=== PATIENT | male | born 1935 | race Caucasian/White ===

== ENCOUNTER 2019-01-16 11:40 | Emergency (ER) | payer MEDICARE, OTHER ==
--- NOTE | 2019-01-16 12:14 | EDM.PDOC ---
ED HPI GENERAL MEDICAL PROBLEM - General Chief Complaint: Lower Extremity Injury/Pain Stated Complaint: FALL - HIP PAIN Time Seen by Provider: 01/16/19 12:14 Source of Information: Reports: Patient, Family History Limitations: Reports: No Limitations - History of Present Illness INITIAL COMMENTS - FREE TEXT/NARRATIVE: The patient presents with left hip pain from a fall. He says last night he slipped and fell and landed on his let hip. He also hit his head. He complains of left hip pain. He can walk with a walker but it hurts. He denies any headache or neck pain. He did have a head bleed in September. He was on blood thinners at that time. He is no longer on the blood thinners. He was sent to [place] at that time and he had jhonny holes. He has been doing good. He denies chest pain or abdominal pain. He has no nausea or vomiting. Onset: Sudden Duration: Day(s): (last night) Location: Reports: Lower Extremity, Left (hip) Quality: Reports: Sharp Severity: Moderate Improves with: Reports: Immobilization Worsens with: Reports: Movement Context: Reports: Trauma (He fell last night) Associated Symptoms: Reports: No Other Symptoms Left Hip Pain Score (Numeric/FACES): 7 - Related Data Allergies Allergy/AdvReac Type Severity Reaction Status Date / Time Penicillins Allergy Hives Verified 01/16/19 12:13 Home Meds: Home Meds Tamsulosin [Flomax] 0.4 mg PO BEDTIME 01/24/15 [History] Aspirin [Halfprin] 81 mg PO DAILY 12/28/15 [History] Furosemide 40 mg PO DAILY 12/28/15 [History] Metoprolol Tartrate 25 mg PO BID 12/28/15 [History] Timolol Maleate [Timoptic-XE 0.5% Ophth Gel] 1 drop EYEBOTH DAILY 12/28/15 [ History] Acetaminophen [Tylenol] 650 mg PO 10/09/18 [History] Finasteride 5 mg PO DAILY 10/09/18 [History] Insulin Lispro [HumaLOG] 0 unit SQ QID 10/09/18 [History] Omeprazole 20 mg PO BIDAC 10/09/18 [History] Ondansetron [Zofran ODT] 4 mg PO Q6H PRN 10/09/18 [History] Sennosides [Senna] 8.6 mg PO DAILY 10/09/18 [History] atorvaSTATin [Lipitor] 40 mg PO BEDTIME 10/09/18 [History] metFORMIN [Glucophage] 500 mg PO BIDMEALS 10/09/18 [History] Past Medical History HEENT History: Reports: Impaired Vision Cardiovascular History: Reports: Hypertension Gastrointestinal History: Reports: Inflammatory Bowel Disease Other Gastrointestinal History: Hernia Genitourinary History: Reports: BPH Neurological History: Reports: CVA, Head Trauma, Other (See Below) 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 Psychiatric History: Reports: None Immunologic History: Reports: Other (See Below) - Past Surgical History HEENT Surgical History: Reports: Cataract Surgery Male Surgical History: Reports: Other (See Below) Musculoskeletal Surgical History: Reports: Carpal Tunnel, Knee Replacement Social & Family History - Living Situation & Occupation Living situation: Reports: , with Spouse Occupation: Retired Review of Systems - Review of Systems Review Of Systems: See Below Constitutional: Reports: No Symptoms Eyes: Reports: No Symptoms Ears: Reports: No Symptoms Nose: Reports: No Symptoms Mouth/Throat: Reports: No Symptoms Respiratory: Reports: No Symptoms Cardiovascular: Reports: No Symptoms GI/Abdominal: Reports: No Symptoms Genitourinary: Reports: No Symptoms Musculoskeletal: Reports: Other (Left hip pain with movement and palpation) ED EXAM, GENERAL - Physical Exam Exam: See Below Exam Limited By: No Limitations General Appearance: Alert, No Apparent Distress Ears: Normal External Exam Nose: Normal Inspection Head: Atraumatic, Normocephalic Neck: Normal Inspection, Supple, Non-Tender Respiratory/Chest: No Respiratory Distress, Lungs Clear, Normal Breath Sounds Cardiovascular: Regular Rate, Rhythm, No Edema, No Murmur GI/Abdominal: Soft, Non-Tender, No Organomegaly, No Mass Extremities: Other (Pain upon palpation to the left hip and pain with intarnal and external rotation of the hip) Course - Vital Signs Last Recorded V/S: Last Vital Signs Temp 98.5 F 01/16/19 12:13 Pulse 79 01/16/19 12:13 Resp 18 01/16/19 12:13 BP 124/72 01/16/19 12:13 Pulse Ox 97 01/16/19 12:13 - Re-Assessments/Exams Free Text/Narrative Re-Assessment/Exam: 01/16/19 12:[address] of his head and left hip. 01/16/19 13:[address] of his head shows a small acute subdural hematoma overlying the left parietal region. This has maximum thickness of 3.4mm. Other senescent change which is stable. Slightly comminuted and minimally displaced fracture within the greater trochanter of the left proximal femur. Degenerative change and osteopenia. No other acute abnormality is appreciated. I called [facility] in [place] and talked with the neurosurgeon continuous pickling line pickler helper Dr Diallo and he did not feel the patient needed to be admitted. He wanted a repeat CT in 4 to 6 weeks. I also talked to Dr Shepard the orthopedic surgeon continuous pickling line pickler helper in [place] and he looked at the CT and he says this is not operable and he wanted him weight bearing as tolerated. I let the patient and family know and they were relieved. The do want to go home. I will have him follow up with Dr Bray. 01/16/19 14:04 He does have a walker at home. Departure - Departure Time of Disposition: 14:05 Disposition: Home, Self-Care 01 Condition: Good Clinical Impression: Fall Qualifiers: Encounter type: initial encounter Qualified Code(s): W19.XXXA - Unspecified fall, initial encounter Greater trochanter fracture Qualifiers: Encounter type: initial encounter Fracture type: closed Fracture alignment: nondisplaced Laterality: left Qualified Code(s): S72.115A - Nondisplaced fracture of greater trochanter of left femur, initial encounter for closed fracture - Discharge Information *PRESCRIPTION DRUG MONITORING PROGRAM REVIEWED*: Not Applicable *COPY OF PRESCRIPTION DRUG MONITORING REPORT IN PATIENT CHHAYA: Not Applicable Referrals: Jarad Montana MD [Primary Care Provider] - Shubham Bray MD [Physician] - 1 Week Rip Diallo MD [Consulting Physician] - Forms: ED Department Discharge Additional Instructions: Take your medication as prescribed. Ice your hip for 15 minutes every other hour while awake for 2 days. Weight bear as tolerated for 4 weeks. Have a follow up CT in 4 to 6 weeks. Follow up with Dr Diallo and Dr Bray. Please return if you have any headache, nausea, vomiting or if you are not acting right.
[2019-01-16 12:16] VITALS: BP 124/72
--- NOTE | 2019-01-16 13:08 | CT ---
Pelvis Technique: Multiple axial sections through the pelvis were obtained. Intravenous contrast was not utilized. Study performed as a bone algorithm exam. Findings: Comminuted fracture is identified within the greater trochanter of the left proximal femur. Greatest fracture widening is about 6.5 mm. Chondrocalcinosis is noted within both hips. Medial joint space narrowing is seen within the left hip. Small osteophyte noted off the left femoral head. Bony structures are osteopenic. No additional fracture is appreciated. Degenerative change is noted within the visualized lower lumbar spine. Impression: 1. Slightly comminuted and minimally displaced fracture within the greater trochanter of the left proximal femur. 2. Degenerative change and osteopenia. No other acute abnormality is appreciated. Diagnostic code #3
--- NOTE | 2019-01-16 13:08 | CT ---
Head CT Technique: Multiple axial sections through the brain were obtained. Intravenous contrast was not utilized. Comparison: Previous head CT study of 10/09/18. Findings: Small amount of acute blood is seen in a subdural location overlying the left parietal region. Thickness of this subdural collection is 3.4 mm. This is an interval change from previous exam. Prior study showed a right-sided subdural hematoma which is no longer present. Ventricles along with basal cisterns and sulci over the convexities are moderately prominent. Symmetric increase in size of the subdural spaces are noted on both sides most prominent anteriorly which is stable from prior head CT. Old infarct is noted within the right occipital lobe. Mild diminished density is noted within the periventricular and subcortical white matter compatible with small vessel ischemic demyelination change. Old infarct is noted within the left basal ganglia. Bone window settings were reviewed which show no acute calvarial abnormality. Visualized sinuses are clear. Impression: 1. Small acute subdural hematoma overlying the left parietal region. This has maximum thickness of 3.4 mm. 2. Other senescent change as noted above which is stable. Diagnostic code #5
== END 2019-01-16 14:32 | disposition home or self-care (01) ==
LOC: JD.ED 11:40
DX: S72.115A Nondisplaced fracture of greater trochanter of left femur, initial encounter for closed fracture (principal); I10 Essential (primary) hypertension; Z79.82 Long term (current) use of aspirin; Z79.899 Other long term (current) drug therapy; Z88.0 Allergy status to penicillin; W01.0XXA Fall on same level from slipping, tripping and stumbling without subsequent striking against object, initial encounter
CPT/HCPCS: 70450; 70450-26; 72192; 72192-26; 99283-25

== ENCOUNTER 2019-02-11 13:31 | Inpatient (IN) | payer MEDICARE, OTHER ==
[2019-02-11] MEDS ORDERED: HYDROmorphone 0.5 MG/0.5 ML Syringe ONE ×3 (14:19→18:49)
[2019-02-11] MEDS ORDERED: HYDROmorphone 1 MG/ML Syringe IVPUSH ONE (14:20)
[2019-02-11] MEDS: HYDROmorphone 0.5 MG/0.5 ML Syringe IVPUSH STA ×2 (14:26→14:47)
--- NOTE | 2019-02-11 15:29 | CR ---
Pelvis and right hip: AP view of the pelvis was obtained as well as lateral view of the right hip. Angulated intertrochanteric fracture is seen with isolation of the lesser trochanter. Bridging heterotopic bone noted within the left hip being seen laterally. Bony structures are osteopenic. Vascular calcification is noted. No additional abnormality is seen. Impression: 1. Acute intertrochanteric fracture with angulation involving the right hip. 2. Other chronic findings as noted above. Diagnostic code #3
[2019-02-11] MEDS ORDERED: HYDROmorphone 0.5 MG/0.5 ML Syringe IVPUSH STA ×2 (15:56→18:45)
--- NOTE | 2019-02-11 15:59 | EDM.PDOC ---
ED HPI GENERAL MEDICAL PROBLEM - General Chief Complaint: Lower Extremity Injury/Pain Stated Complaint: [facility] Time Seen by Provider: 02/11/19 13:53 Source of Information: Reports: Patient, Family History Limitations: Reports: No Limitations - History of Present Illness INITIAL COMMENTS - FREE TEXT/NARRATIVE: 83 yo M is brought in by ambulance after his legs "gave out" and he fell on his R hip at about 1200. Currently has pain to the hip, it is turned outward and shortened and he can't weight bear or move it without pain. He denies any LOC or head injury and remembers the entire event; currently A+O x3. He denies feeling dizziness or any other symptoms at the time of the fall. He did eat breakfast this morning and took all of his daily pills. Pt has h/o of recent fracture of the L hip after slipping on ice about a month ago. He also has h/o head bleed about 2 months ago and has an appointment set up outpt for repeat Head CT on February [address] Montana. Family is concerned at this time about his previous head bleed and would like the CT head to be done while he is here. No other complaints at this time. PCP is Dr. Montana. Pt is a Full Code. Right Hip Pain Score (Numeric/FACES): 0 - Related Data Allergies Allergy/AdvReac Type Severity Reaction Status Date / Time Penicillins Allergy Hives Verified 02/11/19 13:36 Home Meds: Home Meds Tamsulosin [Flomax] 0.4 mg PO BEDTIME 01/24/15 [History] Furosemide 40 mg PO DAILY 12/28/15 [History] Metoprolol Tartrate 25 mg PO BID 12/28/15 [History] Acetaminophen [Tylenol] 650 mg PO Q6HR PRN 10/09/18 [History] Finasteride 5 mg PO DAILY 10/09/18 [History] Omeprazole 20 mg PO BIDAC 10/09/18 [History] Sennosides [Senna] 8.6 mg PO DAILY 10/09/18 [History] atorvaSTATin [Lipitor] 40 mg PO BEDTIME 10/09/18 [History] traMADol [Ultram] 50 mg PO Q8HR PRN 02/11/19 [History] Past Medical History HEENT History: Reports: Impaired Vision Cardiovascular History: Reports: Hypertension Gastrointestinal History: Reports: Inflammatory Bowel Disease Other Gastrointestinal History: Hernia Genitourinary History: Reports: BPH Neurological History: Reports: CVA, Head Trauma, Other (See Below) 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 Psychiatric History: Reports: None Immunologic History: Reports: Other (See Below) - Past Surgical History HEENT Surgical History: Reports: Cataract Surgery GI Surgical History: Reports: Cholecystectomy, Colonoscopy, EGD, ERCP Male Surgical History: Reports: Other (See Below) Musculoskeletal Surgical History: Reports: Carpal Tunnel, Hip Replacement, Knee Replacement Social & Family History - Tobacco Use Smoking Status *Q: Never Smoker - Caffeine Use Caffeine Use: Reports: Coffee - Recreational Drug Use Recreational Drug Use: No - Living Situation & Occupation Living situation: Reports: , with Spouse Occupation: Retired Review of Systems - Review of Systems Review Of Systems: ROS reveals no pertinent complaints other than HPI. ED EXAM, GENERAL - Physical Exam Exam: See Below Exam Limited By: No Limitations General Appearance: Alert, WD/WN, Moderate Distress Eye Exam: Bilateral Eye: EOMI, Normal Inspection, PERRL Ears: Normal External Exam, Hearing Grossly Normal Nose: Normal Inspection, Normal Mucosa, No Blood Throat/Mouth: Normal Inspection, Normal Lips, Normal Teeth, Normal Gums, Normal Oropharynx, Normal Voice, No Airway Compromise Head: Atraumatic, Normocephalic Neck: Normal Inspection, Supple, Non-Tender, Full Range of Motion Respiratory/Chest: No Respiratory Distress, Lungs Clear, Normal Breath Sounds, No Accessory Muscle Use, Chest Non-Tender Cardiovascular: Normal Peripheral Pulses, Regular Rate, Rhythm, No Edema, No Gallop, No JVD, No Rub, Other (Murmur) Peripheral Pulses: 2+: Posterior Tibial (L), Posterior Tibial (R), Dorsalis Pedis (L), Dorsalis Pedis (R) GI/Abdominal: Normal Bowel Sounds, Soft, Non-Tender, No Organomegaly, No Distention, No Abnormal Bruit, No Mass Back Exam: Normal Inspection Extremities: No Pedal Edema, Normal Capillary Refill, Limited Range of Motion ( R hip), Other (R hip pain; leg is turned outward and shortened) Neurological: Alert, Oriented, CN II-XII Intact, Normal Cognition, Normal Reflexes, No Motor/Sensory Deficits, Abnormal Gait (s/p fracture R hip) Psychiatric: Normal Affect, Normal Mood Skin Exam: Warm, Dry, Intact, Normal Color, No Rash Course - Vital Signs Last Recorded V/S: Last Vital Signs Temp 98.2 F 02/11/19 13:36 Pulse 73 02/11/19 13:36 Resp 20 02/11/19 17:58 BP 152/78 H 02/11/19 13:36 Pulse Ox 99 02/11/19 17:58 - Orders/Labs/Meds Orders: Active Orders 24 hr Category Date Time Status Admission Status [Patient Status] [ADT] Routine ADT 02/11/19 17:59 Active CBC WITH MANUAL DIFF [HEME] Stat Lab 02/11/19 13:50 Results UA W/MICROSCOPIC [URIN] Stat Lab 02/11/19 17:35 Ordered Code Status [Resuscitation Status] Stat Resus Stat 02/11/19 18:02 Ordered Labs: Laboratory Tests 02/11/19 02/11/19 02/11/19 Range/Units 13:50 13:50 13:50 WBC 12.16 H (4.23-9.07) K/mm3 RBC 4.21 L (4.63-6.08) M/mm3 Hgb 12.7 L (13.7-17.5) gm/L Hct 39.5 L (40.1-51.0) % MCV 93.8 H (79.0-92.2) fl MCH 30.2 (25.7-32.2) pg MCHC 32.2 (32.2-35.5) g/dl RDW Std Deviation 45.8 H (35.1-43.9) fL Plt Count 205 (163-337) K/mm3 MPV 12.6 H (9.4-12.3) fl PT (9.5-12.1) SECONDS INR Sodium 141 (136-145) mEq/L Potassium 4.0 (3.5-5.1) mEq/L Chloride 105 (98-107) mEq/L Carbon Dioxide 32 (21-32) mEq/L Anion Gap 8.0 (5-15) BUN 19 H (7-18) mg/dL Creatinine 0.9 (0.7-1.3) mg/dL Est Cr Clr Drug Dosing 60.01 mL/min Estimated GFR (MDRD) > 60 (>60) mL/min BUN/Creatinine Ratio 21.1 H (14-18) Glucose 145 H (83-115) mg/dL Calcium 8.8 (8.5-10.1) mg/dL Total Bilirubin 1.1 H (0.2-1.0) mg/dL AST 14 L (15-37) U/L ALT 19 (16-63) U/L Alkaline Phosphatase 108 (46-116) U/L Troponin I < 0.017 (0.00-0.056) ng/mL NT-Pro-B Natriuret Pep 194 (0-450) pg/mL Total Protein 6.7 (6.4-8.2) g/dl Albumin 3.5 (3.4-5.0) g/dl Globulin 3.2 gm/dL Albumin/Globulin Ratio 1.1 (1-2) 02/11/19 Range/Units 13:50 WBC (4.23-9.07) K/mm3 RBC (4.63-6.08) M/mm3 Hgb (13.7-17.5) gm/L Hct (40.1-51.0) % MCV (79.0-92.2) fl MCH (25.7-32.2) pg MCHC (32.2-35.5) g/dl RDW Std Deviation (35.1-43.9) fL Plt Count (163-337) K/mm3 MPV (9.4-12.3) fl PT 11.7 (9.5-12.1) SECONDS INR 1.07 Sodium (136-145) mEq/L Potassium (3.5-5.1) mEq/L Chloride (98-107) mEq/L Carbon Dioxide (21-32) mEq/L Anion Gap (5-15) BUN (7-18) mg/dL Creatinine (0.7-1.3) mg/dL Est Cr Clr Drug Dosing mL/min Estimated GFR (MDRD) (>60) mL/min BUN/Creatinine Ratio (14-18) Glucose (83-115) mg/dL Calcium (8.5-10.1) mg/dL Total Bilirubin (0.2-1.0) mg/dL AST (15-37) U/L ALT (16-63) U/L Alkaline Phosphatase (46-116) U/L Troponin I (0.00-0.056) ng/mL NT-Pro-B Natriuret Pep (0-450) pg/mL Total Protein (6.4-8.2) g/dl Albumin (3.4-5.0) g/dl Globulin gm/dL Albumin/Globulin Ratio (1-2) Meds: Medications Discontinued Medications Generic Name Dose Route Start Last Admin Trade Name Miguel PRN Reason Stop Dose Admin Hydromorphone HCl 0.5 mg 02/11/19 14:20 02/11/19 14:22 Dilaudid IVPUSH 02/11/19 14:21 0.5 mg ONETIME ONE Administration Hydromorphone HCl Confirm 02/11/19 14:19 02/11/19 14:26 Dilaudid Administered 02/11/19 14:20 Not Given Dose 0.5 mg .ROUTE .STK-MED ONE Hydromorphone HCl 0.5 mg 02/11/19 14:20 02/11/19 14:47 Dilaudid IVPUSH 02/11/19 14:21 0.5 mg NOW STA Administration Hydromorphone HCl 0.5 mg 02/11/19 15:56 02/11/19 16:00 Dilaudid IVPUSH 02/11/19 15:57 0.5 mg ONETIME STA Administration Hydromorphone HCl Confirm 02/11/19 15:59 Dilaudid Administered 02/11/19 16:00 Dose 0.5 mg .ROUTE .STK-MED ONE - Re-Assessments/Exams Free Text/Narrative Re-Assessment/Exam: 02/11/19 13:54 Hip XR ordered. 02/11/19 15:21 Hip XR read by Dr. Sanches shows acute intertrochanteric fracture with angulation involving the right hip. 02/11/19 15:[address] Bray. Wants to do surgery in the AM (possibly between 7: 30-8:30) and requests the pt be admitted to the hospitalist. Pt can eat but should be NPO at midnight. 02/11/19 16:00 Case discussed with Hospitalist Dr. Degroot. She is concerned about the previous head bleed along with the random "giving out" of the legs. She requests a Head CT be ordered to r/o head bleed that may have caused the fall before pt will be accepted to the hospital. 02/11/19 17:[address] Sanches as Chronic findings as noted above and other senescent change. Nothing acute is identified on current noncontrast head CT exam. Discussed with Dr. Degroot and she would like labs to be done. Pt will be admitted to Med Surg on Telemetry. Departure - Departure Time of Disposition: 17:41 Disposition: Admitted As Inpatient 66 Condition: Fair Clinical Impression: Intertrochanteric fracture, hip - Discharge Information *PRESCRIPTION DRUG MONITORING PROGRAM REVIEWED*: Not Applicable *COPY OF PRESCRIPTION DRUG MONITORING REPORT IN PATIENT CHHAYA: Not Applicable Referrals: Jarad Montana MD [Primary Care Provider] - Shubham Bray MD [Physician] - Forms: ED Department Discharge - My Orders Last 24 Hours: My Active Orders 02/11/19 13:50 CBC WITH MANUAL DIFF [HEME] Stat 02/11/19 17:35 UA W/MICROSCOPIC [URIN] Stat 02/11/19 17:59 Admission Status [Patient Status] [ADT] Routine 02/11/19 18:02 Code Status [Resuscitation Status] Stat - Assessment/Plan Last 24 Hours: My Active Orders 02/11/19 13:50 CBC WITH MANUAL DIFF [HEME] Stat 02/11/19 17:35 UA W/MICROSCOPIC [URIN] Stat 02/11/19 17:59 Admission Status [Patient Status] [ADT] Routine 02/11/19 18:02 Code Status [Resuscitation Status] Stat
--- NOTE | 2019-02-11 16:48 | CT ---
Head CT Technique: Multiple axial sections through the brain were obtained. Intravenous contrast was not utilized. Comparison: Prior head CT study of 01/16/19 is available. Findings: Ventricles along with basal cisterns and sulci over convexities are moderately prominent. Old infarct is again seen within the right occipital lobe. Old lacunar infarcts are noted within the basal ganglia which appears stable. Enlarged CSF space seen within the left temporal fossa compatible with focal atrophy within the left temporal region. No acute intracranial hemorrhage is seen. Minimal thickening of the dura overlying the left convexity is seen compatible with old subdural hematoma or chronic subdural thickening from previous acute hemorrhage. This previous intracranial hemorrhage has resolved. Bone window settings were reviewed which shows the visualized sinuses show nothing acute. No acute calvarial abnormality is seen. Bilateral jhonny holes are incidentally noted. Impression: 1. Chronic findings as noted above and other senescent change. Nothing acute is identified on current noncontrast head CT exam. Diagnostic code #2
--- NOTE | 2019-02-11 17:39 | PCM.PREANE ---
<Jesus Tellez M - Last Filed: 02/11/19 18:48> Preanesthetic Assessment - Procedure Proposed Procedure: gamma nail- - Anesthesia/Transfusion/Family Hx Anesthesia History: Prior Anesthesia Without Reaction Family History of Anesthesia Reaction: No Transfusion History: No Prior Transfusion(s) - Review of Systems General: Weakness (and arthritis) Pulmonary: No Symptoms Cardiovascular: No Symptoms Gastrointestinal: No Symptoms Neurological: Weakness, Gait Disturbance (falls alot- family states due to shuffling when walking), Other (lost peripheral vision in 2016) Other: Reports: None - Physical Assessment NPO Status Date: 02/10/19 O2 Sat by Pulse Oximetry: 99 Respiratory Rate: 20 Vital Signs: Last Vital Signs Temp 37.0 C 02/12/19 04:25 Pulse 97 02/12/19 06:18 Resp 16 02/12/19 04:25 BP 141/67 H 02/12/19 06:18 Pulse Ox 96 02/12/19 04:25 Height: 1.75 m Weight: 81.647 kg ASA Class: 3 Mental Status: Alert & Oriented x3 Airway Class: Mallampati = 1 Dentition: Reports: Dentures (top ), Partial (bottom) Thyro-Mental Finger Breadths: 3 Mouth Opening Finger Breadths: 3 ROM/Head Extension: Full Lungs: Clear to Auscultation, Normal Respiratory Effort Cardiovascular: Regular Rate, Regular Rhythm, Murmurs - Lab Values: Laboratory Last Values WBC 10.37 K/mm3 (4.23-9.07) H 02/12/19 05:25 RBC 3.70 M/mm3 (4.63-6.08) L 02/12/19 05:25 Hgb 11.3 gm/L (13.7-17.5) L 02/12/19 05:25 Hct 34.8 % (40.1-51.0) L 02/12/19 05:25 MCV 94.1 fl (79.0-92.2) H 02/12/19 05:25 MCH 30.5 pg (25.7-32.2) 02/12/19 05:25 MCHC 32.5 g/dl (32.2-35.5) 02/12/19 05:25 RDW Std Deviation 46.8 fL (35.1-43.9) H 02/12/19 05:25 Plt Count 154 K/mm3 (163-337) L 02/12/19 05:25 MPV 12.8 fl (9.4-12.3) H 02/12/19 05:25 Neut % (Auto) 59.3 % (34.0-67.9) 02/12/19 05:25 Lymph % (Auto) 25.8 % (21.8-53.1) 02/12/19 05:25 [place] % (Auto) 13.1 % (5.3-12.2) H 02/12/19 05:25 Eos % (Auto) 1.2 (0.8-7.0) 02/12/19 05:25 Baso % (Auto) 0.3 % (0.1-1.2) 02/12/19 05:25 Neut # (Auto) 6.15 K/mm3 (1.78-5.38) H 02/12/19 05:25 Lymph # (Auto) 2.68 K/mm3 (1.32-3.57) 02/12/19 05:25 [place] # (Auto) 1.36 K/mm3 (0.30-0.82) H 02/12/19 05:25 Eos # (Auto) 0.12 K/mm3 (0.04-0.54) 02/12/19 05:25 Baso # (Auto) 0.03 K/mm3 (0.01-0.08) 02/12/19 05:25 Neutrophils % (Manual) 70 % (40-60) H 02/11/19 13:50 Band Neutrophils % 1 % (0-10) 02/11/19 13:50 Lymphocytes % (Manual) 19 % (20-40) L 02/11/19 13:50 Atypical Lymphs % 0 % 02/11/19 13:50 Monocytes % (Manual) 8 % (2-10) 02/11/19 13:50 Eosinophils % (Manual) 1 % (0.8-7.0) 02/11/19 13:50 Basophils % (Manual) 1 (0.2-1.2) 02/11/19 13:50 Platelet Estimate Adequate 02/11/19 13:50 Plt Morphology Comment See note 02/11/19 13:50 RBC Morph Comment Normal 02/11/19 13:50 PT 11.9 SECONDS (9.5-12.1) 02/12/19 05:25 INR 1.09 02/12/19 05:25 APTT 30 SECONDS (24-31) 02/12/19 05:25 Sodium 141 mEq/L (136-145) 02/12/19 05:25 Potassium 3.6 mEq/L (3.5-5.1) 02/12/19 05:25 Chloride 104 mEq/L (98-107) 02/12/19 05:25 Carbon Dioxide 28 mEq/L (21-32) 02/12/19 05:25 Anion Gap 12.6 (5-15) 02/12/19 05:25 BUN 19 mg/dL (7-18) H 02/12/19 05:25 Creatinine 0.8 mg/dL (0.7-1.3) 02/12/19 05:25 Est Cr Clr Drug Dosing 67.51 mL/min 02/12/19 05:25 Estimated GFR (MDRD) > 60 mL/min (>60) 02/12/19 05:25 BUN/Creatinine Ratio 23.8 (14-18) H 02/12/19 05:25 Glucose 132 mg/dL (83-115) H 02/12/19 05:25 Calcium 8.8 mg/dL (8.5-10.1) 02/12/19 05:25 Total Bilirubin 1.1 mg/dL (0.2-1.0) H 02/11/19 13:50 AST 14 U/L (15-37) L 02/11/19 13:50 ALT 19 U/L (16-63) 02/11/19 13:50 Alkaline Phosphatase 108 U/L (46-116) 02/11/19 13:50 Troponin I < 0.017 ng/mL (0.00-0.056) 02/11/19 13:50 C-Reactive Protein 2.5 mg/dL (<1.0) H* 02/12/19 05:25 NT-Pro-B Natriuret Pep 194 pg/mL (0-450) 02/11/19 13:50 Total Protein 6.7 g/dl (6.4-8.2) 02/11/19 13:50 Albumin 3.5 g/dl (3.4-5.0) 02/11/19 13:50 Globulin 3.2 gm/dL 02/11/19 13:50 Albumin/Globulin Ratio 1.1 (1-2) 02/11/19 13:50 Urine Color Yellow (Yellow) 02/11/19 19:00 Urine Appearance Clear (Clear) 02/11/19 19:00 Urine pH 5.5 (5.0-8.0) 02/11/19 19:00 Ur Specific [place] 1.025 (1.005-1.030) 02/11/19 19:00 Urine Protein Negative (Negative) 02/11/19 19:00 Urine Glucose (UA) Negative (Negative) 02/11/19 19:00 Urine Ketones Negative (Negative) 02/11/19 19:00 Urine Occult Blood Negative (Negative) 02/11/19 19:00 Urine Nitrite Negative (Negative) 02/11/19 19:00 Urine Bilirubin Negative (Negative) 02/11/19 19:00 Urine Urobilinogen 0.2 (0.2-1.0) 02/11/19 19:00 Ur Leukocyte Esterase Negative (Negative) 02/11/19 19:00 Urine RBC Not seen /hpf (0-5) 02/11/19 19:00 Urine WBC 0-5 /hpf (0-5) 02/11/19 19:00 Ur Epithelial Cells 0-5 /hpf (0-5) 02/11/19 19:00 Calcium Oxalate Crystal Few (NONE) H 02/11/19 19:00 Urine Bacteria Rare /hpf (FEW) 02/11/19 19:00 Urine Mucus Not seen /hpf (FEW) 02/11/19 19:00 MRSA (PCR) Negative 02/11/19 22:10 - Allergies Allergies/Adverse Reactions: Allergies Allergy/AdvReac Type Severity Reaction Status Date / Time Penicillins Allergy Hives Verified 02/11/19 13:36 - Blood Blood Available: No - Anesthesia Plan Pre-Op Medication Ordered: Beta Radha Beta Radha: Metoprolol - Acknowledgements Anesthesia Type Planned: Spinal Pt an Appropriate Candidate for the Planned Anesthesia: Yes Alternatives and Risks of Anesthesia Discussed w Pt/Guardian: Yes Pt/Guardian Understands and Agrees with Anesthesia Plan: Yes PreAnesthesia Questionnaire HEENT History: Reports: Impaired Vision Cardiovascular History: Reports: High Cholesterol, Hypertension Respiratory History: Reports: None Genitourinary History: Reports: BPH, Other (See Below) (had bladder cancer) Neurological History: Reports: CVA, Head Trauma (fell in 2017- brain bleed - jhonny holes- he was in rehab because very weak- now back home since oct 2018.) , Other (See Below) 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 Psychiatric History: Reports: None Immunologic History: Reports: Other (See Below) Oncologic (Cancer) History: Reports: Bladder - Past Surgical History HEENT Surgical History: Reports: Cataract Surgery, Tonsillectomy, Other (See Below) (jhonny holes brain- sep 2018) Cardiovascular Surgical History: Reports: Carotid Stents (2011) GI Surgical History: Reports: Cholecystectomy (2016- had bile tube and became septic after gall bladder surgery), Colonoscopy, EGD, ERCP, Hernia, Inguinal Male Surgical History: Reports: Other (See Below) Musculoskeletal Surgical History: Reports: Carpal Tunnel, Knee Replacement - History Comment History Comment: family prefers we do surgery here. Informed about no neuro, cardiac or pulmonology specialists. Agrees to proceed - SUBSTANCE USE Smoking Status *Q: Never Smoker Tobacco Use Within Last Twelve Months: No Second Hand Smoke Exposure: No Days Per Week of Alcohol Use: 1 (rare) Recreational Drug Use History: No - HOME MEDS Home Medications: Home Meds Tamsulosin [Flomax] 0.4 mg PO BEDTIME 01/24/15 [History] Furosemide 40 mg PO DAILY 12/28/15 [History] Metoprolol Tartrate 25 mg PO BID 12/28/15 [History] Acetaminophen [Tylenol] 650 mg PO Q6HR PRN 10/09/18 [History] Finasteride 5 mg PO DAILY 10/09/18 [History] Omeprazole 20 mg PO BIDAC 10/09/18 [History] Sennosides [Senna] 8.6 mg PO DAILY 10/09/18 [History] atorvaSTATin [Lipitor] 40 mg PO BEDTIME 10/09/18 [History] traMADol [Ultram] 50 mg PO Q8HR PRN 02/11/19 [History] - CURRENT (IN HOUSE) MEDS Current Meds: Current Medications Hydrocodone Bitart/Acetaminophen ([place] 325-5 Mg) 1 tab PO Q6H PRN PRN Reason: Pain (moderate 4-6) Last Admin: 02/11/19 21:17 Dose: 1 tab Finasteride (Proscar) 5 mg PO DAILY [facility] Hydralazine HCl (Apresoline) 10 mg IVPUSH Q6H PRN PRN Reason: Hypertension Hydromorphone HCl (Dilaudid) 0.5 mg IVPUSH Q4H PRN PRN Reason: Pain (moderate 4-6) Last Admin: 02/12/19 06:24 Dose: 0.5 mg Metoprolol Tartrate (Lopressor) 12.5 mg PO BID [facility] Last Admin: 02/12/19 06:18 Dose: 12.5 mg Rosuvastatin Calcium (Crestor) 10 mg PO BEDTIME JEFF Last Admin: 02/11/19 21:19 Dose: 10 mg Senna (Senna) 8.6 mg PO DAILY JEFF Tamsulosin HCl (Flomax) 0.4 mg PO BEDTIME [facility] Last Admin: 02/11/19 21:18 Dose: 0.4 mg Discontinued Medications Bupivacaine HCl (Marcaine 0.25%) Confirm Administered Dose 30 ml .ROUTE .STK- MED ONE Stop: 02/12/19 06:29 Last Admin: 02/12/19 08:39 Dose: 30 ml Bupivacaine HCl (Sensorcaine-Mpf 0.75%) Confirm Administered Dose 30 ml .ROUTE .STK-MED ONE Stop: 02/12/19 07:08 Dexamethasone (Dexamethasone) Confirm Administered Dose 4 mg .ROUTE .STK-MED ONE Stop: 02/12/19 08:20 Ephedrine Sulfate (Ephedrine In Ns) Confirm Administered Dose 25 mg .ROUTE .STK- MED ONE Stop: 02/12/19 08:19 Fentanyl (Sublimaze) Confirm Administered Dose 100 mcg .ROUTE .STK-MED ONE Stop: 02/12/19 07:02 Hydromorphone HCl (Dilaudid) 0.5 mg IVPUSH ONETIME ONE Stop: 02/11/19 14:21 Last Admin: 02/11/19 14:22 Dose: 0.5 mg Hydromorphone HCl (Dilaudid) Confirm Administered Dose 0.5 mg .ROUTE .STK-MED ONE Stop: 02/11/19 14:20 Last Admin: 02/11/19 14:26 Dose: Not Given Hydromorphone HCl (Dilaudid) 0.5 mg IVPUSH NOW STA Stop: 02/11/19 14:21 Last Admin: 02/11/19 14:47 Dose: 0.5 mg Hydromorphone HCl (Dilaudid) 0.5 mg IVPUSH ONETIME STA Stop: 02/11/19 15:57 Last Admin: 02/11/19 16:00 Dose: 0.5 mg Hydromorphone HCl (Dilaudid) Confirm Administered Dose 0.5 mg .ROUTE .STK-MED ONE Stop: 02/11/19 16:00 Last Admin: 02/11/19 18:29 Dose: Not Given Hydromorphone HCl (Dilaudid) Confirm Administered Dose 0.5 mg .ROUTE .STK-MED ONE Stop: 02/11/19 18:50 Last Admin: 02/11/19 19:03 Dose: Not Given Hydromorphone HCl (Dilaudid) 0.5 mg IVPUSH ONETIME STA Stop: 02/11/19 18:46 Last Admin: 02/11/19 18:45 Dose: 0.5 mg Hydromorphone HCl (Dilaudid) 0.5 mg IVPUSH Q4H PRN PRN Reason: Pain (moderate 4-6) Sodium Chloride (Sodium Chloride 0.45%) 1,000 mls @ 75 mls/hr IV ASDIRECTED JEFF Stop: 02/12/19 02:45 Last Admin: 02/11/19 22:32 Dose: 75 mls/hr Lidocaine HCl (Xylocaine-Mpf 1%) Confirm Administered Dose 4 mls @ as directed .ROUTE .STK-MED ONE Stop: 02/12/19 07:03 Lidocaine HCl (Xylocaine-Mpf 1%) Confirm Administered Dose 5 mls @ as directed .ROUTE .STK-MED ONE Stop: 02/12/19 07:08 Clindamycin Phosphate 900 mg/ (Sodium Chloride) 106 mls @ 212 mls/hr IV ONETIME ONE Stop: 02/12/19 08:14 Ketamine HCl (Ketalar) Confirm Administered Dose 500 mg .ROUTE .STK-MED ONE Stop: 02/12/19 07:02 Midazolam HCl (Versed 1 Mg/Ml) Confirm Administered Dose 2 mg .ROUTE .STK-MED ONE Stop: 02/12/19 07:02 Ondansetron HCl (Zofran) Confirm Administered Dose 4 mg .ROUTE .STK-MED ONE Stop: 02/12/19 08:20 Phenylephrine HCl (Phenylephrine In Ns 100 Mcg/Ml) Confirm Administered Dose 1 mg .ROUTE .STK-MED ONE Stop: 02/12/19 08:19 Propofol (Diprivan 20 Ml) Confirm Administered Dose 600 mg .ROUTE .STK-MED ONE Stop: 02/12/19 07:02 <Lety Loera - Last Filed: 02/12/19 08:52> Preanesthetic Assessment - Physical Assessment NPO Status Date: 02/11/19 NPO Status Time: 21:00 - Anesthesia Plan Med Last Dose Date: 02/12/19 Med Last Dose Time: 06:20
--- NOTE | 2019-02-11 19:05 | PCM.HP ---
H&P History of Present Illness - General Date of Service: 02/11/19 Admit Problem/Dx: Admission Diagnosis/Problem Admission Diagnosis/Problem Intertrochanteric fracture of right femur Source of Information: Family, Provider History Limitations: Reports: No Limitations - History of Present Illness Initial Comments - Free Text/Narative: 83 year old male returns within three weeks of similar presentation with right hip fracture after falling. he denies any LOC. January 16, 2019 he previously fell. Additionally he has had a head bleed approximately [address] of the head had been scheduled for February 19, 2019. Howver it was repeated [employer] on this occasion. The patient will be admitted for a right hip ORIF. He has been seen in the ED by ortho. Past medical history includes: subdural hemorrhage; MRSA; CVA left side; anemia; type 2 diabetes; glaucoma; paroxysmal A. fib; systolic congestive heart failure; emphysema/COPD; chronic kidney disease; BPH. PCP, Dr Montana; he is a full code. C Onset of Symptoms: Reports: Sudden Symptom Onset Date: 02/11/19 Duration of Symptoms: Reports: Hour(s): Location: Reports: Lower Extremity, Right Quality: Reports: Same as Previous Episode Improves with: Reports: Medication Worsens with: Reports: Movement Context: Reports: Activity/Exercise Associated Symptoms: Reports: Weakness Right Hip Pain Score (Numeric/FACES): 0 - Related Data Allergies/Adverse Reactions: Allergies Allergy/AdvReac Type Severity Reaction Status Date / Time Penicillins Allergy Hives Verified 02/11/19 13:36 Home Medications: Home Meds Tamsulosin [Flomax] 0.4 mg PO BEDTIME 01/24/15 [History] Furosemide 40 mg PO DAILY 12/28/15 [History] Metoprolol Tartrate 25 mg PO BID 12/28/15 [History] Acetaminophen [Tylenol] 650 mg PO Q6HR PRN 10/09/18 [History] Finasteride 5 mg PO DAILY 10/09/18 [History] Omeprazole 20 mg PO BIDAC 10/09/18 [History] Sennosides [Senna] 8.6 mg PO DAILY 10/09/18 [History] atorvaSTATin [Lipitor] 40 mg PO BEDTIME 10/09/18 [History] traMADol [Ultram] 50 mg PO Q8HR PRN 02/11/19 [History] Past Medical History HEENT History: Reports: Impaired Vision Cardiovascular History: Reports: High Cholesterol, Hypertension Respiratory History: Reports: None Gastrointestinal History: Reports: Inflammatory Bowel Disease Other Gastrointestinal History: Hernia Genitourinary History: Reports: BPH, Other (See Below) (had bladder cancer) Neurological History: Reports: CVA, Head Trauma (fell in 2017- brain bleed - jhonny holes- he was in rehab because very weak- now back home since oct 2018.) , Other (See Below) 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 Psychiatric History: Reports: None Immunologic History: Reports: Other (See Below) Oncologic (Cancer) History: Reports: Bladder - Past Surgical History HEENT Surgical History: Reports: Cataract Surgery, Tonsillectomy, Other (See Below) (jhonny holes brain- sep 2018) Cardiovascular Surgical History: Reports: Carotid Stents (2011) GI Surgical History: Reports: Cholecystectomy (2015- had bile tube and became septic after gall bladder surgery), Colonoscopy, EGD, ERCP, Hernia, Inguinal Male Surgical History: Reports: Other (See Below) Musculoskeletal Surgical History: Reports: Carpal Tunnel, Knee Replacement - History Comment History Comment: family prefers we do surgery here. Informed about no neuro, cardiac or pulmonology specialists. Agrees to proceed Social & Family History - Tobacco Use Smoking Status *Q: Never Smoker Second Hand Smoke Exposure: No - Caffeine Use Caffeine Use: Reports: Coffee - Alcohol Use Days Per Week of Alcohol Use: 1 (rare) - Recreational Drug Use Recreational Drug Use: No - Living Situation & Occupation Living situation: Reports: , with Spouse Occupation: Retired H&P Review of Systems - Review of Systems: Review Of Systems: See Below General: Reports: Weakness HEENT: Reports: No Symptoms Pulmonary: Reports: No Symptoms Cardiovascular: Reports: No Symptoms Gastrointestinal: Reports: No Symptoms Genitourinary: Reports: No Symptoms Musculoskeletal: Reports: No Symptoms Skin: Reports: No Symptoms Psychiatric: Reports: No Symptoms Neurological: Reports: No Symptoms Hematologic/Lymphatic: Reports: No Symptoms Immunologic: Reports: No Symptoms Exam - Exam Exam: See Below - Vital Signs Vital Signs: Last Vital Signs Temp 36.8 C 02/11/19 13:36 Pulse 73 02/11/19 13:36 Resp 20 02/11/19 18:52 BP 152/78 H 02/11/19 13:36 Pulse Ox 99 02/11/19 18:52 Weight: 81.647 kg - Exam Quality Assessment: DVT Prophylaxis General: Alert, Oriented, Cooperative HEENT: EOMI, Nares Patent, Normal Nasal Septum, Pupils Equal, Pupils Reactive, PERRLA Neck: Trachea Midline Lungs: Normal Respiratory Effort Cardiovascular: Regular Rate GI/Abdominal Exam: Normal Bowel Sounds, Soft, Non-Tender, No Organomegaly, No Distention (Male) Exam: Deferred Rectal (Males) Exam: Deferred Back Exam: Normal Inspection Extremities: Normal Inspection, Non-Tender, Normal Capillary Refill Skin: Warm Neurological: Cranial Nerves Intact Neuro Extensive - Mental Status: Alert, Oriented x3, Normal Mood/Affect, Normal Cognition, Memory Intact Neuro Extensive - Motor, Sensory, Reflexes: CN II-XII Intact Psychiatric: Alert, Normal Affect, Normal Mood - Patient Data Lab Results Last 24 hrs: Laboratory Results - last 24 hr 02/11/19 02/11/19 02/11/19 Range/Units 13:50 13:50 13:50 WBC 12.16 H (4.23-9.07) K/mm3 RBC 4.21 L (4.63-6.08) M/mm3 Hgb 12.7 L (13.7-17.5) gm/L Hct 39.5 L (40.1-51.0) % MCV 93.8 H (79.0-92.2) fl MCH 30.2 (25.7-32.2) pg MCHC 32.2 (32.2-35.5) g/dl RDW Std Deviation 45.8 H (35.1-43.9) fL Plt Count 205 (163-337) K/mm3 MPV 12.6 H (9.4-12.3) fl Neutrophils % (Manual) 70 H (40-60) % Band Neutrophils % 1 (0-10) % Lymphocytes % (Manual) 19 L (20-40) % Atypical Lymphs % 0 % Monocytes % (Manual) 8 (2-10) % Eosinophils % (Manual) 1 (0.8-7.0) % Basophils % (Manual) 1 (0.2-1.2) Platelet Estimate Adequate Plt Morphology Comment See note RBC Morph Comment Normal PT (9.5-12.1) SECONDS INR Sodium 141 (136-145) mEq/L Potassium 4.0 (3.5-5.1) mEq/L Chloride 105 (98-107) mEq/L Carbon Dioxide 32 (21-32) mEq/L Anion Gap 8.0 (5-15) BUN 19 H (7-18) mg/dL Creatinine 0.9 (0.7-1.3) mg/dL Est Cr Clr Drug Dosing 60.01 mL/min Estimated GFR (MDRD) > 60 (>60) mL/min BUN/Creatinine Ratio 21.1 H (14-18) Glucose 145 H (83-115) mg/dL Calcium 8.8 (8.5-10.1) mg/dL Total Bilirubin 1.1 H (0.2-1.0) mg/dL AST 14 L (15-37) U/L ALT 19 (16-63) U/L Alkaline Phosphatase 108 (46-116) U/L Troponin I < 0.017 (0.00-0.056) ng/mL NT-Pro-B Natriuret Pep 194 (0-450) pg/mL Total Protein 6.7 (6.4-8.2) g/dl Albumin 3.5 (3.4-5.0) g/dl Globulin 3.2 gm/dL Albumin/Globulin Ratio 1.1 (1-2) 02/11/19 Range/Units 13:50 WBC (4.23-9.07) K/mm3 RBC (4.63-6.08) M/mm3 Hgb (13.7-17.5) gm/L Hct (40.1-51.0) % MCV (79.0-92.2) fl MCH (25.7-32.2) pg MCHC (32.2-35.5) g/dl RDW Std Deviation (35.1-43.9) fL Plt Count (163-337) K/mm3 MPV (9.4-12.3) fl Neutrophils % (Manual) (40-60) % Band Neutrophils % (0-10) % Lymphocytes % (Manual) (20-40) % Atypical Lymphs % % Monocytes % (Manual) (2-10) % Eosinophils % (Manual) (0.8-7.0) % Basophils % (Manual) (0.2-1.2) Platelet Estimate Plt Morphology Comment RBC Morph Comment PT 11.7 (9.5-12.1) SECONDS INR 1.07 Sodium (136-145) mEq/L Potassium (3.5-5.1) mEq/L Chloride (98-107) mEq/L Carbon Dioxide (21-32) mEq/L Anion Gap (5-15) BUN (7-18) mg/dL Creatinine (0.7-1.3) mg/dL Est Cr Clr Drug Dosing mL/min Estimated GFR (MDRD) (>60) mL/min BUN/Creatinine Ratio (14-18) Glucose (83-115) mg/dL Calcium (8.5-10.1) mg/dL Total Bilirubin (0.2-1.0) mg/dL AST (15-37) U/L ALT (16-63) U/L Alkaline Phosphatase (46-116) U/L Troponin I (0.00-0.056) ng/mL NT-Pro-B Natriuret Pep (0-450) pg/mL Total Protein (6.4-8.2) g/dl Albumin (3.4-5.0) g/dl Globulin gm/dL Albumin/Globulin Ratio (1-2) Result Diagrams: 02/11/19 13:50 02/11/19 13:50 - Problem List (1) Hypertension SNOMED Code(s): 72672526 ICD Code: I10 - ESSENTIAL (PRIMARY) HYPERTENSION Status: Acute Current Visit: Yes (2) Intertrochanteric fracture, hip SNOMED Code(s): 140428129 ICD Code: S72.143A - DISPLACED INTERTROCHANTERIC FRACTURE OF UNSP FEMUR, INIT Status: Acute Current Visit: Yes (3) Bilateral subdural hematomas SNOMED Code(s): 54653638 ICD Code: S06.5X9A - TRAUM SUBDR HEM W LOC OF UNSP DURATION, INIT Status: Acute Current Visit: No (4) 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 SNOMED Code(s): 36751431 ICD Code: I67.2 - CEREBRAL ATHEROSCLEROSIS; Z86.73 - PRSNL HX OF TIA (TIA), AND CEREB INFRC W/O RESID DEFICITS Status: Acute Current Visit: No (5) Cervical radiculopathy SNOMED Code(s): 62436078 ICD Code: M54.12 - RADICULOPATHY, CERVICAL REGION Status: Acute Current Visit: No (6) Congestive heart failure SNOMED Code(s): 63653819 ICD Code: I50.9 - HEART FAILURE, UNSPECIFIED Status: Acute Current Visit : No Qualifiers: Heart failure type: unspecified Heart failure chronicity: acute on chronic Qualified Code(s): I50.9 - Heart failure, unspecified (7) Fall SNOMED Code(s): 9961767, 644395871 ICD Code: W19.XXXA - UNSPECIFIED FALL, INITIAL ENCOUNTER Status: Acute Current Visit: No Qualifiers: Encounter type: initial encounter Qualified Code(s): W19.XXXA - Unspecified fall, initial encounter Problem List Initiated/Reviewed/Updated: Yes Orders Last 24hrs: Active Orders 24 hr Category Date Time Status Admission Status [Patient Status] [ADT] Routine ADT 02/11/19 17:59 Active EKG Documentation Completion [RC] STAT Care 02/11/19 18:09 Active UA W/MICROSCOPIC [URIN] Stat Lab 02/11/19 17:35 Ordered Code Status [Resuscitation Status] Stat Resus Stat 02/11/19 18:02 Ordered Assessment/Plan Comment:: Impression: S/P fall without LOC; right hip fracture, 02/11/19. Acute subdural hematoma, left parietal region on 01/16/19 Minimally displaced fracture, left greater trochanteric proximal femur, 01/16/19. Nonsurgical treatment History of CVAs CT of head without bleed, 02/11/19. Chronic HTN Subdural hematoma, traumatic BPH Plan: Daily Labs Home meds Ortho surgery, 02/12/19 Consult CM/PT/OT.
[2019-02-11] MEDS ORDERED: HYDROmorphone 0.5 MG/0.5 ML Syringe IVPUSH PRN (20:06)
[2019-02-11] MEDS ORDERED: hydrALAZINE 20 MG/ML SDV IVPUSH PRN (20:08)
[2019-02-11] MEDS ORDERED: Sodium Chloride 0.45% 1,000 ML IV SCH (20:45)
[2019-02-11] MEDS: Acetaminophen/HYDROcodone 325-5 MG Tab PO PRN (21:17)
[2019-02-11] MEDS: Tamsulosin 0.4 MG Cap.ER PO SCH (21:18)
[2019-02-11] MEDS: Rosuvastatin 10 MG Tab PO SCH (21:19)
[2019-02-11] MEDS: Metoprolol Tartrate 25 MG Tab PO SCH (21:20)
[2019-02-12] MEDS: HYDROmorphone 1 MG/ML Syringe IVPUSH PRN ×3 (02:29→16:44)
[2019-02-12] MEDS: Metoprolol Tartrate 25 MG Tab PO SCH ×3 (06:18→20:27)
--- NOTE | 2019-02-12 06:55 | CR ---
Chest: Frontal view of the chest was obtained. Comparison: Prior chest x-ray of 09/24/18. Heart size and mediastinum are within normal limits for portable technique. Lungs are clear with no acute parenchymal change. Surgical clips seen within the upper abdomen. Bony structures are osteopenic but grossly intact. Impression: 1. Nothing acute is seen on frontal chest x-ray. Diagnostic code #1 I agree with preliminary report from [facility], finalized on 02/12/19, 7:28 AM Central Time
[2019-02-12] MEDS ORDERED: Midazolam 1 MG/ML 2 ML SDV ONE (07:01)
[2019-02-12] MEDS ORDERED: Ketamine 500 mg/10 ML MDV ONE (07:01)
[2019-02-12] MEDS ORDERED: fentaNYL 100 MCG/2 ML SDV ONE (07:01)
[2019-02-12] MEDS ORDERED: Propofol 200 MG/20 ML SDV ONE (07:01)
[2019-02-12] MEDS ORDERED: Lidocaine 1% 4 ML ONE (07:02)
[2019-02-12] MEDS ORDERED: Bupivacaine 0.75% 30 ML SDV ONE (07:07)
[2019-02-12] MEDS ORDERED: Clindamycin Phosphate 900 MG in Sodium Chloride 0.9% 100 ML IV ONE (07:45)
[2019-02-12] MEDS ORDERED: ePHEDrine/Normal Saline 25 MG/5 ML Syringe ONE (08:18)
[2019-02-12] MEDS ORDERED: Phenylephrine/Normal Saline 100 MCG/ML 10 ML Syringe ONE (08:18)
[2019-02-12] MEDS ORDERED: Dexamethasone 4 MG/ML SDV ONE (08:19)
[2019-02-12] MEDS ORDERED: Ondansetron 4 MG/2 ML SDV ONE (08:19)
[2019-02-12] MEDS: Bupivacaine 0.25% 30 ML SDV ONE ×2 (08:39→08:55)
[2019-02-12] MEDS ORDERED: fentaNYL 100 MCG/2 ML SDV IVPUSH PRN (08:53)
[2019-02-12] MEDS ORDERED: HYDROmorphone 0.5 MG/0.5 ML Syringe IVPUSH PRN ×2 (08:53→20:16)
--- NOTE | 2019-02-12 09:19 | CR ---
Right hip: Eight fluoroscopic spot views were obtained of the right hip utilizing C-arm device. Comparison: Previous right hip study of 02/11/19. Intramedullary kevyn has been placed as well as a compression screw affixing previous fracture. Final films show what appears to be anatomic alignment of the fracture. Fluoroscopy time is given as 103.5 seconds. Impression: 1. Procedural study as noted above. Diagnostic code #2
--- NOTE | 2019-02-12 09:23 | PCM.POSTAN ---
POST ANESTHESIA ASSESSMENT - MENTAL STATUS Mental Status: Alert, Oriented - VITAL SIGNS Pulse Rate: 96 SaO2: 100 Resp Rate: 13 Blood Pressure: 107/64 Temperature: 36.8 C - RESPIRATORY Respiratory Status: Respiratory Rate WNL, Airway Patent, O2 Saturation Stable, Supplemental Oxygen - CARDIOVASCULAR CV Status: Pulse Rate WNL, Blood Pressure Stable - GASTROINTESTINAL GI Status: No Symptoms - PAIN Pain Score: 0 - POST OP HYDRATION Hydration Status: Adequate & Stable
[2019-02-12] MEDS ORDERED: Lactated Ringers 1,000 ML IV SCH (11:00)
[2019-02-12] MEDS: Acetaminophen/HYDROcodone 325-5 MG Tab PO PRN (13:11)
[2019-02-12] MEDS: Finasteride 5 MG Tab PO SCH (14:04)
[2019-02-12] MEDS: Sennosides 8.6 MG Tab PO SCH (14:05)
[2019-02-12] MEDS: Clindamycin Phosphate 900 MG in Sodium Chloride 0.9% 100 ML IV SCH ×2 (14:22→20:23)
[2019-02-12] MEDS ORDERED: Ketorolac 15 MG/ML SDV IVPUSH ONE (14:53)
--- NOTE | 2019-02-12 15:27 | PCM.PN ---
- General Info Date of Service: 02/12/19 Functional Status: Reports: Urinating - Review of Systems General: Reports: Weakness HEENT: Reports: No Symptoms Pulmonary: Reports: No Symptoms Cardiovascular: Reports: No Symptoms Gastrointestinal: Reports: No Symptoms Genitourinary: Reports: No Symptoms Musculoskeletal: Reports: Leg Pain (christ-op) Skin: Reports: No Symptoms Neurological: Reports: No Symptoms Psychiatric: Reports: No Symptoms - Patient Data Vitals - Most Recent: Last Vital Signs Temp 37.1 C 02/12/19 11:19 Pulse 96 02/12/19 11:19 Resp 16 02/12/19 11:19 BP 111/70 02/12/19 10:43 Pulse Ox 100 02/12/19 14:54 Weight - Most Recent: 79.424 kg I&O - Last 24 Hours: Intake & Output 02/12/19 02/12/19 02/12/19 06:59 14:59 22:59 Intake Total 1050 400 Output Total 225 130 Balance 825 270 Lab Results Last 24 Hours: Laboratory Results - last 24 hr 02/11/19 02/11/19 02/11/19 Range/Units 13:50 13:50 13:50 WBC 12.16 H (4.23-9.07) K/mm3 RBC 4.21 L (4.63-6.08) M/mm3 Hgb 12.7 L (13.7-17.5) gm/L Hct 39.5 L (40.1-51.0) % MCV 93.8 H (79.0-92.2) fl MCH 30.2 (25.7-32.2) pg MCHC 32.2 (32.2-35.5) g/dl RDW Std Deviation 45.8 H (35.1-43.9) fL Plt Count 205 (163-337) K/mm3 MPV 12.6 H (9.4-12.3) fl Neut % (Auto) (34.0-67.9) % Lymph % (Auto) (21.8-53.1) % [place] % (Auto) (5.3-12.2) % Eos % (Auto) (0.8-7.0) Baso % (Auto) (0.1-1.2) % Neut # (Auto) (1.78-5.38) K/mm3 Lymph # (Auto) (1.32-3.57) K/mm3 [place] # (Auto) (0.30-0.82) K/mm3 Eos # (Auto) (0.04-0.54) K/mm3 Baso # (Auto) (0.01-0.08) K/mm3 Neutrophils % (Manual) 70 H (40-60) % Band Neutrophils % 1 (0-10) % Lymphocytes % (Manual) 19 L (20-40) % Atypical Lymphs % 0 % Monocytes % (Manual) 8 (2-10) % Eosinophils % (Manual) 1 (0.8-7.0) % Basophils % (Manual) 1 (0.2-1.2) Platelet Estimate Adequate Plt Morphology Comment See note RBC Morph Comment Normal PT (9.5-12.1) SECONDS INR APTT (24-31) SECONDS Sodium 141 (136-145) mEq/L Potassium 4.0 (3.5-5.1) mEq/L Chloride 105 (98-107) mEq/L Carbon Dioxide 32 (21-32) mEq/L Anion Gap 8.0 (5-15) BUN 19 H (7-18) mg/dL Creatinine 0.9 (0.7-1.3) mg/dL Est Cr Clr Drug Dosing 60.01 mL/min Estimated GFR (MDRD) > 60 (>60) mL/min BUN/Creatinine Ratio 21.1 H (14-18) Glucose 145 H (83-115) mg/dL Calcium 8.8 (8.5-10.1) mg/dL Total Bilirubin 1.1 H (0.2-1.0) mg/dL AST 14 L (15-37) U/L ALT 19 (16-63) U/L Alkaline Phosphatase 108 (46-116) U/L Troponin I < 0.017 (0.00-0.056) ng/mL C-Reactive Protein (<1.0) mg/dL NT-Pro-B Natriuret Pep 194 (0-450) pg/mL Total Protein 6.7 (6.4-8.2) g/dl Albumin 3.5 (3.4-5.0) g/dl Globulin 3.2 gm/dL Albumin/Globulin Ratio 1.1 (1-2) Urine Color (Yellow) Urine Appearance (Clear) Urine pH (5.0-8.0) Ur Specific [place] (1.005-1.030) Urine Protein (Negative) Urine Glucose (UA) (Negative) Urine Ketones (Negative) Urine Occult Blood (Negative) Urine Nitrite (Negative) Urine Bilirubin (Negative) Urine Urobilinogen (0.2-1.0) Ur Leukocyte Esterase (Negative) Urine RBC (0-5) /hpf Urine WBC (0-5) /hpf Ur Epithelial Cells (0-5) /hpf Calcium Oxalate Crystal (NONE) Urine Bacteria (FEW) /hpf Urine Mucus (FEW) /hpf MRSA (PCR) 02/11/19 02/11/19 02/11/19 Range/Units 13:50 19:00 22:10 WBC (4.23-9.07) K/mm3 RBC (4.63-6.08) M/mm3 Hgb (13.7-17.5) gm/L Hct (40.1-51.0) % MCV (79.0-92.2) fl MCH (25.7-32.2) pg MCHC (32.2-35.5) g/dl RDW Std Deviation (35.1-43.9) fL Plt Count (163-337) K/mm3 MPV (9.4-12.3) fl Neut % (Auto) (34.0-67.9) % Lymph % (Auto) (21.8-53.1) % [place] % (Auto) (5.3-12.2) % Eos % (Auto) (0.8-7.0) Baso % (Auto) (0.1-1.2) % Neut # (Auto) (1.78-5.38) K/mm3 Lymph # (Auto) (1.32-3.57) K/mm3 [place] # (Auto) (0.30-0.82) K/mm3 Eos # (Auto) (0.04-0.54) K/mm3 Baso # (Auto) (0.01-0.08) K/mm3 Neutrophils % (Manual) (40-60) % Band Neutrophils % (0-10) % Lymphocytes % (Manual) (20-40) % Atypical Lymphs % % Monocytes % (Manual) (2-10) % Eosinophils % (Manual) (0.8-7.0) % Basophils % (Manual) (0.2-1.2) Platelet Estimate Plt Morphology Comment RBC Morph Comment PT 11.7 (9.5-12.1) SECONDS INR 1.07 APTT (24-31) SECONDS Sodium (136-145) mEq/L Potassium (3.5-5.1) mEq/L Chloride (98-107) mEq/L Carbon Dioxide (21-32) mEq/L Anion Gap (5-15) BUN (7-18) mg/dL Creatinine (0.7-1.3) mg/dL Est Cr Clr Drug Dosing mL/min Estimated GFR (MDRD) (>60) mL/min BUN/Creatinine Ratio (14-18) Glucose (83-115) mg/dL Calcium (8.5-10.1) mg/dL Total Bilirubin (0.2-1.0) mg/dL AST (15-37) U/L ALT (16-63) U/L Alkaline Phosphatase (46-116) U/L Troponin I (0.00-0.056) ng/mL C-Reactive Protein (<1.0) mg/dL NT-Pro-B Natriuret Pep (0-450) pg/mL Total Protein (6.4-8.2) g/dl Albumin (3.4-5.0) g/dl Globulin gm/dL Albumin/Globulin Ratio (1-2) Urine Color Yellow (Yellow) Urine Appearance Clear (Clear) Urine pH 5.5 (5.0-8.0) Ur Specific [place] 1.025 (1.005-1.030) Urine Protein Negative (Negative) Urine Glucose (UA) Negative (Negative) Urine Ketones Negative (Negative) Urine Occult Blood Negative (Negative) Urine Nitrite Negative (Negative) Urine Bilirubin Negative (Negative) Urine Urobilinogen 0.2 (0.2-1.0) Ur Leukocyte Esterase Negative (Negative) Urine RBC Not seen (0-5) /hpf Urine WBC 0-5 (0-5) /hpf Ur Epithelial Cells 0-5 (0-5) /hpf Calcium Oxalate Crystal Few H (NONE) Urine Bacteria Rare (FEW) /hpf Urine Mucus Not seen (FEW) /hpf MRSA (PCR) Negative 02/12/19 02/12/19 02/12/19 Range/Units 05:25 05:25 05:25 WBC 10.37 H (4.23-9.07) K/mm3 RBC 3.70 L (4.63-6.08) M/mm3 Hgb 11.3 L (13.7-17.5) gm/L Hct 34.8 L (40.1-51.0) % MCV 94.1 H (79.0-92.2) fl MCH 30.5 (25.7-32.2) pg MCHC 32.5 (32.2-35.5) g/dl RDW Std Deviation 46.8 H (35.1-43.9) fL Plt Count 154 L (163-337) K/mm3 MPV 12.8 H (9.4-12.3) fl Neut % (Auto) 59.3 (34.0-67.9) % Lymph % (Auto) 25.8 (21.8-53.1) % [place] % (Auto) 13.1 H (5.3-12.2) % Eos % (Auto) 1.2 (0.8-7.0) Baso % (Auto) 0.3 (0.1-1.2) % Neut # (Auto) 6.15 H (1.78-5.38) K/mm3 Lymph # (Auto) 2.68 (1.32-3.57) K/mm3 [place] # (Auto) 1.36 H (0.30-0.82) K/mm3 Eos # (Auto) 0.12 (0.04-0.54) K/mm3 Baso # (Auto) 0.03 (0.01-0.08) K/mm3 Neutrophils % (Manual) (40-60) % Band Neutrophils % (0-10) % Lymphocytes % (Manual) (20-40) % Atypical Lymphs % % Monocytes % (Manual) (2-10) % Eosinophils % (Manual) (0.8-7.0) % Basophils % (Manual) (0.2-1.2) Platelet Estimate Plt Morphology Comment RBC Morph Comment PT 11.9 (9.5-12.1) SECONDS INR 1.09 APTT 30 (24-31) SECONDS Sodium 141 (136-145) mEq/L Potassium 3.6 (3.5-5.1) mEq/L Chloride 104 (98-107) mEq/L Carbon Dioxide 28 (21-32) mEq/L Anion Gap 12.6 (5-15) BUN 19 H (7-18) mg/dL Creatinine 0.8 (0.7-1.3) mg/dL Est Cr Clr Drug Dosing 67.51 mL/min Estimated GFR (MDRD) > 60 (>60) mL/min BUN/Creatinine Ratio 23.8 H (14-18) Glucose 132 H (83-115) mg/dL Calcium 8.8 (8.5-10.1) mg/dL Total Bilirubin (0.2-1.0) mg/dL AST (15-37) U/L ALT (16-63) U/L Alkaline Phosphatase (46-116) U/L Troponin I (0.00-0.056) ng/mL C-Reactive Protein 2.5 H* (<1.0) mg/dL NT-Pro-B Natriuret Pep (0-450) pg/mL Total Protein (6.4-8.2) g/dl Albumin (3.4-5.0) g/dl Globulin gm/dL Albumin/Globulin Ratio (1-2) Urine Color (Yellow) Urine Appearance (Clear) Urine pH (5.0-8.0) Ur Specific [place] (1.005-1.030) Urine Protein (Negative) Urine Glucose (UA) (Negative) Urine Ketones (Negative) Urine Occult Blood (Negative) Urine Nitrite (Negative) Urine Bilirubin (Negative) Urine Urobilinogen (0.2-1.0) Ur Leukocyte Esterase (Negative) Urine RBC (0-5) /hpf Urine WBC (0-5) /hpf Ur Epithelial Cells (0-5) /hpf Calcium Oxalate Crystal (NONE) Urine Bacteria (FEW) /hpf Urine Mucus (FEW) /hpf MRSA (PCR) Med Orders - Current: Current Medications Aspirin (Ecotrin) 325 mg PO DAILY JEFF Finasteride (Proscar) 5 mg PO DAILY JEFF Last Admin: 02/12/19 14:04 Dose: Not Given Hydralazine HCl (Apresoline) 10 mg IVPUSH Q6H PRN PRN Reason: Hypertension Hydromorphone HCl (Dilaudid) 0.5 mg IVPUSH Q4H PRN PRN Reason: Pain (moderate 4-6) Last Admin: 02/12/19 06:24 Dose: 0.5 mg Lactated Ringer's (Ringers, Lactated) 1,000 mls @ 125 mls/hr IV ASDIRECTED [facility] Last Admin: 02/12/19 14:01 Dose: 125 mls/hr Clindamycin Phosphate 900 mg/ (Sodium Chloride) 106 mls @ 212 mls/hr IV Q6H [facility] Stop: 02/13/19 08:29 Last Admin: 02/12/19 14:22 Dose: 212 mls/hr Metoprolol Tartrate (Lopressor) 12.5 mg PO BID [facility] Last Admin: 02/12/19 14:04 Dose: Not Given Oxycodone/Acetaminophen (Percocet 325-5 Mg) 1 - 2 tab PO Q4H PRN PRN Reason: Pain (severe 7-10) Rosuvastatin Calcium (Crestor) 10 mg PO BEDTIME [facility] Last Admin: 02/11/19 21:19 Dose: 10 mg Senna (Senna) 8.6 mg PO DAILY [facility] Last Admin: 02/12/19 14:05 Dose: Not Given Tamsulosin HCl (Flomax) 0.4 mg PO BEDTIME [facility] Last Admin: 02/11/19 21:18 Dose: 0.4 mg Discontinued Medications Hydrocodone Bitart/Acetaminophen ([place] 325-5 Mg) 1 tab PO Q6H PRN PRN Reason: Pain (moderate 4-6) Last Admin: 02/12/19 13:11 Dose: 1 tab Bupivacaine HCl (Marcaine 0.25%) Confirm Administered Dose 30 ml .ROUTE .STK- MED ONE Stop: 02/12/19 06:29 Last Admin: 02/12/19 08:55 Dose: 20 ml Bupivacaine HCl (Sensorcaine-Mpf 0.75%) Confirm Administered Dose 30 ml .ROUTE .STK-MED ONE Stop: 02/12/19 07:08 Dexamethasone (Dexamethasone) Confirm Administered Dose 4 mg .ROUTE .STK-MED ONE Stop: 02/12/19 08:20 Ephedrine Sulfate (Ephedrine In Ns) Confirm Administered Dose 25 mg .ROUTE .STK- MED ONE Stop: 02/12/19 08:19 Fentanyl (Sublimaze) Confirm Administered Dose 100 mcg .ROUTE .STK-MED ONE Stop: 02/12/19 07:02 Fentanyl (Sublimaze) 50 mcg IVPUSH Q5M PRN PRN Reason: Pain Stop: 02/12/19 12:00 Hydromorphone HCl (Dilaudid) 0.5 mg IVPUSH ONETIME ONE Stop: 02/11/19 14:21 Last Admin: 02/11/19 14:22 Dose: 0.5 mg Hydromorphone HCl (Dilaudid) Confirm Administered Dose 0.5 mg .ROUTE .STK-MED ONE Stop: 02/11/19 14:20 Last Admin: 02/11/19 14:26 Dose: Not Given Hydromorphone HCl (Dilaudid) 0.5 mg IVPUSH NOW STA Stop: 02/11/19 14:21 Last Admin: 02/11/19 14:47 Dose: 0.5 mg Hydromorphone HCl (Dilaudid) 0.5 mg IVPUSH ONETIME STA Stop: 02/11/19 15:57 Last Admin: 02/11/19 16:00 Dose: 0.5 mg Hydromorphone HCl (Dilaudid) Confirm Administered Dose 0.5 mg .ROUTE .STK-MED ONE Stop: 02/11/19 16:00 Last Admin: 02/11/19 18:29 Dose: Not Given Hydromorphone HCl (Dilaudid) Confirm Administered Dose 0.5 mg .ROUTE .STK-MED ONE Stop: 02/11/19 18:50 Last Admin: 02/11/19 19:03 Dose: Not Given Hydromorphone HCl (Dilaudid) 0.5 mg IVPUSH ONETIME STA Stop: 02/11/19 18:46 Last Admin: 02/11/19 18:45 Dose: 0.5 mg Hydromorphone HCl (Dilaudid) 0.5 mg IVPUSH Q4H PRN PRN Reason: Pain (moderate 4-6) Hydromorphone HCl (Dilaudid) 0.5 mg IVPUSH Q15M PRN PRN Reason: severe pain Stop: 02/12/19 12:00 Sodium Chloride (Sodium Chloride 0.45%) 1,000 mls @ 75 mls/hr IV ASDIRECTED JEFF Stop: 02/12/19 02:45 Last Admin: 02/11/19 22:32 Dose: 75 mls/hr Lidocaine HCl (Xylocaine-Mpf 1%) Confirm Administered Dose 4 mls @ as directed .ROUTE .STK-MED ONE Stop: 02/12/19 07:03 Lidocaine HCl (Xylocaine-Mpf 1%) Confirm Administered Dose 5 mls @ as directed .ROUTE .STK-MED ONE Stop: 02/12/19 07:08 Clindamycin Phosphate 900 mg/ (Sodium Chloride) 106 mls @ 212 mls/hr IV ONETIME ONE Stop: 02/12/19 08:14 Ketamine HCl (Ketalar) Confirm Administered Dose 500 mg .ROUTE .STK-MED ONE Stop: 02/12/19 07:02 Ketorolac Tromethamine (Toradol) 15 mg IVPUSH ONETIME ONE Stop: 02/12/19 14:54 Last Admin: 02/12/19 15:10 Dose: 15 mg Midazolam HCl (Versed 1 Mg/Ml) Confirm Administered Dose 2 mg .ROUTE .STK-MED ONE Stop: 02/12/19 07:02 Ondansetron HCl (Zofran) Confirm Administered Dose 4 mg .ROUTE .STK-MED ONE Stop: 02/12/19 08:20 Phenylephrine HCl (Phenylephrine In Ns 100 Mcg/Ml) Confirm Administered Dose 1 mg .ROUTE .STK-MED ONE Stop: 02/12/19 08:19 Propofol (Diprivan 20 Ml) Confirm Administered Dose 600 mg .ROUTE .STK-MED ONE Stop: 02/12/19 07:02 - Exam Quality Assessment: Supplemental Oxygen, DVT Prophylaxis General: Alert, Oriented, Cooperative, No Acute Distress HEENT: Pupils Equal, Pupils Reactive, EOMI Neck: Trachea Midline, No JVD Lungs: Normal Respiratory Effort Cardiovascular: Regular Rate GI/Abdominal Exam: Normal Bowel Sounds, Soft, Non-Tender, No Organomegaly, No Distention (Male) Exam: Deferred Back Exam: Normal Inspection Extremities: Normal Inspection, Non-Tender, Normal Capillary Refill, Leg Pain ( right) Skin: Warm Neurological: No New Focal Deficit Psy/Mental Status: Alert - Problem List & Annotations (1) Hypertension SNOMED Code(s): 80510953 Code(s): I10 - ESSENTIAL (PRIMARY) HYPERTENSION Status: Acute Current Visit: Yes (2) Intertrochanteric fracture, hip SNOMED Code(s): 878013843 Code(s): S72.143A - DISPLACED INTERTROCHANTERIC FRACTURE OF UNSP FEMUR, INIT Status: Acute Current Visit: Yes (3) Bilateral subdural hematomas SNOMED Code(s): 81535946 Code(s): S06.5X9A - TRAUM SUBDR HEM W LOC OF UNSP DURATION, INIT Status: Acute Current Visit: No (4) 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 SNOMED Code(s): 89812530 Code(s): I67.2 - CEREBRAL ATHEROSCLEROSIS; Z86.73 - PRSNL HX OF TIA (TIA), AND CEREB INFRC W/O RESID DEFICITS Status: Acute Current Visit: No (5) Cervical radiculopathy SNOMED Code(s): 84339379 Code(s): M54.12 - RADICULOPATHY, CERVICAL REGION Status: Acute Current Visit: No (6) Congestive heart failure SNOMED Code(s): 27603559 Code(s): I50.9 - HEART FAILURE, UNSPECIFIED Status: Acute Current Visit: No Qualifiers: Heart failure type: unspecified Heart failure chronicity: acute on chronic Qualified Code(s): I50.9 - Heart failure, unspecified (7) Fall SNOMED Code(s): 3095862, 614067411 Code(s): W19.XXXA - UNSPECIFIED FALL, INITIAL ENCOUNTER Status: Acute Current Visit: No Qualifiers: Encounter type: initial encounter Qualified Code(s): W19.XXXA - Unspecified fall, initial encounter - Problem List Review Problem List Initiated/Reviewed/Updated: Yes - My Orders Last 24 Hours: My Active Orders 02/11/19 20:08 hydrALAZINE [Apresoline] 10 mg IVPUSH Q6H PRN 02/11/19 21:00 Metoprolol Tartrate [Lopressor] 12.5 mg PO BID Rosuvastatin [Crestor] 10 mg PO BEDTIME Tamsulosin [Flomax] 0.4 mg PO BEDTIME 02/11/19 21:09 Consult to Physician [CONS] Routine 02/12/19 02:30 HYDROmorphone [Dilaudid] 0.5 mg IVPUSH Q4H PRN 02/12/19 04:56 Urinary Catheter Assessment [RC] 04,10,16,22 02/12/19 09:00 Finasteride [Proscar] 5 mg PO DAILY Sennosides [Senna] 8.6 mg PO DAILY 02/12/19 11:00 Consult to Occupational Therapy [OT Evaluation and Treatment] [CONS] Routine Consult to Physical Therapy [PT Evaluation and Treatment] [CONS] Routine Lactated Ringers [Ringers, Lactated] 1,000 ml IV ASDIRECTED 02/12/19 11:39 Patient Status [ADT] Routine 02/12/19 11:47 Antiembolic Devices [RC] PER UNIT ROUTINE Antiembolic Hose [OM.PC] Routine 02/12/19 13:00 Consult to Case Management/Health And Human Performance Professor [CONS] Routine 02/12/19 Dinner Heart Healthy Diet [DIET] 02/13/19 05:00 BASIC METABOLIC PANEL,BMP [CHEM] DAILY CBC WITH AUTO DIFF [HEME] DAILY CRP [C-REACTIVE PROTEIN] [CHEM] DAILY MAGNESIUM [CHEM] DAILY PTT,PARTIAL THROMBOPLSTIN TIME [COAG] DAILY 02/14/19 05:00 BASIC METABOLIC PANEL,BMP [CHEM] DAILY CBC WITH AUTO DIFF [HEME] DAILY CRP [C-REACTIVE PROTEIN] [CHEM] DAILY MAGNESIUM [CHEM] DAILY PTT,PARTIAL THROMBOPLSTIN TIME [COAG] DAILY 02/15/19 05:00 BASIC METABOLIC PANEL,BMP [CHEM] DAILY CBC WITH AUTO DIFF [HEME] DAILY CRP [C-REACTIVE PROTEIN] [CHEM] DAILY MAGNESIUM [CHEM] DAILY PTT,PARTIAL THROMBOPLSTIN TIME [COAG] DAILY 02/16/19 05:00 MAGNESIUM [CHEM] DAILY - Plan Plan:: Impression: --S/P fall without LOC; right hip fracture, 02/11/19. Christ-op, POD 0-->Cephalomedullary nailing of the right hip --Acute subdural hematoma, left parietal region on 01/16/19 Minimally displaced fracture, left greater trochanteric proximal femur, 01/16/19. Nonsurgical treatment for left LE. --History of CVAs CT of head without bleed, 02/11/19. Chronic HTN Subdural hematoma, traumatic BPH Plan: Daily Labs Pain mgt Cautious anticoagulation with history of subdural hematoma; starting ASA 325 mg daily; repeat CT of head as OP on 02/22/19. Home meds Ortho surgery, 02/12/19 Consult CM/PT/OT.
[2019-02-12] MEDS: Acetaminophen/oxyCODONE 325-5 MG Tab PO PRN (20:27)
[2019-02-12] MEDS: Tamsulosin 0.4 MG Cap.ER PO SCH (20:27)
[2019-02-12] MEDS: Rosuvastatin 10 MG Tab PO SCH (20:27)
[2019-02-12] MEDS ORDERED: Metoprolol Tartrate 5 MG/5 ML SDV IVPUSH PRN (20:56)
[2019-02-12] MEDS: levETIRAcetam 500 MG Tab PO SCH (21:49)
[2019-02-12] MEDS: metFORMIN 500 MG Tab PO SCH (21:49)
[2019-02-12] MEDS: Timolol Maleate 0.5% Ophth Soln 5 ML Bottle EYEBOTH SCH (21:50)
[2019-02-13] MEDS: Clindamycin Phosphate 900 MG in Sodium Chloride 0.9% 100 ML IV SCH ×2 (01:19→09:27)
[2019-02-13] MEDS: Acetaminophen/oxyCODONE 325-5 MG Tab PO PRN (04:56)
[2019-02-13] MEDS: metFORMIN 500 MG Tab PO SCH ×2 (06:19→16:32)
--- NOTE | 2019-02-13 08:30 | PCM.SURGPN ---
- General Info Date of Service: 02/13/19 POD#: 1 Functional Status: Reports: Pain Controlled, Tolerating Diet - Review of Systems Musculoskeletal: Reports: Other (The pt states his pain is controlled this morning. ) - Patient Data Vitals - Most Recent: Last Vital Signs Temp 98.1 F 02/13/19 02:15 Pulse 94 02/13/19 02:15 Resp 16 02/13/19 02:15 BP 94/57 L 02/13/19 02:15 Pulse Ox 94 L 02/13/19 02:15 Weight - Most Recent: 183 lb 4 oz I&O - Last 24 Hours: Intake & Output 02/12/19 02/13/19 02/13/19 22:59 06:59 14:59 Intake Total 1390 900 Output Total 330 360 Balance 1060 540 Lab Results Last 24 Hrs: Laboratory Results - last 24 hr 02/12/19 02/13/19 02/13/19 Range/Units 21:48 05:30 05:30 WBC 10.95 H (4.23-9.07) K/mm3 RBC 3.26 L (4.63-6.08) M/mm3 Hgb 9.9 L (13.7-17.5) gm/L Hct 30.8 L (40.1-51.0) % MCV 94.5 H (79.0-92.2) fl MCH 30.4 (25.7-32.2) pg MCHC 32.1 L (32.2-35.5) g/dl RDW Std Deviation 45.7 H (35.1-43.9) fL Plt Count 103 L (163-337) K/mm3 MPV 13.2 H (9.4-12.3) fl Neut % (Auto) 68.2 H (34.0-67.9) % Lymph % (Auto) 17.2 L (21.8-53.1) % Callahan % (Auto) 12.2 (5.3-12.2) % Eos % (Auto) 1.9 (0.8-7.0) Baso % (Auto) 0.2 (0.1-1.2) % Neut # (Auto) 7.47 H (1.78-5.38) K/mm3 Lymph # (Auto) 1.88 (1.32-3.57) K/mm3 Callahan # (Auto) 1.34 H (0.30-0.82) K/mm3 Eos # (Auto) 0.21 (0.04-0.54) K/mm3 Baso # (Auto) 0.02 (0.01-0.08) K/mm3 APTT (24-31) SECONDS Sodium 140 (136-145) mEq/L Potassium 4.0 (3.5-5.1) mEq/L Chloride 104 (98-107) mEq/L Carbon Dioxide 29 (21-32) mEq/L Anion Gap 11.0 (5-15) BUN 17 (7-18) mg/dL Creatinine 0.9 (0.7-1.3) mg/dL Est Cr Clr Drug Dosing 60.01 mL/min Estimated GFR (MDRD) > 60 (>60) mL/min BUN/Creatinine Ratio 18.9 H (14-18) Glucose 121 H (83-115) mg/dL POC Glucose 205 H (83-110) mg/dL Calcium 8.2 L (8.5-10.1) mg/dL Magnesium 1.5 L (1.8-2.4) mg/dl C-Reactive Protein 11.2 H* (<1.0) mg/dL 02/13/19 02/13/19 Range/Units 05:30 06:16 WBC (4.23-9.07) K/mm3 RBC (4.63-6.08) M/mm3 Hgb (13.7-17.5) gm/L Hct (40.1-51.0) % MCV (79.0-92.2) fl MCH (25.7-32.2) pg MCHC (32.2-35.5) g/dl RDW Std Deviation (35.1-43.9) fL Plt Count (163-337) K/mm3 MPV (9.4-12.3) fl Neut % (Auto) (34.0-67.9) % Lymph % (Auto) (21.8-53.1) % Callahan % (Auto) (5.3-12.2) % Eos % (Auto) (0.8-7.0) Baso % (Auto) (0.1-1.2) % Neut # (Auto) (1.78-5.38) K/mm3 Lymph # (Auto) (1.32-3.57) K/mm3 Callahan # (Auto) (0.30-0.82) K/mm3 Eos # (Auto) (0.04-0.54) K/mm3 Baso # (Auto) (0.01-0.08) K/mm3 APTT 32 H (24-31) SECONDS Sodium (136-145) mEq/L Potassium (3.5-5.1) mEq/L Chloride (98-107) mEq/L Carbon Dioxide (21-32) mEq/L Anion Gap (5-15) BUN (7-18) mg/dL Creatinine (0.7-1.3) mg/dL Est Cr Clr Drug Dosing mL/min Estimated GFR (MDRD) (>60) mL/min BUN/Creatinine Ratio (14-18) Glucose (83-115) mg/dL POC Glucose 149 H (83-110) mg/dL Calcium (8.5-10.1) mg/dL Magnesium (1.8-2.4) mg/dl C-Reactive Protein (<1.0) mg/dL Med Orders - Current: Current Medications Acetaminophen (Tylenol) 650 mg PO Q6H PRN PRN Reason: Pain/Fever Hydrocodone Bitart/Acetaminophen ([place] 325-5 Mg) 1 tab PO Q4H PRN PRN Reason: Pain (moderate 4-6) Aspirin (Ecotrin) [address] [facility] Finasteride (Proscar) [address] [facility] Last Admin: 02/12/19 14:04 Dose: Not Given Hydralazine HCl (Apresoline) 10 mg IVPUSH Q6H PRN PRN Reason: Hypertension Hydromorphone HCl (Dilaudid) 0.5 mg IVPUSH Q4H PRN PRN Reason: Pain (moderate 4-6) Last Admin: 02/12/19 16:44 Dose: 0.5 mg Hydromorphone HCl (Dilaudid) 0.5 mg IVPUSH Q6H PRN PRN Reason: Pain (severe 7-10) Clindamycin Phosphate 900 mg/ (Sodium Chloride) 106 mls @ 212 mls/hr IV Q6H [facility] Stop: 02/13/19 08:29 Last Admin: 02/13/19 01:19 Dose: 212 mls/hr Levetiracetam (Keppra) [address] [facility] Last Admin: 02/12/19 21:49 Dose: 500 mg Metformin HCl (Glucophage) [address] [facility] Last Admin: 02/13/19 06:19 Dose: 250 mg Metoprolol Tartrate (Lopressor) 12.[address] [facility] Last Admin: 02/12/19 20:27 Dose: 12.5 mg Metoprolol Tartrate (Lopressor) 5 mg IVPUSH Q6H PRN PRN Reason: HR>110 Oxycodone/Acetaminophen (Percocet 325-5 Mg) 1 - 2 tab PO Q4H PRN PRN Reason: Pain (severe 7-10) Last Admin: 02/13/19 04:56 Dose: 2 tab Rosuvastatin Calcium (Crestor) [address] [facility] Last Admin: 02/12/19 20:27 Dose: 10 mg Senna (Senna) 8.[address] [facility] Last Admin: 02/12/19 14:05 Dose: Not Given Sertraline HCl (Zoloft) [address] [facility] Tamsulosin HCl (Flomax) 0.[address] [facility] Last Admin: 02/12/19 20:27 Dose: 0.4 mg Timolol Maleate (Timoptic 0.5% Ophth Soln) [address] [facility] Last Admin: 02/12/19 21:50 Dose: 1 drop Discontinued Medications Hydrocodone Bitart/Acetaminophen ([place] 325-5 Mg) 1 tab PO Q6H PRN PRN Reason: Pain (moderate 4-6) Last Admin: 02/12/19 13:11 Dose: 1 tab Bupivacaine HCl (Marcaine 0.25%) Confirm Administered Dose 30 ml .ROUTE .STK- MED ONE Stop: 02/12/19 06:29 Last Admin: 02/12/19 08:55 Dose: 20 ml Bupivacaine HCl (Sensorcaine-Mpf 0.75%) Confirm Administered Dose 30 ml .ROUTE .STK-MED ONE Stop: 02/12/19 07:08 Dexamethasone (Dexamethasone) Confirm Administered Dose 4 mg .ROUTE .STK-MED ONE Stop: 02/12/19 08:20 Ephedrine Sulfate (Ephedrine In Ns) Confirm Administered Dose 25 mg .ROUTE .STK- MED ONE Stop: 02/12/19 08:19 Fentanyl (Sublimaze) Confirm Administered Dose 100 mcg .ROUTE .STK-MED ONE Stop: 02/12/19 07:02 Fentanyl (Sublimaze) 50 mcg IVPUSH Q5M PRN PRN Reason: Pain Stop: 02/12/19 12:00 Hydromorphone HCl (Dilaudid) 0.5 mg IVPUSH ONETIME ONE Stop: 02/11/19 14:21 Last Admin: 02/11/19 14:22 Dose: 0.5 mg Hydromorphone HCl (Dilaudid) Confirm Administered Dose 0.5 mg .ROUTE .STK-MED ONE Stop: 02/11/19 14:20 Last Admin: 02/11/19 14:26 Dose: Not Given Hydromorphone HCl (Dilaudid) 0.5 mg IVPUSH NOW STA Stop: 02/11/19 14:21 Last Admin: 02/11/19 14:47 Dose: 0.5 mg Hydromorphone HCl (Dilaudid) 0.5 mg IVPUSH ONETIME STA Stop: 02/11/19 15:57 Last Admin: 02/11/19 16:00 Dose: 0.5 mg Hydromorphone HCl (Dilaudid) Confirm Administered Dose 0.5 mg .ROUTE .STK-MED ONE Stop: 02/11/19 16:00 Last Admin: 02/11/19 18:29 Dose: Not Given Hydromorphone HCl (Dilaudid) Confirm Administered Dose 0.5 mg .ROUTE .STK-MED ONE Stop: 02/11/19 18:50 Last Admin: 02/11/19 19:03 Dose: Not Given Hydromorphone HCl (Dilaudid) 0.5 mg IVPUSH ONETIME STA Stop: 02/11/19 18:46 Last Admin: 02/11/19 18:45 Dose: 0.5 mg Hydromorphone HCl (Dilaudid) 0.5 mg IVPUSH Q4H PRN PRN Reason: Pain (moderate 4-6) Hydromorphone HCl (Dilaudid) 0.5 mg IVPUSH Q15M PRN PRN Reason: severe pain Stop: 02/12/19 12:00 Sodium Chloride (Sodium Chloride 0.45%) 1,000 mls @ 75 mls/hr IV ASDIRECTED [facility] Stop: 02/12/19 02:45 Last Admin: 02/11/19 22:32 Dose: 75 mls/hr Lidocaine HCl (Xylocaine-Mpf 1%) Confirm Administered Dose 4 mls @ as directed .ROUTE .STK-MED ONE Stop: 02/12/19 07:03 Lidocaine HCl (Xylocaine-Mpf 1%) Confirm Administered Dose 5 mls @ as directed .ROUTE .STK-MED ONE Stop: 02/12/19 07:08 Clindamycin Phosphate 900 mg/ (Sodium Chloride) 106 mls @ 212 mls/hr IV ONETIME ONE Stop: 02/12/19 08:14 Last Admin: 02/12/19 17:58 Dose: Not Given Lactated Ringer's (Ringers, Lactated) 1,000 mls @ 125 mls/hr IV ASDIRECTED [facility] Last Admin: 02/12/19 14:01 Dose: 125 mls/hr Ketamine HCl (Ketalar) Confirm Administered Dose 500 mg .ROUTE .STK-MED ONE Stop: 02/12/19 07:02 Ketorolac Tromethamine (Toradol) 15 mg IVPUSH ONETIME ONE Stop: 02/12/19 14:54 Last Admin: 02/12/19 15:10 Dose: 15 mg Midazolam HCl (Versed 1 Mg/Ml) Confirm Administered Dose 2 mg .ROUTE .STK-MED ONE Stop: 02/12/19 07:02 Ondansetron HCl (Zofran) Confirm Administered Dose 4 mg .ROUTE .STK-MED ONE Stop: 02/12/19 08:20 Phenylephrine HCl (Phenylephrine In Ns 100 Mcg/Ml) Confirm Administered Dose 1 mg .ROUTE .STK-MED ONE Stop: 02/12/19 08:19 Propofol (Diprivan 20 Ml) Confirm Administered Dose 600 mg .ROUTE .STK-MED ONE Stop: 02/12/19 07:02 - Exam Wound/Incisions: Dressing Dry and Intact General: Alert, Cooperative, No Acute Distress Lungs: Normal Respiratory Effort Extremities: Other (NVS intact for BLE. Luis Enrique's negative for BLE. Right thigh soft.) - Problem List Review Problem List Initiated/Reviewed/Updated: Yes - My Orders Last 24 Hours: Active Orders 24 hr Category Date Time Status Patient Status [ADT] Routine ADT 02/12/19 11:39 Active Accu Check [Blood Glucose Check, Bedside] [RC] BIDAC Care 02/12/19 20:19 Active Antiembolic Devices [RC] BID Care 02/12/19 11:47 Active EKG Documentation Completion [RC] ASDIRECTED Care 02/12/19 16:11 Active Notify Provider [RC] ASDIRECTED Care 02/12/19 08:53 Active Oxygen Therapy [RC] ASDIRECTED Care 02/12/19 08:52 Active Pulse Oximetry [RC] ASDIRECTED Care 02/12/19 08:53 Active Telemetry Monitoring [Cardiac Monitoring] [RC] . Care 02/12/19 10:50 Active DIRECTED Vital Signs [RC] Q15M Care 02/12/19 08:52 Inactive Consult to Case Management/[facility] [CONS] Cons 02/12/19 13:00 Active Routine Consult to Occupational Therapy [OT Evaluation and Cons 02/12/19 11:00 Active Treatment] [CONS] Routine Consult to Physical Therapy [PT Evaluation and Cons 02/12/19 11:00 Active Treatment] [CONS] Routine Heart Healthy Diet [DIET] Diet 02/12/19 Dinner Active BASIC METABOLIC PANEL,BMP [CHEM] DAILY Lab 02/14/19 05:00 Ordered BASIC METABOLIC PANEL,BMP [CHEM] DAILY Lab 02/15/19 05:00 Ordered CBC WITH AUTO DIFF [HEME] DAILY Lab 02/14/19 05:00 Ordered CBC WITH AUTO DIFF [HEME] DAILY Lab 02/15/19 05:00 Ordered CRP [C-REACTIVE PROTEIN] [CHEM] DAILY Lab 02/14/19 05:00 Ordered CRP [C-REACTIVE PROTEIN] [CHEM] DAILY Lab 02/15/19 05:00 Ordered MAGNESIUM [CHEM] DAILY Lab 02/14/19 05:00 Ordered MAGNESIUM [CHEM] DAILY Lab 02/15/19 05:00 Ordered MAGNESIUM [CHEM] DAILY Lab 02/16/19 05:00 Ordered PTT,PARTIAL THROMBOPLSTIN TIME [COAG] DAILY Lab 02/14/19 05:00 Ordered PTT,PARTIAL THROMBOPLSTIN TIME [COAG] DAILY Lab 02/15/19 05:00 Ordered Acetaminophen [Tylenol] Med 02/12/19 20:17 Active 650 mg PO Q6H PRN Acetaminophen/HYDROcodone [[place] 325-5 MG] Med 02/12/19 20:16 Active 1 tab PO Q4H PRN Acetaminophen/oxyCODONE [Percocet 325-5 MG] Med 02/12/19 14:54 Active 1 - 2 tab PO Q4H PRN Aspirin [Ecotrin] Med 02/13/19 09:00 Active 325 mg PO BID Clindamycin Phosphate [Cleocin] 900 mg Med 02/12/19 14:00 Active Sodium Chloride 0.9% [Normal Saline] 100 ml IV Q6H Finasteride [Proscar] Med 02/12/19 09:00 Active 5 mg PO DAILY HYDROmorphone [Dilaudid] Med 02/12/19 20:16 Active 0.5 mg IVPUSH Q6H PRN Metoprolol Tartrate [Lopressor] Med 02/12/19 20:56 Active 5 mg IVPUSH Q6H PRN Sennosides [Senna] Med 02/12/19 09:00 Active 8.6 mg PO DAILY Sertraline [Zoloft] Med 02/13/19 09:00 Active 25 mg PO DAILY Timolol Maleate [Timoptic 0.5% Ophth Soln] Med 02/12/19 20:15 Active 0 ml EYEBOTH DAILY levETIRAcetam [Keppra] Med 02/12/19 21:00 Active 500 mg PO BID metFORMIN [Glucophage] Med 02/12/19 20:15 Active 250 mg PO BIDMEALS Antiembolic Hose [OM.PC] Routine Oth 02/12/19 11:47 Ordered SCD [Sequential Compression Device] [OM.PC] Routine Oth 02/12/19 11:20 Ordered Weight bearing status [OM.PC] Routine Oth 02/12/19 11:13 Ordered EKG 12 Lead [EK] Stat Ther 02/12/19 16:10 Ordered Medication Orders Acetaminophen (Tylenol) 650 mg PO Q6H PRN PRN Reason: Pain/Fever Hydrocodone Bitart/Acetaminophen ([place] 325-5 Mg) 1 tab PO Q4H PRN PRN Reason: Pain (moderate 4-6) Aspirin (Ecotrin) 325 mg PO BID [facility] Finasteride (Proscar) 5 mg PO DAILY [facility] Last Admin: 02/12/19 14:04 Dose: Hydralazine HCl (Apresoline) 10 mg IVPUSH Q6H PRN PRN Reason: Hypertension Hydromorphone HCl (Dilaudid) 0.5 mg IVPUSH Q4H PRN PRN Reason: Pain (moderate 4-6) Last Admin: 02/12/19 16:44 Dose: 0.5 mg Admin: 02/12/19 06:24 Dose: 0.5 mg Admin: 02/12/19 02:29 Dose: 0.5 mg Hydromorphone HCl (Dilaudid) 0.5 mg IVPUSH Q6H PRN PRN Reason: Pain (severe 7-10) Clindamycin Phosphate 900 mg/ (Sodium Chloride) 106 mls @ 212 mls/hr IV Q6H [facility] Stop: 02/13/19 08:29 Last Admin: 02/13/19 01:19 Dose: 212 mls/hr Infusion: 02/12/19 20:53 Dose: 212 mls/hr Admin: 02/12/19 20:23 Dose: 212 mls/hr Infusion: 02/12/19 14:52 Dose: 212 mls/hr Admin: 02/12/19 14:22 Dose: 212 mls/hr Levetiracetam (Keppra) [address] [facility] Last Admin: 02/12/19 21:49 Dose: 500 mg [facility] Last Admin: 02/13/19 06:19 Dose: 250 mg Admin: 02/12/19 21:49 Dose: 250 mg Metoprolol Tartrate (Lopressor) 12.[address] [facility] Last Admin: 02/12/19 20:27 Dose: 12.5 mg Admin: 02/12/19 14:04 Dose: Not Given Admin: 02/12/19 06:18 Dose: 12.5 mg Admin: 02/11/19 21:20 Dose: 12.5 mg Metoprolol Tartrate (Lopressor) 5 mg IVPUSH Q6H PRN PRN Reason: HR>110 Oxycodone/Acetaminophen (Percocet 325-5 Mg) 1 - 2 tab PO Q4H PRN PRN Reason: Pain (severe 7-10) Last Admin: 02/13/19 04:56 Dose: 2 tab Admin: 02/12/19 20:27 Dose: 2 tab Rosuvastatin Calcium (Crestor) [address] [facility] Last Admin: 02/12/19 20:27 Dose: 10 mg Admin: 02/11/19 21:19 Dose: 10 mg Senna (Senna) 8.[address] [facility] Last Admin: 02/12/19 14:05 Dose: Sertraline HCl (Zoloft) [address] [facility] Tamsulosin HCl (Flomax) 0.[address] [facility] Last Admin: 02/12/19 20:27 Dose: 0.4 mg Admin: 02/11/19 21:18 Dose: 0.4 mg Timolol Maleate (Timoptic 0.5% Ophth Soln) [address] [facility] Last Admin: 02/12/19 21:50 Dose: 1 drop - Assessment Assessment (Free Text/Narrative):: POD#1 - right gamma nail insertion - Plan Plan (Free Text/Narrative):: 1. 325mg ASA PO BID for VTE prophylaxis. Hospitalist agreeable to initiation of ASA. Will add Pepcid BID. 2. 50% weight bearing RLE. 3. Discharge planning for home vs. NH for continued rehabilitation. The pt's case was discussed with Dr. Bray.
--- NOTE | 2019-02-13 08:45 | PCM48HPAN ---
Post Anesthesia Note - EVALUATION WITHIN 48HRS OF ANESTHETIC Vital Signs in Normal Range: Yes Patient Participated in Evaluation: Yes Respiratory Function Stable: Yes Airway Patent: Yes Cardiovascular Function Stable: Yes Hydration Status Stable: Yes Pain Control Satisfactory: Yes Nausea and Vomiting Control Satisfactory: Yes Mental Status Recovered: Yes - COMMENTS/OBSERVATIONS Free Text/Narrative:: Tate was up ambulating last evening. He has no pain while resting. Reports it was painful to get up last evening. No complications noted. No further questions at this time.
[2019-02-13] MEDS ORDERED: Aspirin 325 MG Tab.EC PO SCH (09:00)
[2019-02-13] MEDS: Acetaminophen/HYDROcodone 325-5 MG Tab PO PRN ×2 (09:29→22:36)
[2019-02-13] MEDS: Timolol Maleate 0.5% Ophth Soln 5 ML Bottle EYEBOTH SCH (09:32)
[2019-02-13] MEDS: Sennosides 8.6 MG Tab PO SCH (09:46)
[2019-02-13] MEDS: Finasteride 5 MG Tab PO SCH (09:47)
[2019-02-13] MEDS: Aspirin 325 MG Tab.EC PO SCH ×2 (09:49→21:57)
[2019-02-13] MEDS: Famotidine 20 MG Tab PO SCH ×2 (09:50→21:57)
[2019-02-13] MEDS: levETIRAcetam 500 MG Tab PO SCH ×2 (09:51→21:57)
[2019-02-13] MEDS: Sertraline 25 MG Tab PO SCH (10:06)
[2019-02-13] MEDS ORDERED: Sodium Chloride 0.9% 1,000 ML IV SCH (10:45)
[2019-02-13] MEDS ORDERED: Sodium Chloride 0.9% 250 ML IV ONE (10:45)
[2019-02-13] MEDS: Metoprolol Tartrate 25 MG Tab PO SCH ×2 (10:54→21:57)
[2019-02-13] MEDS ORDERED: 50% Dextrose in Water 50 ML Syringe IVPUSH PRN (12:33)
--- NOTE | 2019-02-13 12:35 | PCM.PN ---
- General Info Date of Service: 02/13/19 Admission Dx/Problem (Free Text): Admission Diagnosis/Problem Admission Diagnosis/Problem Intertrochanteric fracture of right femur Functional Status: Reports: Pain Controlled, Tolerating Diet, Urinating, Incentive Spirometry. Denies: Ambulating (dmitri lift due to weakness ), New Symptoms - Review of Systems General: Reports: Weakness, Fatigue, Malaise. Denies: Fever HEENT: Reports: No Symptoms. Denies: Headaches, Sore Throat Pulmonary: Reports: No Symptoms. Denies: Shortness of Breath, Cough, Sputum Cardiovascular: Reports: No Symptoms. Denies: Chest Pain, Palpitations, Dyspnea on Exertion, Edema Gastrointestinal: Reports: No Symptoms. Denies: Abdominal Pain, Constipation, Diarrhea, Nausea, Vomiting Genitourinary: Reports: No Symptoms. Denies: Pain Musculoskeletal: Reports: Leg Pain Skin: Reports: No Symptoms. Denies: Cyanosis Neurological: Reports: Confusion, Difficulty Walking, Weakness, Gait Disturbance. Denies: Tremors, Trouble Speaking Psychiatric: Reports: No Symptoms - Patient Data Vitals - Most Recent: Last Vital Signs Temp 98.1 F 02/13/19 02:15 Pulse 103 H 02/13/19 10:54 Resp 16 02/13/19 02:15 BP 91/48 L 02/13/19 10:54 Pulse Ox 94 L 02/13/19 02:15 Weight - Most Recent: 183 lb 4 oz I&O - Last 24 Hours: Intake & Output 02/12/19 02/13/19 02/13/19 22:59 06:59 14:59 Intake Total 1390 900 160 Output Total 330 360 Balance 1060 540 160 Lab Results Last 24 Hours: Laboratory Results - last 24 hr 02/12/19 02/13/19 02/13/19 Range/Units 21:48 05:30 05:30 WBC 10.95 H (4.23-9.07) K/mm3 RBC 3.26 L (4.63-6.08) M/mm3 Hgb 9.9 L (13.7-17.5) gm/L Hct 30.8 L (40.1-51.0) % MCV 94.5 H (79.0-92.2) fl MCH 30.4 (25.7-32.2) pg MCHC 32.1 L (32.2-35.5) g/dl RDW Std Deviation 45.7 H (35.1-43.9) fL Plt Count 103 L (163-337) K/mm3 MPV 13.2 H (9.4-12.3) fl Neut % (Auto) 68.2 H (34.0-67.9) % Lymph % (Auto) 17.2 L (21.8-53.1) % [place] % (Auto) 12.2 (5.3-12.2) % Eos % (Auto) 1.9 (0.8-7.0) Baso % (Auto) 0.2 (0.1-1.2) % Neut # (Auto) 7.47 H (1.78-5.38) K/mm3 Lymph # (Auto) 1.88 (1.32-3.57) K/mm3 [place] # (Auto) 1.34 H (0.30-0.82) K/mm3 Eos # (Auto) 0.21 (0.04-0.54) K/mm3 Baso # (Auto) 0.02 (0.01-0.08) K/mm3 APTT (24-31) SECONDS Sodium 140 (136-145) mEq/L Potassium 4.0 (3.5-5.1) mEq/L Chloride 104 (98-107) mEq/L Carbon Dioxide 29 (21-32) mEq/L Anion Gap 11.0 (5-15) BUN 17 (7-18) mg/dL Creatinine 0.9 (0.7-1.3) mg/dL Est Cr Clr Drug Dosing 60.01 mL/min Estimated GFR (MDRD) > 60 (>60) mL/min BUN/Creatinine Ratio 18.9 H (14-18) Glucose 121 H (83-115) mg/dL POC Glucose 205 H (83-110) mg/dL Calcium 8.2 L (8.5-10.1) mg/dL Magnesium 1.5 L (1.8-2.4) mg/dl C-Reactive Protein 11.2 H* (<1.0) mg/dL 02/13/19 02/13/19 02/13/19 Range/Units 05:30 06:16 11:17 WBC (4.23-9.07) K/mm3 RBC (4.63-6.08) M/mm3 Hgb (13.7-17.5) gm/L Hct (40.1-51.0) % MCV (79.0-92.2) fl MCH (25.7-32.2) pg MCHC (32.2-35.5) g/dl RDW Std Deviation (35.1-43.9) fL Plt Count (163-337) K/mm3 MPV (9.4-12.3) fl Neut % (Auto) (34.0-67.9) % Lymph % (Auto) (21.8-53.1) % [place] % (Auto) (5.3-12.2) % Eos % (Auto) (0.8-7.0) Baso % (Auto) (0.1-1.2) % Neut # (Auto) (1.78-5.38) K/mm3 Lymph # (Auto) (1.32-3.57) K/mm3 [place] # (Auto) (0.30-0.82) K/mm3 Eos # (Auto) (0.04-0.54) K/mm3 Baso # (Auto) (0.01-0.08) K/mm3 APTT 32 H (24-31) SECONDS Sodium (136-145) mEq/L Potassium (3.5-5.1) mEq/L Chloride (98-107) mEq/L Carbon Dioxide (21-32) mEq/L Anion Gap (5-15) BUN (7-18) mg/dL Creatinine (0.7-1.3) mg/dL Est Cr Clr Drug Dosing mL/min Estimated GFR (MDRD) (>60) mL/min BUN/Creatinine Ratio (14-18) Glucose (83-115) mg/dL POC Glucose 149 H 170 H (83-110) mg/dL Calcium (8.5-10.1) mg/dL Magnesium (1.8-2.4) mg/dl C-Reactive Protein (<1.0) mg/dL Med Orders - Current: Current Medications Acetaminophen (Tylenol) 650 mg PO Q6H PRN PRN Reason: Pain/Fever Hydrocodone Bitart/Acetaminophen (Omar 325-5 Mg) 1 tab PO Q4H PRN PRN Reason: Pain (moderate 4-6) Last Admin: 02/13/19 09:29 Dose: 1 tab Aspirin (Ecotrin) 325 mg PO BID [facility] Last Admin: 02/13/19 09:49 Dose: 325 mg Dextrose/Water (Dextrose 50% In Water) 50 ml IVPUSH ASDIRECTED PRN PRN Reason: Hypoglycemia Famotidine (Pepcid) 20 mg PO BID [facility] Last Admin: 02/13/19 09:50 Dose: 20 mg Finasteride (Proscar) 5 mg PO DAILY [facility] Last Admin: 02/13/19 09:47 Dose: 5 mg Hydralazine HCl (Apresoline) 10 mg IVPUSH Q6H PRN PRN Reason: Hypertension Hydromorphone HCl (Dilaudid) 0.5 mg IVPUSH Q4H PRN PRN Reason: Pain (moderate 4-6) Last Admin: 02/12/19 16:44 Dose: 0.5 mg Hydromorphone HCl (Dilaudid) 0.5 mg IVPUSH Q6H PRN PRN Reason: Pain (severe 7-10) Sodium Chloride (Normal Saline) 1,000 mls @ 100 mls/hr IV ASDIRECTED [facility] Last Admin: 02/13/19 11:12 Dose: 100 mls/hr Insulin Human Lispro (Humalog) 0 unit SUBCUT QIDACANDBED [facility]; Protocol Levetiracetam (Keppra) 500 mg PO BID [facility] Last Admin: 02/13/19 09:51 Dose: 500 mg [facility]) [facility] Last Admin: 02/13/19 06:19 Dose: 250 mg Metoprolol Tartrate (Lopressor) 12.5 mg PO BID [facility] Last Admin: 02/13/19 10:54 Dose: 12.5 mg Metoprolol Tartrate (Lopressor) 5 mg IVPUSH Q6H PRN PRN Reason: HR>110 Oxycodone/Acetaminophen (Percocet 325-5 Mg) 1 - 2 tab PO Q4H PRN PRN Reason: Pain (severe 7-10) Last Admin: 02/13/19 04:56 Dose: 2 tab Rosuvastatin Calcium (Crestor) 10 mg PO BEDTIME [facility] Last Admin: 02/12/19 20:27 Dose: 10 mg Senna (Senna) 8.6 mg PO DAILY [facility] Last Admin: 02/13/19 09:46 Dose: 8.6 mg Sertraline HCl (Zoloft) 25 mg PO DAILY [facility] Last Admin: 02/13/19 10:06 Dose: 25 mg Tamsulosin HCl (Flomax) 0.4 mg PO BEDTIME [facility] Last Admin: 02/12/19 20:27 Dose: 0.4 mg Timolol Maleate (Timoptic 0.5% Ophth Soln) 0 ml EYEBOTH DAILY [facility] Last Admin: 02/13/19 09:32 Dose: 1 drop Discontinued Medications Hydrocodone Bitart/Acetaminophen (Omar 325-5 Mg) 1 tab PO Q6H PRN PRN Reason: Pain (moderate 4-6) Last Admin: 02/12/19 13:11 Dose: 1 tab Bupivacaine HCl (Marcaine 0.25%) Confirm Administered Dose 30 ml .ROUTE .STK- MED ONE Stop: 02/12/19 06:29 Last Admin: 02/12/19 08:55 Dose: 20 ml Bupivacaine HCl (Sensorcaine-Mpf 0.75%) Confirm Administered Dose 30 ml .ROUTE .STK-MED ONE Stop: 02/12/19 07:08 Dexamethasone (Dexamethasone) Confirm Administered Dose 4 mg .ROUTE .STK-MED ONE Stop: 02/12/19 08:20 Ephedrine Sulfate (Ephedrine In Ns) Confirm Administered Dose 25 mg .ROUTE .STK- MED ONE Stop: 02/12/19 08:19 Fentanyl (Sublimaze) Confirm Administered Dose 100 mcg .ROUTE .STK-MED ONE Stop: 02/12/19 07:02 Fentanyl (Sublimaze) 50 mcg IVPUSH Q5M PRN PRN Reason: Pain Stop: 02/12/19 12:00 Hydromorphone HCl (Dilaudid) 0.5 mg IVPUSH ONETIME ONE Stop: 02/11/19 14:21 Last Admin: 02/11/19 14:22 Dose: 0.5 mg Hydromorphone HCl (Dilaudid) Confirm Administered Dose 0.5 mg .ROUTE .STK-MED ONE Stop: 02/11/19 14:20 Last Admin: 02/11/19 14:26 Dose: Not Given Hydromorphone HCl (Dilaudid) 0.5 mg IVPUSH NOW STA Stop: 02/11/19 14:21 Last Admin: 02/11/19 14:47 Dose: 0.5 mg Hydromorphone HCl (Dilaudid) 0.5 mg IVPUSH ONETIME STA Stop: 02/11/19 15:57 Last Admin: 02/11/19 16:00 Dose: 0.5 mg Hydromorphone HCl (Dilaudid) Confirm Administered Dose 0.5 mg .ROUTE .STK-MED ONE Stop: 02/11/19 16:00 Last Admin: 02/11/19 18:29 Dose: Not Given Hydromorphone HCl (Dilaudid) Confirm Administered Dose 0.5 mg .ROUTE .STK-MED ONE Stop: 02/11/19 18:50 Last Admin: 02/11/19 19:03 Dose: Not Given Hydromorphone HCl (Dilaudid) 0.5 mg IVPUSH ONETIME STA Stop: 02/11/19 18:46 Last Admin: 02/11/19 18:45 Dose: 0.5 mg Hydromorphone HCl (Dilaudid) 0.5 mg IVPUSH Q4H PRN PRN Reason: Pain (moderate 4-6) Hydromorphone HCl (Dilaudid) 0.5 mg IVPUSH Q15M PRN PRN Reason: severe pain Stop: 02/12/19 12:00 Sodium Chloride (Sodium Chloride 0.45%) 1,000 mls @ 75 mls/hr IV ASDIRECTED [facility] Stop: 02/12/19 02:45 Last Admin: 02/11/19 22:32 Dose: 75 mls/hr Lidocaine HCl (Xylocaine-Mpf 1%) Confirm Administered Dose 4 mls @ as directed .ROUTE .STK-MED ONE Stop: 02/12/19 07:03 Lidocaine HCl (Xylocaine-Mpf 1%) Confirm Administered Dose 5 mls @ as directed .ROUTE .STK-MED ONE Stop: 02/12/19 07:08 Clindamycin Phosphate 900 mg/ (Sodium Chloride) 106 mls @ 212 mls/hr IV ONETIME ONE Stop: 02/12/19 08:14 Last Admin: 02/12/19 17:58 Dose: Not Given Lactated Ringer's (Ringers, Lactated) 1,000 mls @ 125 mls/hr IV ASDIRECTED [facility] Last Admin: 02/12/19 14:01 Dose: 125 mls/hr Clindamycin Phosphate 900 mg/ (Sodium Chloride) 106 mls @ 212 mls/hr IV Q6H JEFF Stop: 02/13/19 08:29 Last Admin: 02/13/19 09:27 Dose: 212 mls/hr Sodium Chloride (Normal Saline) 250 mls @ 999 mls/hr IV ONETIME ONE Stop: 02/13/19 11:00 Last Admin: 02/13/19 10:51 Dose: 999 mls/hr Ketamine HCl (Ketalar) Confirm Administered Dose 500 mg .ROUTE .STK-MED ONE Stop: 02/12/19 07:02 Ketorolac Tromethamine (Toradol) 15 mg IVPUSH ONETIME ONE Stop: 02/12/19 14:54 Last Admin: 02/12/19 15:10 Dose: 15 mg Midazolam HCl (Versed 1 Mg/Ml) Confirm Administered Dose 2 mg .ROUTE .STK-MED ONE Stop: 02/12/19 07:02 Ondansetron HCl (Zofran) Confirm Administered Dose 4 mg .ROUTE .STK-MED ONE Stop: 02/12/19 08:20 Phenylephrine HCl (Phenylephrine In Ns 100 Mcg/Ml) Confirm Administered Dose 1 mg .ROUTE .STK-MED ONE Stop: 02/12/19 08:19 Propofol (Diprivan 20 Ml) Confirm Administered Dose 600 mg .ROUTE .STK-MED ONE Stop: 02/12/19 07:02 - Exam Quality Assessment: Supplemental Oxygen (1L ), DVT Prophylaxis General: Alert, Cooperative, No Acute Distress. No: Oriented (somewhat confused and tired ) HEENT: Pupils Equal, Pupils Reactive, EOMI, Mucous Membr. Moist/[place] Neck: Supple, Trachea Midline Lungs: Clear to Auscultation, Normal Respiratory Effort Cardiovascular: Regular Rhythm, Tachycardia GI/Abdominal Exam: Normal Bowel Sounds, Soft, Non-Tender, No Organomegaly, No Distention (Male) Exam: Deferred Extremities: No Pedal Edema, Normal Capillary Refill, Leg Pain, Limited Range of Motion, Other (Bandage in place on right leg. Cooling pack in place. ) Peripheral Pulses: 2+: Radial (L), Radial (R), Dorsalis Pedis (L), Dorsalis Pedis (R) Skin: Warm, Dry, Intact Wound/Incisions: Dressing Dry and Intact, No Drainage Neurological: No New Focal Deficit Psy/Mental Status: Alert, Normal Affect, Normal Mood - Problem List & Annotations (1) Hypertension SNOMED Code(s): 87543892 Code(s): I10 - ESSENTIAL (PRIMARY) HYPERTENSION Status: Chronic Priority : Medium Current Visit: Yes Qualifiers: Hypertension type: essential hypertension Qualified Code(s): I10 - Essential (primary) hypertension (2) Intertrochanteric fracture, hip SNOMED Code(s): 215383640 Code(s): S72.143A - DISPLACED INTERTROCHANTERIC FRACTURE OF UNSP FEMUR, INIT Status: Acute Priority: High Current Visit: Yes (3) Congestive heart failure SNOMED Code(s): 37909729 Code(s): I50.9 - HEART FAILURE, UNSPECIFIED Status: Chronic Priority: Medium Current Visit: No Qualifiers: Heart failure type: unspecified Heart failure chronicity: acute on chronic Qualified Code(s): I50.9 - Heart failure, unspecified (4) Fall SNOMED Code(s): 3284754, 353638789 Code(s): W19.XXXA - UNSPECIFIED FALL, INITIAL ENCOUNTER Status: Acute Priority: High Current Visit: Yes Qualifiers: Encounter type: initial encounter Qualified Code(s): W19.XXXA - Unspecified fall, initial encounter (5) Bilateral subdural hematomas SNOMED Code(s): 89373976 Code(s): S06.5X9A - TRAUM SUBDR HEM W LOC OF UNSP DURATION, INIT Status: Chronic Priority: Medium Current Visit: No (6) 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 SNOMED Code(s): 23654621 Code(s): I67.2 - CEREBRAL ATHEROSCLEROSIS; Z86.73 - PRSNL HX OF TIA (TIA), AND CEREB INFRC W/O RESID DEFICITS Status: Chronic Priority: Medium Current Visit: No (7) Cervical radiculopathy SNOMED Code(s): 12408211 Code(s): M54.12 - RADICULOPATHY, CERVICAL REGION Status: Chronic Priority : Medium Current Visit: No - Problem List Review Problem List Initiated/Reviewed/Updated: Yes - My Orders Last 24 Hours: My Active Orders 02/13/19 10:45 Sodium Chloride 0.9% [Normal Saline] 1,000 ml IV ASDIRECTED 02/13/19 12:33 Blood Glucose Check, Bedside [RC] QIDACANDBED Dextrose 50% in Water 50 ml IVPUSH ASDIRECTED PRN 02/13/19 17:00 Insulin Lispro [HumaLOG] See Protocol SUBCUT QIDACANDBED - Plan Plan:: Impression: --S/P fall without LOC; right hip fracture, 02/11/19. Post-op, POD 1-->Cephalomedullary nailing of the right hip --Acute subdural hematoma, left parietal region on 01/16/19 Minimally displaced fracture, left greater trochanteric proximal femur, 01/16/19. Nonsurgical treatment for left LE. --History of CVAs CT of head without bleed, 02/11/19. --Hypotension Chronic HTN Subdural hematoma, traumatic BPH Plan: Daily Labs Pain mgt IV fluids as ordered Cautious anticoagulation with history of subdural hematoma; -starting ASA 325 mg daily; repeat CT of head as OP on 02/22/19. Home meds Ortho surgery, 02/12/19 Consult CM/SW/PT/OT. SNF placement
[2019-02-13] MEDS ORDERED: Magnesium Sulfate/Water 4 GM in Premix Bag 1 BAG IV ONE (14:15)
[2019-02-13] MEDS: Acetaminophen 325 MG Tab PO PRN (15:52)
[2019-02-13] MEDS: Insulin Lispro 100 Units/ML 3 ML Vial SUBCUT SCH ×2 (16:39→22:37)
[2019-02-13] MEDS: Sodium Chloride 0.9% 1,000 ML IV SCH ×2 (19:06→21:51)
[2019-02-13] MEDS: Tamsulosin 0.4 MG Cap.ER PO SCH (21:57)
[2019-02-13] MEDS: Rosuvastatin 10 MG Tab PO SCH (21:57)
[2019-02-14 07:19] LABS: HEMOGLOBIN A1C 5.7 % (4.50-6.20)
[2019-02-14] MEDS: metFORMIN 500 MG Tab PO SCH ×2 (07:42→16:57)
[2019-02-14] MEDS: HYDROmorphone 1 MG/ML Syringe IVPUSH PRN ×2 (07:44→23:55)
[2019-02-14] MEDS ORDERED: Magnesium Hydroxide 400 MG/5 ML Susp 30 ML Cup PO ONE (08:30)
[2019-02-14] MEDS: Insulin Lispro 100 Units/ML 3 ML Vial SUBCUT SCH ×4 (08:52→21:44)
[2019-02-14] MEDS: Timolol Maleate 0.5% Ophth Soln 5 ML Bottle EYEBOTH SCH (08:54)
[2019-02-14] MEDS: Finasteride 5 MG Tab PO SCH (08:55)
[2019-02-14] MEDS: Aspirin 325 MG Tab.EC PO SCH ×2 (08:57→21:35)
[2019-02-14] MEDS: Sertraline 25 MG Tab PO SCH (08:57)
[2019-02-14] MEDS: levETIRAcetam 500 MG Tab PO SCH ×2 (08:57→21:33)
[2019-02-14] MEDS: Metoprolol Tartrate 25 MG Tab PO SCH ×2 (08:58→21:34)
[2019-02-14] MEDS: Famotidine 20 MG Tab PO SCH ×2 (08:58→21:33)
[2019-02-14] MEDS: Sennosides 8.6 MG Tab PO SCH (09:00)
[2019-02-14] MEDS ORDERED: Magnesium Sulfate/Water 2 GM in Premix Bag 1 BAG IV ONE (10:33)
[2019-02-14] MEDS: Tamsulosin 0.4 MG Cap.ER PO SCH ×2 (12:04→21:33)
[2019-02-14] MEDS: Sodium Chloride 0.9% 1,000 ML IV SCH (12:05)
[2019-02-14] MEDS: Acetaminophen/HYDROcodone 325-5 MG Tab PO PRN ×2 (12:20→16:58)
[2019-02-14] MEDS: Aluminum Hydroxide/Magnesium Hydroxide/Simethicone Susp 30 ML Cup PO SCH ×2 (13:11→17:02)
--- NOTE | 2019-02-14 17:05 | PCM.PN ---
- General Info Date of Service: 02/14/19 Functional Status: Reports: Pain Controlled (improved), Tolerating Diet, Urinating - Review of Systems General: Reports: Weakness HEENT: Reports: No Symptoms Pulmonary: Reports: No Symptoms Cardiovascular: Reports: No Symptoms Gastrointestinal: Reports: No Symptoms Genitourinary: Reports: No Symptoms Musculoskeletal: Reports: No Symptoms Skin: Reports: No Symptoms Neurological: Reports: Weakness Psychiatric: Reports: Other (discouraged) - Patient Data Vitals - Most Recent: Last Vital Signs Temp 37.0 C 02/14/19 03:07 Pulse 102 H 02/14/19 08:58 Resp 20 02/14/19 03:07 BP 133/95 H 02/14/19 08:58 Pulse Ox 95 02/14/19 14:45 Weight - Most Recent: 83.597 kg I&O - Last 24 Hours: Intake & Output 02/14/19 02/14/19 02/14/19 06:59 14:59 22:59 Intake Total 1095 180 Output Total 1170 Balance -75 180 Lab Results Last 24 Hours: Laboratory Results - last 24 hr 02/13/19 02/13/19 02/14/19 Range/Units 16:30 22:02 06:43 WBC 9.83 H (4.23-9.07) K/mm3 RBC 3.07 L (4.63-6.08) M/mm3 Hgb 9.4 L (13.7-17.5) gm/L Hct 29.1 L (40.1-51.0) % MCV 94.8 H (79.0-92.2) fl MCH 30.6 (25.7-32.2) pg MCHC 32.3 (32.2-35.5) g/dl RDW Std Deviation 45.8 H (35.1-43.9) fL Plt Count 120 L (163-337) K/mm3 MPV 12.6 H (9.4-12.3) fl Neut % (Auto) 70.5 H (34.0-67.9) % Lymph % (Auto) 15.9 L (21.8-53.1) % [place] % (Auto) 11.0 (5.3-12.2) % Eos % (Auto) 2.0 (0.8-7.0) Baso % (Auto) 0.3 (0.1-1.2) % Neut # (Auto) 6.93 H (1.78-5.38) K/mm3 Lymph # (Auto) 1.56 (1.32-3.57) K/mm3 [place] # (Auto) 1.08 H (0.30-0.82) K/mm3 Eos # (Auto) 0.20 (0.04-0.54) K/mm3 Baso # (Auto) 0.03 (0.01-0.08) K/mm3 APTT (24-31) SECONDS Sodium (136-145) mEq/L Potassium (3.5-5.1) mEq/L Chloride (98-107) mEq/L Carbon Dioxide (21-32) mEq/L Anion Gap (5-15) BUN (7-18) mg/dL Creatinine (0.7-1.3) mg/dL Est Cr Clr Drug Dosing mL/min Estimated GFR (MDRD) (>60) mL/min BUN/Creatinine Ratio (14-18) Glucose (83-115) mg/dL POC Glucose 191 H 168 H (83-110) mg/dL Hemoglobin A1c (4.50-6.20) % Calcium (8.5-10.1) mg/dL Magnesium (1.8-2.4) mg/dl 02/14/19 02/14/19 02/14/19 Range/Units 06:43 06:43 06:43 WBC (4.23-9.07) K/mm3 RBC (4.63-6.08) M/mm3 Hgb (13.7-17.5) gm/L Hct (40.1-51.0) % MCV (79.0-92.2) fl MCH (25.7-32.2) pg MCHC (32.2-35.5) g/dl RDW Std Deviation (35.1-43.9) fL Plt Count (163-337) K/mm3 MPV (9.4-12.3) fl Neut % (Auto) (34.0-67.9) % Lymph % (Auto) (21.8-53.1) % [place] % (Auto) (5.3-12.2) % Eos % (Auto) (0.8-7.0) Baso % (Auto) (0.1-1.2) % Neut # (Auto) (1.78-5.38) K/mm3 Lymph # (Auto) (1.32-3.57) K/mm3 [place] # (Auto) (0.30-0.82) K/mm3 Eos # (Auto) (0.04-0.54) K/mm3 Baso # (Auto) (0.01-0.08) K/mm3 APTT 33 H (24-31) SECONDS Sodium 141 (136-145) mEq/L Potassium 4.1 (3.5-5.1) mEq/L Chloride 106 (98-107) mEq/L Carbon Dioxide 28 (21-32) mEq/L Anion Gap 11.1 (5-15) BUN 12 (7-18) mg/dL Creatinine 0.7 (0.7-1.3) mg/dL Est Cr Clr Drug Dosing 77.15 mL/min Estimated GFR (MDRD) > 60 (>60) mL/min BUN/Creatinine Ratio 17.1 (14-18) Glucose 128 H (83-115) mg/dL POC Glucose (83-110) mg/dL Hemoglobin A1c 5.70 (4.50-6.20) % Calcium 7.8 L (8.5-10.1) mg/dL Magnesium 1.9 (1.8-2.4) mg/dl 02/14/19 02/14/19 Range/Units 06:49 12:02 WBC (4.23-9.07) K/mm3 RBC (4.63-6.08) M/mm3 Hgb (13.7-17.5) gm/L Hct (40.1-51.0) % MCV (79.0-92.2) fl MCH (25.7-32.2) pg MCHC (32.2-35.5) g/dl RDW Std Deviation (35.1-43.9) fL Plt Count (163-337) K/mm3 MPV (9.4-12.3) fl Neut % (Auto) (34.0-67.9) % Lymph % (Auto) (21.8-53.1) % [place] % (Auto) (5.3-12.2) % Eos % (Auto) (0.8-7.0) Baso % (Auto) (0.1-1.2) % Neut # (Auto) (1.78-5.38) K/mm3 Lymph # (Auto) (1.32-3.57) K/mm3 [place] # (Auto) (0.30-0.82) K/mm3 Eos # (Auto) (0.04-0.54) K/mm3 Baso # (Auto) (0.01-0.08) K/mm3 APTT (24-31) SECONDS Sodium (136-145) mEq/L Potassium (3.5-5.1) mEq/L Chloride (98-107) mEq/L Carbon Dioxide (21-32) mEq/L Anion Gap (5-15) BUN (7-18) mg/dL Creatinine (0.7-1.3) mg/dL Est Cr Clr Drug Dosing mL/min Estimated GFR (MDRD) (>60) mL/min BUN/Creatinine Ratio (14-18) Glucose (83-115) mg/dL POC Glucose 139 H 164 H (83-110) mg/dL Hemoglobin A1c (4.50-6.20) % Calcium (8.5-10.1) mg/dL Magnesium (1.8-2.4) mg/dl Med Orders - Current: Current Medications Acetaminophen (Tylenol) 650 mg PO Q6H PRN PRN Reason: Pain/Fever Last Admin: 02/13/19 15:52 Dose: 650 mg Hydrocodone Bitart/Acetaminophen (Helper 325-5 Mg) 1 tab PO Q4H PRN PRN Reason: Pain (moderate 4-6) Last Admin: 02/14/19 16:58 Dose: 1 tab Al Hydroxide/Mg Hydroxide (Mag-Al Plus) 15 ml PO TID@0800,1200,1700 [facility] Last Admin: 02/14/19 13:11 Dose: 15 ml Aspirin (Ecotrin) 325 mg PO BID [facility] Last Admin: 02/14/19 08:57 Dose: 325 mg Dextrose/Water (Dextrose 50% In Water) 50 ml IVPUSH ASDIRECTED PRN PRN Reason: Hypoglycemia Famotidine (Pepcid) 20 mg PO BID [facility] Last Admin: 02/14/19 08:58 Dose: 20 mg Finasteride (Proscar) 5 mg PO DAILY [facility] Last Admin: 02/14/19 08:55 Dose: 5 mg Hydralazine HCl (Apresoline) 10 mg IVPUSH Q6H PRN PRN Reason: Hypertension Hydromorphone HCl (Dilaudid) 0.5 mg IVPUSH Q4H PRN PRN Reason: Pain (moderate 4-6) Last Admin: 02/14/19 07:44 Dose: 0.5 mg Hydromorphone HCl (Dilaudid) 0.5 mg IVPUSH Q6H PRN PRN Reason: Pain (severe 7-10) Sodium Chloride (Normal Saline) 1,000 mls @ 75 mls/hr IV ASDIRECTED [facility] Last Admin: 02/14/19 12:05 Dose: 75 mls/hr Insulin Human Lispro (Humalog) 0 unit SUBCUT QIDACANDBED [facility]; Protocol Last Admin: 02/14/19 12:11 Dose: 1 unit Levetiracetam (Keppra) 500 mg PO BID [facility] Last Admin: 02/14/19 08:57 Dose: 500 mg Metformin HCl (Glucophage) 250 mg PO BIDMEALS [facility] Last Admin: 02/14/19 16:57 Dose: 250 mg Metoprolol Tartrate (Lopressor) 12.5 mg PO BID [facility] Last Admin: 02/14/19 08:58 Dose: 12.5 mg Metoprolol Tartrate (Lopressor) 5 mg IVPUSH Q6H PRN PRN Reason: HR>110 Oxycodone/Acetaminophen (Percocet 325-5 Mg) 1 - 2 tab PO Q4H PRN PRN Reason: Pain (severe 7-10) Last Admin: 02/13/19 04:56 Dose: 2 tab Rosuvastatin Calcium (Crestor) 10 mg PO BEDTIME [facility] Last Admin: 02/13/19 21:57 Dose: 10 mg Senna (Senna) 8.6 mg PO DAILY [facility] Last Admin: 02/14/19 09:00 Dose: 8.6 mg Sertraline HCl (Zoloft) 25 mg PO DAILY [facility] Last Admin: 02/14/19 08:57 Dose: 25 mg Tamsulosin HCl (Flomax) 0.4 mg PO BID [facility] Last Admin: 02/14/19 12:04 Dose: 0.4 mg Timolol Maleate (Timoptic 0.5% Ophth Soln) 0 ml EYEBOTH DAILY [facility] Last Admin: 02/14/19 08:54 Dose: 1 drop Discontinued Medications Hydrocodone Bitart/Acetaminophen (Helper 325-5 Mg) 1 tab PO Q6H PRN PRN Reason: Pain (moderate 4-6) Last Admin: 02/12/19 13:11 Dose: 1 tab Bupivacaine HCl (Marcaine 0.25%) Confirm Administered Dose 30 ml .ROUTE .STK- MED ONE Stop: 02/12/19 06:29 Last Admin: 02/12/19 08:55 Dose: 20 ml Bupivacaine HCl (Sensorcaine-Mpf 0.75%) Confirm Administered Dose 30 ml .ROUTE .STK-MED ONE Stop: 02/12/19 07:08 Dexamethasone (Dexamethasone) Confirm Administered Dose 4 mg .ROUTE .STK-MED ONE Stop: 02/12/19 08:20 Ephedrine Sulfate (Ephedrine In Ns) Confirm Administered Dose 25 mg .ROUTE .STK- MED ONE Stop: 02/12/19 08:19 Fentanyl (Sublimaze) Confirm Administered Dose 100 mcg .ROUTE .STK-MED ONE Stop: 02/12/19 07:02 Fentanyl (Sublimaze) 50 mcg IVPUSH Q5M PRN PRN Reason: Pain Stop: 02/12/19 12:00 Hydromorphone HCl (Dilaudid) 0.5 mg IVPUSH ONETIME ONE Stop: 02/11/19 14:21 Last Admin: 02/11/19 14:22 Dose: 0.5 mg Hydromorphone HCl (Dilaudid) Confirm Administered Dose 0.5 mg .ROUTE .STK-MED ONE Stop: 02/11/19 14:20 Last Admin: 02/11/19 14:26 Dose: Not Given Hydromorphone HCl (Dilaudid) 0.5 mg IVPUSH NOW STA Stop: 02/11/19 14:21 Last Admin: 02/11/19 14:47 Dose: 0.5 mg Hydromorphone HCl (Dilaudid) 0.5 mg IVPUSH ONETIME STA Stop: 02/11/19 15:57 Last Admin: 02/11/19 16:00 Dose: 0.5 mg Hydromorphone HCl (Dilaudid) Confirm Administered Dose 0.5 mg .ROUTE .STK-MED ONE Stop: 02/11/19 16:00 Last Admin: 02/11/19 18:29 Dose: Not Given Hydromorphone HCl (Dilaudid) Confirm Administered Dose 0.5 mg .ROUTE .STK-MED ONE Stop: 02/11/19 18:50 Last Admin: 02/11/19 19:03 Dose: Not Given Hydromorphone HCl (Dilaudid) 0.5 mg IVPUSH ONETIME STA Stop: 02/11/19 18:46 Last Admin: 02/11/19 18:45 Dose: 0.5 mg Hydromorphone HCl (Dilaudid) 0.5 mg IVPUSH Q4H PRN PRN Reason: Pain (moderate 4-6) Hydromorphone HCl (Dilaudid) 0.5 mg IVPUSH Q15M PRN PRN Reason: severe pain Stop: 02/12/19 12:00 Sodium Chloride (Sodium Chloride 0.45%) 1,000 mls @ 75 mls/hr IV ASDIRECTED [facility] Stop: 02/12/19 02:45 Last Admin: 02/11/19 22:32 Dose: 75 mls/hr Lidocaine HCl (Xylocaine-Mpf 1%) Confirm Administered Dose 4 mls @ as directed .ROUTE .STK-MED ONE Stop: 02/12/19 07:03 Lidocaine HCl (Xylocaine-Mpf 1%) Confirm Administered Dose 5 mls @ as directed .ROUTE .STK-MED ONE Stop: 02/12/19 07:08 Clindamycin Phosphate 900 mg/ (Sodium Chloride) 106 mls @ 212 mls/hr IV ONETIME ONE Stop: 02/12/19 08:14 Last Admin: 02/12/19 17:58 Dose: Not Given Lactated Ringer's (Ringers, Lactated) 1,000 mls @ 125 mls/hr IV ASDIRECTED [facility] Last Admin: 02/12/19 14:01 Dose: 125 mls/hr Clindamycin Phosphate 900 mg/ (Sodium Chloride) 106 mls @ 212 mls/hr IV Q6H [facility] Stop: 02/13/19 08:29 Last Admin: 02/13/19 09:27 Dose: 212 mls/hr Sodium Chloride (Normal Saline) 250 mls @ 999 mls/hr IV ONETIME ONE Stop: 02/13/19 11:00 Last Admin: 02/13/19 10:51 Dose: 999 mls/hr Sodium Chloride (Normal Saline) 1,000 mls @ 100 mls/hr IV ASDIRECTED [facility] Last Admin: 02/13/19 11:12 Dose: 100 mls/hr Magnesium Sulfate 4 gm/ Premix 50 mls @ 12.5 mls/hr IV ONETIME ONE Stop: 02/13/19 18:14 Last Admin: 02/13/19 15:39 Dose: 12.5 mls/hr Magnesium Sulfate 2 gm/ Premix 50 mls @ 25 mls/hr IV ONETIME ONE Stop: 02/14/19 12:32 Last Admin: 02/14/19 12:06 Dose: 25 mls/hr Ketamine HCl (Ketalar) Confirm Administered Dose 500 mg .ROUTE .STK-MED ONE Stop: 02/12/19 07:02 Ketorolac Tromethamine (Toradol) 15 mg IVPUSH ONETIME ONE Stop: 02/12/19 14:54 Last Admin: 02/12/19 15:10 Dose: 15 mg Magnesium Hydroxide (Milk Of Magnesia) 30 ml PO ONETIME ONE Stop: 02/14/19 08:31 Last Admin: 02/14/19 09:01 Dose: 30 ml Midazolam HCl (Versed 1 Mg/Ml) Confirm Administered Dose 2 mg .ROUTE .STK-MED ONE Stop: 02/12/19 07:02 Ondansetron HCl (Zofran) Confirm Administered Dose 4 mg .ROUTE .STK-MED ONE Stop: 02/12/19 08:20 Phenylephrine HCl (Phenylephrine In Ns 100 Mcg/Ml) Confirm Administered Dose 1 mg .ROUTE .STK-MED ONE Stop: 02/12/19 08:19 Propofol (Diprivan 20 Ml) Confirm Administered Dose 600 mg .ROUTE .STK-MED ONE Stop: 02/12/19 07:02 Tamsulosin HCl (Flomax) 0.4 mg PO BEDTIME [facility] Last Admin: 02/13/19 21:57 Dose: 0.4 mg - Exam Quality Assessment: Supplemental Oxygen, DVT Prophylaxis General: Alert, Oriented, Cooperative, No Acute Distress HEENT: Pupils Equal, Pupils Reactive, EOMI Neck: Trachea Midline, No JVD Lungs: Normal Respiratory Effort GI/Abdominal Exam: Normal Bowel Sounds, Soft, Non-Tender, No Organomegaly, No Distention (Male) Exam: Deferred Back Exam: Normal Inspection Extremities: Normal Inspection, Normal Capillary Refill, Limited Range of Motion Skin: Warm Wound/Incisions: Dressing Dry and Intact Neurological: No New Focal Deficit, Normal Speech Psy/Mental Status: Alert - Problem List & Annotations (1) Hypertension SNOMED Code(s): 15309317 Code(s): I10 - ESSENTIAL (PRIMARY) HYPERTENSION Status: Chronic Priority : Medium Current Visit: Yes Qualifiers: Hypertension type: essential hypertension Qualified Code(s): I10 - Essential (primary) hypertension (2) Intertrochanteric fracture, hip SNOMED Code(s): 451087144 Code(s): S72.143A - DISPLACED INTERTROCHANTERIC FRACTURE OF UNSP FEMUR, INIT Status: Acute Priority: High Current Visit: Yes (3) Bilateral subdural hematomas SNOMED Code(s): 14728091 Code(s): S06.5X9A - TRAUM SUBDR HEM W LOC OF UNSP DURATION, INIT Status: Chronic Priority: Medium Current Visit: No (4) 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 SNOMED Code(s): 34752021 Code(s): I67.2 - CEREBRAL ATHEROSCLEROSIS; Z86.73 - PRSNL HX OF TIA (TIA), AND CEREB INFRC W/O RESID DEFICITS Status: Chronic Priority: Medium Current Visit: No (5) Cervical radiculopathy SNOMED Code(s): 67505538 Code(s): M54.12 - RADICULOPATHY, CERVICAL REGION Status: Chronic Priority : Medium Current Visit: No (6) Congestive heart failure SNOMED Code(s): 16812507 Code(s): I50.9 - HEART FAILURE, UNSPECIFIED Status: Chronic Priority: Medium Current Visit: No Qualifiers: Heart failure type: unspecified Heart failure chronicity: acute on chronic Qualified Code(s): I50.9 - Heart failure, unspecified (7) Fall SNOMED Code(s): 6893989, 257553195 Code(s): W19.XXXA - UNSPECIFIED FALL, INITIAL ENCOUNTER Status: Acute Priority: High Current Visit: Yes Qualifiers: Encounter type: initial encounter Qualified Code(s): W19.XXXA - Unspecified fall, initial encounter - Problem List Review Problem List Initiated/Reviewed/Updated: Yes - My Orders Last 24 Hours: My Active Orders 02/14/19 04:46 Bladder Scan [RC] ASDIRECTED 02/14/19 11:53 Bladder Scan [RC] ASDIRECTED 02/14/19 12:00 Tamsulosin [Flomax] 0.4 mg PO BID 02/14/19 13:00 Alum Hydrox/Mag Hydrox/Simeth [Mag-Al Plus] 15 ml PO TID@0800,1200,1700 02/15/19 05:00 BASIC METABOLIC PANEL,BMP [CHEM] DAILY CBC WITH AUTO DIFF [HEME] DAILY MAGNESIUM [CHEM] DAILY PTT,PARTIAL THROMBOPLSTIN TIME [COAG] DAILY 02/16/19 05:00 MAGNESIUM [CHEM] DAILY - Plan Plan:: Impression: --S/P fall without LOC; right hip fracture, 02/11/19. Post-op, POD 1-->Cephalomedullary nailing of the right hip --Acute subdural hematoma, left parietal region on 01/16/19 Minimally displaced fracture, left greater trochanteric proximal femur, 01/16/19. Nonsurgical treatment for left LE. --History of CVAs CT of head without bleed, 02/11/19. --Hypotension Chronic HTN Subdural hematoma, traumatic BPH Plan: Daily Labs Pain mgt IV fluids as ordered Cautious anticoagulation with history of subdural hematoma; -starting ASA 325 mg daily; repeat CT of head as OP on 02/22/19. Home meds Ortho surgery, 02/12/19 Consult CM/SW/PT/OT. SNF placement LOS>96 hours post op, ortho surgery, will need placement.
[2019-02-14] MEDS: Rosuvastatin 10 MG Tab PO SCH (21:35)
[2019-02-15] MEDS: Sodium Chloride 0.9% 1,000 ML IV SCH ×2 (01:22→14:42)
[2019-02-15] MEDS: Acetaminophen/oxyCODONE 325-5 MG Tab PO PRN (03:19)
[2019-02-15] MEDS: Insulin Lispro 100 Units/ML 3 ML Vial SUBCUT SCH ×4 (07:40→21:27)
[2019-02-15] MEDS: Aluminum Hydroxide/Magnesium Hydroxide/Simethicone Susp 30 ML Cup PO SCH (07:41)
[2019-02-15] MEDS: Finasteride 5 MG Tab PO SCH (08:10)
[2019-02-15] MEDS: Tamsulosin 0.4 MG Cap.ER PO SCH ×2 (08:10→20:11)
[2019-02-15] MEDS: Aspirin 325 MG Tab.EC PO SCH ×2 (08:10→20:11)
[2019-02-15] MEDS: Sertraline 25 MG Tab PO SCH (08:10)
[2019-02-15] MEDS: Metoprolol Tartrate 25 MG Tab PO SCH ×2 (08:11→20:12)
[2019-02-15] MEDS: Famotidine 20 MG Tab PO SCH ×2 (08:11→20:11)
[2019-02-15] MEDS: metFORMIN 500 MG Tab PO SCH ×2 (08:11→16:55)
[2019-02-15] MEDS: levETIRAcetam 500 MG Tab PO SCH ×2 (08:11→20:11)
[2019-02-15] MEDS: Sennosides 8.6 MG Tab PO SCH (08:12)
[2019-02-15] MEDS: Timolol Maleate 0.5% Ophth Soln 5 ML Bottle EYEBOTH SCH (08:24)
[2019-02-15] MEDS: Acetaminophen 325 MG Tab PO PRN (14:43)
[2019-02-15] MEDS ORDERED: Magnesium Sulfate/Water 2 GM in Premix Bag 1 BAG IV ONE (16:18)
--- NOTE | 2019-02-15 16:26 | PCM.PN ---
- General Info Date of Service: 02/15/19 Subjective Update: Difficulty standing and participating with PT exercises. SNF pending. Functional Status: Reports: Pain Controlled - Review of Systems General: Reports: Weakness HEENT: Reports: No Symptoms Pulmonary: Reports: No Symptoms Cardiovascular: Reports: No Symptoms Gastrointestinal: Reports: No Symptoms Genitourinary: Reports: No Symptoms Musculoskeletal: Reports: No Symptoms Skin: Reports: No Symptoms Neurological: Reports: No Symptoms Psychiatric: Reports: No Symptoms - Patient Data Vitals - Most Recent: Last Vital Signs Temp 36.5 C 02/15/19 11:56 Pulse 89 02/15/19 11:56 Resp 16 02/15/19 11:56 BP 119/63 02/15/19 11:56 Pulse Ox 98 02/15/19 11:56 Weight - Most Recent: 85.411 kg I&O - Last 24 Hours: Intake & Output 02/15/19 02/15/19 02/15/19 06:59 14:59 22:59 Intake Total 1200 210 Output Total 300 Balance 900 210 Lab Results Last 24 Hours: Laboratory Results - last 24 hr 02/14/19 02/14/19 02/15/19 Range/Units 17:04 21:39 04:52 WBC 10.00 H (4.23-9.07) K/mm3 RBC 2.70 L (4.63-6.08) M/mm3 Hgb 8.0 L (13.7-17.5) gm/L Hct 25.6 L (40.1-51.0) % MCV 94.8 H (79.0-92.2) fl MCH 29.6 (25.7-32.2) pg MCHC 31.3 L (32.2-35.5) g/dl RDW Std Deviation 45.6 H (35.1-43.9) fL Plt Count 118 L (163-337) K/mm3 MPV 12.7 H (9.4-12.3) fl Neut % (Auto) 73.7 H (34.0-67.9) % Lymph % (Auto) 14.4 L (21.8-53.1) % [place] % (Auto) 10.6 (5.3-12.2) % Eos % (Auto) 0.9 (0.8-7.0) Baso % (Auto) 0.2 (0.1-1.2) % Neut # (Auto) 7.37 H (1.78-5.38) K/mm3 Lymph # (Auto) 1.44 (1.32-3.57) K/mm3 [place] # (Auto) 1.06 H (0.30-0.82) K/mm3 Eos # (Auto) 0.09 (0.04-0.54) K/mm3 Baso # (Auto) 0.02 (0.01-0.08) K/mm3 APTT (24-31) SECONDS Sodium (136-145) mEq/L Potassium (3.5-5.1) mEq/L Chloride (98-107) mEq/L Carbon Dioxide (21-32) mEq/L Anion Gap (5-15) BUN (7-18) mg/dL Creatinine (0.7-1.3) mg/dL Est Cr Clr Drug Dosing mL/min Estimated GFR (MDRD) (>60) mL/min BUN/Creatinine Ratio (14-18) Glucose (83-115) mg/dL POC Glucose 142 H 187 H (83-110) mg/dL Calcium (8.5-10.1) mg/dL Magnesium (1.8-2.4) mg/dl 02/15/19 02/15/19 02/15/19 Range/Units 04:52 04:52 07:09 WBC (4.23-9.07) K/mm3 RBC (4.63-6.08) M/mm3 Hgb (13.7-17.5) gm/L Hct (40.1-51.0) % MCV (79.0-92.2) fl MCH (25.7-32.2) pg MCHC (32.2-35.5) g/dl RDW Std Deviation (35.1-43.9) fL Plt Count (163-337) K/mm3 MPV (9.4-12.3) fl Neut % (Auto) (34.0-67.9) % Lymph % (Auto) (21.8-53.1) % [place] % (Auto) (5.3-12.2) % Eos % (Auto) (0.8-7.0) Baso % (Auto) (0.1-1.2) % Neut # (Auto) (1.78-5.38) K/mm3 Lymph # (Auto) (1.32-3.57) K/mm3 [place] # (Auto) (0.30-0.82) K/mm3 Eos # (Auto) (0.04-0.54) K/mm3 Baso # (Auto) (0.01-0.08) K/mm3 APTT 36 H (24-31) SECONDS Sodium 138 (136-145) mEq/L Potassium 4.0 (3.5-5.1) mEq/L Chloride 106 (98-107) mEq/L Carbon Dioxide 26 (21-32) mEq/L Anion Gap 10.0 (5-15) BUN 13 (7-18) mg/dL Creatinine 0.7 (0.7-1.3) mg/dL Est Cr Clr Drug Dosing 77.15 mL/min Estimated GFR (MDRD) > 60 (>60) mL/min BUN/Creatinine Ratio 18.6 H (14-18) Glucose 133 H (83-115) mg/dL POC Glucose 136 H (83-110) mg/dL Calcium 7.2 L (8.5-10.1) mg/dL Magnesium 1.8 (1.8-2.4) mg/dl 02/15/19 02/15/19 Range/Units 10:42 11:20 WBC (4.23-9.07) K/mm3 RBC (4.63-6.08) M/mm3 Hgb 9.5 L (13.7-17.5) gm/L Hct (40.1-51.0) % MCV (79.0-92.2) fl MCH (25.7-32.2) pg MCHC (32.2-35.5) g/dl RDW Std Deviation (35.1-43.9) fL Plt Count (163-337) K/mm3 MPV (9.4-12.3) fl Neut % (Auto) (34.0-67.9) % Lymph % (Auto) (21.8-53.1) % [place] % (Auto) (5.3-12.2) % Eos % (Auto) (0.8-7.0) Baso % (Auto) (0.1-1.2) % Neut # (Auto) (1.78-5.38) K/mm3 Lymph # (Auto) (1.32-3.57) K/mm3 [place] # (Auto) (0.30-0.82) K/mm3 Eos # (Auto) (0.04-0.54) K/mm3 Baso # (Auto) (0.01-0.08) K/mm3 APTT (24-31) SECONDS Sodium (136-145) mEq/L Potassium (3.5-5.1) mEq/L Chloride (98-107) mEq/L Carbon Dioxide (21-32) mEq/L Anion Gap (5-15) BUN (7-18) mg/dL Creatinine (0.7-1.3) mg/dL Est Cr Clr Drug Dosing mL/min Estimated GFR (MDRD) (>60) mL/min BUN/Creatinine Ratio (14-18) Glucose (83-115) mg/dL POC Glucose 170 H (83-110) mg/dL Calcium (8.5-10.1) mg/dL Magnesium (1.8-2.4) mg/dl Med Orders - Current: Current Medications Acetaminophen (Tylenol) 650 mg PO Q6H PRN PRN Reason: Pain/Fever Last Admin: 02/15/19 14:43 Dose: 650 mg Hydrocodone Bitart/Acetaminophen ([place] 325-5 Mg) 1 tab PO Q4H PRN PRN Reason: Pain (moderate 4-6) Last Admin: 02/14/19 16:58 Dose: 1 tab Aspirin (Ecotrin) 325 mg PO BID [facility] Last Admin: 02/15/19 08:10 Dose: 325 mg Dextrose/Water (Dextrose 50% In Water) 50 ml IVPUSH ASDIRECTED PRN PRN Reason: Hypoglycemia Famotidine (Pepcid) 20 mg PO BID [facility] Last Admin: 02/15/19 08:11 Dose: 20 mg Finasteride (Proscar) 5 mg PO DAILY [facility] Last Admin: 02/15/19 08:10 Dose: 5 mg Hydralazine HCl (Apresoline) 10 mg IVPUSH Q6H PRN PRN Reason: Hypertension Hydromorphone HCl (Dilaudid) 0.5 mg IVPUSH Q4H PRN PRN Reason: Pain (moderate 4-6) Last Admin: 02/14/19 23:55 Dose: 0.5 mg Hydromorphone HCl (Dilaudid) 0.5 mg IVPUSH Q6H PRN PRN Reason: Pain (severe 7-10) Sodium Chloride (Normal Saline) 1,000 mls @ 75 mls/hr IV ASDIRECTED [facility] Last Admin: 02/15/19 14:42 Dose: 75 mls/hr Magnesium Sulfate 2 gm/ Premix 50 mls @ 25 mls/hr IV ONETIME ONE Stop: 02/15/19 18:17 Insulin Human Lispro (Humalog) 0 unit SUBCUT QIDACANDBED [facility]; Protocol Last Admin: 02/15/19 12:12 Dose: 1 unit Levetiracetam (Keppra) 500 mg PO BID [facility] Last Admin: 02/15/19 08:11 Dose: 500 mg [facility] Admin: 02/15/19 08:11 Dose: 250 mg Metoprolol Tartrate (Lopressor) 5 mg IVPUSH Q6H PRN PRN Reason: HR>110 Last Admin: 02/14/19 23:47 Dose: 5 mg Metoprolol Tartrate (Lopressor) 25 mg PO BID [facility] Last Admin: 02/15/19 08:11 Dose: 25 mg Oxycodone/Acetaminophen (Percocet 325-5 Mg) 1 - 2 tab PO Q4H PRN PRN Reason: Pain (severe 7-10) Last Admin: 02/15/19 03:19 Dose: 2 tab Rosuvastatin Calcium (Crestor) 10 mg PO BEDTIME [facility] Last Admin: 02/14/19 21:35 Dose: 10 mg Senna (Senna) 8.6 mg PO DAILY [facility] Last Admin: 02/15/19 08:12 Dose: Not Given Sertraline HCl (Zoloft) 25 mg PO DAILY [facility] Last Admin: 02/15/19 08:10 Dose: 25 mg Tamsulosin HCl (Flomax) 0.4 mg PO BID [facility] Last Admin: 02/15/19 08:10 Dose: 0.4 mg Timolol Maleate (Timoptic 0.5% Ophth Soln) 0 ml EYEBOTH DAILY [facility] Last Admin: 02/15/19 08:24 Dose: 1 drop Discontinued Medications Hydrocodone Bitart/Acetaminophen ([place] 325-5 Mg) 1 tab PO Q6H PRN PRN Reason: Pain (moderate 4-6) Last Admin: 02/12/19 13:11 Dose: 1 tab Al Hydroxide/Mg Hydroxide (Mag-Al Plus) 15 ml PO TID@0800,1200,1700 JEFF Last Admin: 02/15/19 07:41 Dose: Not Given Bupivacaine HCl (Marcaine 0.25%) Confirm Administered Dose 30 ml .ROUTE .STK- MED ONE Stop: 02/12/19 06:29 Last Admin: 02/12/19 08:55 Dose: 20 ml Bupivacaine HCl (Sensorcaine-Mpf 0.75%) Confirm Administered Dose 30 ml .ROUTE .STK-MED ONE Stop: 02/12/19 07:08 Dexamethasone (Dexamethasone) Confirm Administered Dose 4 mg .ROUTE .STK-MED ONE Stop: 02/12/19 08:20 Ephedrine Sulfate (Ephedrine In Ns) Confirm Administered Dose 25 mg .ROUTE .STK- MED ONE Stop: 02/12/19 08:19 Fentanyl (Sublimaze) Confirm Administered Dose 100 mcg .ROUTE .STK-MED ONE Stop: 02/12/19 07:02 Fentanyl (Sublimaze) 50 mcg IVPUSH Q5M PRN PRN Reason: Pain Stop: 02/12/19 12:00 Hydromorphone HCl (Dilaudid) 0.5 mg IVPUSH ONETIME ONE Stop: 02/11/19 14:21 Last Admin: 02/11/19 14:22 Dose: 0.5 mg Hydromorphone HCl (Dilaudid) Confirm Administered Dose 0.5 mg .ROUTE .STK-MED ONE Stop: 02/11/19 14:20 Last Admin: 02/11/19 14:26 Dose: Not Given Hydromorphone HCl (Dilaudid) 0.5 mg IVPUSH NOW STA Stop: 02/11/19 14:21 Last Admin: 02/11/19 14:47 Dose: 0.5 mg Hydromorphone HCl (Dilaudid) 0.5 mg IVPUSH ONETIME STA Stop: 02/11/19 15:57 Last Admin: 02/11/19 16:00 Dose: 0.5 mg Hydromorphone HCl (Dilaudid) Confirm Administered Dose 0.5 mg .ROUTE .STK-MED ONE Stop: 02/11/19 16:00 Last Admin: 02/11/19 18:29 Dose: Not Given Hydromorphone HCl (Dilaudid) Confirm Administered Dose 0.5 mg .ROUTE .STK-MED ONE Stop: 02/11/19 18:50 Last Admin: 02/11/19 19:03 Dose: Not Given Hydromorphone HCl (Dilaudid) 0.5 mg IVPUSH ONETIME STA Stop: 02/11/19 18:46 Last Admin: 02/11/19 18:45 Dose: 0.5 mg Hydromorphone HCl (Dilaudid) 0.5 mg IVPUSH Q4H PRN PRN Reason: Pain (moderate 4-6) Hydromorphone HCl (Dilaudid) 0.5 mg IVPUSH Q15M PRN PRN Reason: severe pain Stop: 02/12/19 12:00 Sodium Chloride (Sodium Chloride 0.45%) 1,000 mls @ 75 mls/hr IV ASDIRECTED [facility] Stop: 02/12/19 02:45 Last Admin: 02/11/19 22:32 Dose: 75 mls/hr Lidocaine HCl (Xylocaine-Mpf 1%) Confirm Administered Dose 4 mls @ as directed .ROUTE .STK-MED ONE Stop: 02/12/19 07:03 Lidocaine HCl (Xylocaine-Mpf 1%) Confirm Administered Dose 5 mls @ as directed .ROUTE .STK-MED ONE Stop: 02/12/19 07:08 Clindamycin Phosphate 900 mg/ (Sodium Chloride) 106 mls @ 212 mls/hr IV ONETIME ONE Stop: 02/12/19 08:14 Last Admin: 02/12/19 17:58 Dose: Not Given Lactated Ringer's (Ringers, Lactated) 1,000 mls @ 125 mls/hr IV ASDIRECTED [facility] Last Admin: 02/12/19 14:01 Dose: 125 mls/hr Clindamycin Phosphate 900 mg/ (Sodium Chloride) 106 mls @ 212 mls/hr IV Q6H [facility] Stop: 02/13/19 08:29 Last Admin: 02/13/19 09:27 Dose: 212 mls/hr Sodium Chloride (Normal Saline) 250 mls @ 999 mls/hr IV ONETIME ONE Stop: 02/13/19 11:00 Last Admin: 02/13/19 10:51 Dose: 999 mls/hr Sodium Chloride (Normal Saline) 1,000 mls @ 100 mls/hr IV ASDIRECTED [facility] Last Admin: 02/13/19 11:12 Dose: 100 mls/hr Magnesium Sulfate 4 gm/ Premix 50 mls @ 12.5 mls/hr IV ONETIME ONE Stop: 02/13/19 18:14 Last Admin: 02/13/19 15:39 Dose: 12.5 mls/hr Magnesium Sulfate 2 gm/ Premix 50 mls @ 25 mls/hr IV ONETIME ONE Stop: 02/14/19 12:32 Last Admin: 02/14/19 12:06 Dose: 25 mls/hr Ketamine HCl (Ketalar) Confirm Administered Dose 500 mg .ROUTE .STK-MED ONE Stop: 02/12/19 07:02 Ketorolac Tromethamine (Toradol) 15 mg IVPUSH ONETIME ONE Stop: 02/12/19 14:54 Last Admin: 02/12/19 15:10 Dose: 15 mg Magnesium Hydroxide (Milk Of Magnesia) 30 ml PO ONETIME ONE Stop: 02/14/19 08:31 Last Admin: 02/14/19 09:01 Dose: 30 ml Metoprolol Tartrate (Lopressor) 12.5 mg PO BID [facility] Last Admin: 02/14/19 08:58 Dose: 12.5 mg Midazolam HCl (Versed 1 Mg/Ml) Confirm Administered Dose 2 mg .ROUTE .STK-MED ONE Stop: 02/12/19 07:02 Ondansetron HCl (Zofran) Confirm Administered Dose 4 mg .ROUTE .STK-MED ONE Stop: 02/12/19 08:20 Phenylephrine HCl (Phenylephrine In Ns 100 Mcg/Ml) Confirm Administered Dose 1 mg .ROUTE .STK-MED ONE Stop: 02/12/19 08:19 Propofol (Diprivan 20 Ml) Confirm Administered Dose 600 mg .ROUTE .STK-MED ONE Stop: 02/12/19 07:02 Tamsulosin HCl (Flomax) 0.4 mg PO BEDTIME [facility] Last Admin: 02/13/19 21:57 Dose: 0.4 mg - Exam Quality Assessment: DVT Prophylaxis General: Alert, Oriented, Cooperative HEENT: Pupils Equal, Pupils Reactive, EOMI Neck: Trachea Midline, No JVD Lungs: Normal Respiratory Effort Cardiovascular: Regular Rate, Regular Rhythm GI/Abdominal Exam: Normal Bowel Sounds, Soft, Non-Tender, No Organomegaly, No Distention (Male) Exam: Deferred Back Exam: Normal Inspection Extremities: Normal Inspection, Non-Tender, Normal Capillary Refill Skin: Warm Neurological: No New Focal Deficit Psy/Mental Status: Alert, Normal Affect, Normal Mood - Problem List & Annotations (1) Hypertension SNOMED Code(s): 37213669 Code(s): I10 - ESSENTIAL (PRIMARY) HYPERTENSION Status: Chronic Priority : Medium Current Visit: Yes Qualifiers: Hypertension type: essential hypertension Qualified Code(s): I10 - Essential (primary) hypertension (2) Intertrochanteric fracture, hip SNOMED Code(s): 599033730 Code(s): S72.143A - DISPLACED INTERTROCHANTERIC FRACTURE OF UNSP FEMUR, INIT Status: Acute Priority: High Current Visit: Yes (3) Bilateral subdural hematomas SNOMED Code(s): 79650309 Code(s): S06.5X9A - TRAUM SUBDR HEM W LOC OF UNSP DURATION, INIT Status: Chronic Priority: Medium Current Visit: No (4) 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 SNOMED Code(s): 73474658 Code(s): I67.2 - CEREBRAL ATHEROSCLEROSIS; Z86.73 - PRSNL HX OF TIA (TIA), AND CEREB INFRC W/O RESID DEFICITS Status: Chronic Priority: Medium Current Visit: No (5) Cervical radiculopathy SNOMED Code(s): 49514232 Code(s): M54.12 - RADICULOPATHY, CERVICAL REGION Status: Chronic Priority : Medium Current Visit: No (6) Congestive heart failure SNOMED Code(s): 13737136 Code(s): I50.9 - HEART FAILURE, UNSPECIFIED Status: Chronic Priority: Medium Current Visit: No Qualifiers: Heart failure type: unspecified Heart failure chronicity: acute on chronic Qualified Code(s): I50.9 - Heart failure, unspecified (7) Fall SNOMED Code(s): 6419580, 774425889 Code(s): W19.XXXA - UNSPECIFIED FALL, INITIAL ENCOUNTER Status: Acute Priority: High Current Visit: Yes Qualifiers: Encounter type: initial encounter Qualified Code(s): W19.XXXA - Unspecified fall, initial encounter - Problem List Review Problem List Initiated/Reviewed/Updated: Yes - My Orders Last 24 Hours: My Active Orders 02/14/19 21:00 Metoprolol Tartrate [Lopressor] 25 mg PO BID 02/14/19 23:59 EKG 12 Lead [EK] Stat 02/15/19 16:18 Magnesium Sulfate/Water [Magnesium Sulfate 2 GM in Water 50 ML] 2 gm Premix Bag 1 bag IV ONETIME 02/15/19 Dinner Clear Liquid Diet [DIET] 02/16/19 05:00 BMP [BASIC METABOLIC PANEL,BMP] [CHEM] DAILY CBC WITH AUTO DIFF [HEME] DAILY CRP [C-REACTIVE PROTEIN] [CHEM] DAILY MAGNESIUM [CHEM] DAILY 02/17/19 05:00 BMP [BASIC METABOLIC PANEL,BMP] [CHEM] DAILY CBC WITH AUTO DIFF [HEME] DAILY CRP [C-REACTIVE PROTEIN] [CHEM] DAILY 02/18/19 05:00 BMP [BASIC METABOLIC PANEL,BMP] [CHEM] DAILY CBC WITH AUTO DIFF [HEME] DAILY CRP [C-REACTIVE PROTEIN] [CHEM] DAILY 02/19/19 05:00 BMP [BASIC METABOLIC PANEL,BMP] [CHEM] DAILY CBC WITH AUTO DIFF [HEME] DAILY CRP [C-REACTIVE PROTEIN] [CHEM] DAILY - Plan Plan:: Impression: --S/P fall without LOC; right hip fracture, 02/11/19. Post-op, POD 1-->Cephalomedullary nailing of the right hip --Acute subdural hematoma, left parietal region on 01/16/19 Minimally displaced fracture, left greater trochanteric proximal femur, 01/16/19. Nonsurgical treatment for left LE. --History of CVAs CT of head without bleed, 02/11/19. Tolerating ASA for DVT prophylaxis --Hypotension, resolved Chronic HTN Subdural hematoma, traumatic BPH Plan: Daily Labs Pain mgt IV fluids as ordered Cautious anticoagulation with history of subdural hematoma; -starting ASA 325 mg daily; repeat CT of head as OP on 02/22/19. Home meds Ortho surgery, 02/12/19 Consult CM/SW/PT/OT. SNF placement LOS>96 hours post op, ortho surgery, will need placement.
[2019-02-15] MEDS: Rosuvastatin 10 MG Tab PO SCH (20:11)
[2019-02-16] MEDS: Acetaminophen 325 MG Tab PO PRN ×3 (05:13→18:04)
[2019-02-16] MEDS: Sodium Chloride 0.9% 1,000 ML IV SCH (05:15)
[2019-02-16] MEDS: metFORMIN 500 MG Tab PO SCH ×2 (06:23→18:03)
[2019-02-16] MEDS: Insulin Lispro 100 Units/ML 3 ML Vial SUBCUT SCH ×4 (06:43→21:41)
--- NOTE | 2019-02-16 07:19 | PCM.PN ---
- General Info Date of Service: 02/16/19 Admission Dx/Problem (Free Text): Admission Diagnosis/Problem Admission Diagnosis/Problem Intertrochanteric fracture of right femur Subjective Update: In to see Tate. Family is at bedside. Updated on progress. Family reports they feel he has been somewhat confused and this is a change for him. Discussed sundowning, which is the likely cause. CT of head obtained and is negative. His Hgb is low today and we will give him 2 units. Discharge in 24-48hours. He continues working with PT/OT. Functional Status: Reports: Pain Controlled, Tolerating Diet, Ambulating, Urinating. Denies: New Symptoms - Review of Systems General: Reports: Weakness, Fatigue. Denies: Fever, Malaise, Chills HEENT: Reports: No Symptoms. Denies: Headaches, Sore Throat Pulmonary: Reports: No Symptoms. Denies: Shortness of Breath, Cough, Sputum, Wheezing Cardiovascular: Reports: No Symptoms. Denies: Chest Pain, Palpitations, Dyspnea on Exertion, Edema Gastrointestinal: Reports: No Symptoms. Denies: Abdominal Pain, Constipation, Diarrhea, Nausea, Vomiting Genitourinary: Denies: Pain Musculoskeletal: Reports: Leg Pain Skin: Reports: No Symptoms Neurological: Reports: No Symptoms. Denies: Confusion (None currently - comes and goes per family. Suggestive of sundowning ) Psychiatric: Reports: No Symptoms - Patient Data Vitals - Most Recent: Last Vital Signs Temp 98.8 F 02/16/19 03:45 Pulse 91 02/16/19 03:45 Resp 18 02/16/19 03:45 BP 157/62 H 02/16/19 03:45 Pulse Ox 95 02/16/19 03:45 Weight - Most Recent: 192 lb 6.4 oz I&O - Last 24 Hours: Intake & Output 02/15/19 02/16/19 02/16/19 22:59 06:59 14:59 Intake Total 1110 2263 Output Total 400 1125 Balance 710 1138 Lab Results Last 24 Hours: Laboratory Results - last 24 hr 02/15/19 02/15/19 02/15/19 Range/Units 10:42 11:20 16:49 WBC (4.23-9.07) K/mm3 RBC (4.63-6.08) M/mm3 Hgb 9.5 L (13.7-17.5) gm/L Hct (40.1-51.0) % MCV (79.0-92.2) fl MCH (25.7-32.2) pg MCHC (32.2-35.5) g/dl RDW Std Deviation (35.1-43.9) fL Plt Count (163-337) K/mm3 MPV (9.4-12.3) fl Neut % (Auto) (34.0-67.9) % Lymph % (Auto) (21.8-53.1) % [place] % (Auto) (5.3-12.2) % Eos % (Auto) (0.8-7.0) Baso % (Auto) (0.1-1.2) % Neut # (Auto) (1.78-5.38) K/mm3 Lymph # (Auto) (1.32-3.57) K/mm3 [place] # (Auto) (0.30-0.82) K/mm3 Eos # (Auto) (0.04-0.54) K/mm3 Baso # (Auto) (0.01-0.08) K/mm3 Manual Slide Review Sodium (136-145) mEq/L Potassium (3.5-5.1) mEq/L Chloride (98-107) mEq/L Carbon Dioxide (21-32) mEq/L Anion Gap (5-15) BUN (7-18) mg/dL Creatinine (0.7-1.3) mg/dL Est Cr Clr Drug Dosing mL/min Estimated GFR (MDRD) (>60) mL/min BUN/Creatinine Ratio (14-18) Glucose (83-115) mg/dL POC Glucose 170 H 158 H (83-110) mg/dL Calcium (8.5-10.1) mg/dL Magnesium (1.8-2.4) mg/dl C-Reactive Protein (<1.0) mg/dL 02/15/19 02/15/19 02/16/19 Range/Units 20:22 21:53 04:59 WBC (4.23-9.07) K/mm3 RBC (4.63-6.08) M/mm3 Hgb (13.7-17.5) gm/L Hct (40.1-51.0) % MCV (79.0-92.2) fl MCH (25.7-32.2) pg MCHC (32.2-35.5) g/dl RDW Std Deviation (35.1-43.9) fL Plt Count (163-337) K/mm3 MPV (9.4-12.3) fl Neut % (Auto) (34.0-67.9) % Lymph % (Auto) (21.8-53.1) % [place] % (Auto) (5.3-12.2) % Eos % (Auto) (0.8-7.0) Baso % (Auto) (0.1-1.2) % Neut # (Auto) (1.78-5.38) K/mm3 Lymph # (Auto) (1.32-3.57) K/mm3 [place] # (Auto) (0.30-0.82) K/mm3 Eos # (Auto) (0.04-0.54) K/mm3 Baso # (Auto) (0.01-0.08) K/mm3 Manual Slide Review Sodium 141 (136-145) mEq/L Potassium 3.9 (3.5-5.1) mEq/L Chloride 108 H (98-107) mEq/L Carbon Dioxide 25 (21-32) mEq/L Anion Gap 11.9 (5-15) BUN 11 (7-18) mg/dL Creatinine 0.6 L (0.7-1.3) mg/dL Est Cr Clr Drug Dosing 90.01 mL/min Estimated GFR (MDRD) > 60 (>60) mL/min BUN/Creatinine Ratio 18.3 H (14-18) Glucose 114 (83-115) mg/dL POC Glucose 128 H 165 H (83-110) mg/dL Calcium 7.5 L (8.5-10.1) mg/dL Magnesium 1.8 (1.8-2.4) mg/dl C-Reactive Protein 15.8 H* (<1.0) mg/dL 02/16/19 02/16/19 Range/Units 04:59 06:19 WBC 6.39 (4.23-9.07) K/mm3 RBC 2.60 L (4.63-6.08) M/mm3 Hgb 7.8 L (13.7-17.5) gm/L Hct 24.6 L (40.1-51.0) % MCV 94.6 H (79.0-92.2) fl MCH 30.0 (25.7-32.2) pg MCHC 31.7 L (32.2-35.5) g/dl RDW Std Deviation 45.4 H (35.1-43.9) fL Plt Count 136 L (163-337) K/mm3 MPV 12.1 (9.4-12.3) fl Neut % (Auto) 66.5 (34.0-67.9) % Lymph % (Auto) 21.0 L (21.8-53.1) % [place] % (Auto) 10.0 (5.3-12.2) % Eos % (Auto) 2.0 (0.8-7.0) Baso % (Auto) 0.3 (0.1-1.2) % Neut # (Auto) 4.25 (1.78-5.38) K/mm3 Lymph # (Auto) 1.34 (1.32-3.57) K/mm3 [place] # (Auto) 0.64 (0.30-0.82) K/mm3 Eos # (Auto) 0.13 (0.04-0.54) K/mm3 Baso # (Auto) 0.02 (0.01-0.08) K/mm3 Manual Slide Review Abnormal smear Sodium (136-145) mEq/L Potassium (3.5-5.1) mEq/L Chloride (98-107) mEq/L Carbon Dioxide (21-32) mEq/L Anion Gap (5-15) BUN (7-18) mg/dL Creatinine (0.7-1.3) mg/dL Est Cr Clr Drug Dosing mL/min Estimated GFR (MDRD) (>60) mL/min BUN/Creatinine Ratio (14-18) Glucose (83-115) mg/dL POC Glucose 128 H (83-110) mg/dL Calcium (8.5-10.1) mg/dL Magnesium (1.8-2.4) mg/dl C-Reactive Protein (<1.0) mg/dL Med Orders - Current: Current Medications Acetaminophen (Tylenol) 650 mg PO Q6H PRN PRN Reason: Pain/Fever Last Admin: 02/16/19 05:13 Dose: 650 mg Hydrocodone Bitart/Acetaminophen ([place] 325-5 Mg) 1 tab PO Q4H PRN PRN Reason: Pain (moderate 4-6) Last Admin: 02/14/19 16:58 Dose: 1 tab Aspirin (Ecotrin) 325 mg PO BID [facility] Last Admin: 02/15/19 20:11 Dose: 325 mg Dextrose/Water (Dextrose 50% In Water) 50 ml IVPUSH ASDIRECTED PRN PRN Reason: Hypoglycemia Famotidine (Pepcid) 20 mg PO BID [facility] Last Admin: 02/15/19 20:11 Dose: 20 mg Finasteride (Proscar) 5 mg PO DAILY [facility] Last Admin: 02/15/19 08:10 Dose: 5 mg Hydralazine HCl (Apresoline) 10 mg IVPUSH Q6H PRN PRN Reason: Hypertension Hydromorphone HCl (Dilaudid) 0.5 mg IVPUSH Q4H PRN PRN Reason: Pain (moderate 4-6) Last Admin: 02/14/19 23:55 Dose: 0.5 mg Hydromorphone HCl (Dilaudid) 0.5 mg IVPUSH Q6H PRN PRN Reason: Pain (severe 7-10) Sodium Chloride (Normal Saline) 1,000 mls @ 75 mls/hr IV ASDIRECTED [facility] Last Admin: 02/16/19 05:15 Dose: 75 mls/hr Insulin Human Lispro (Humalog) 0 unit SUBCUT QIDACANDBED [facility]; Protocol Last Admin: 02/16/19 06:43 Dose: Not Given Levetiracetam (Keppra) 500 mg PO BID [facility] Last Admin: 02/15/19 20:11 Dose: 500 mg Met[facility]uc[facility]) [facility] Last Admin: 02/16/19 06:23 Dose: 250 mg Metoprolol Tartrate (Lopressor) 5 mg IVPUSH Q6H PRN PRN Reason: HR>110 Last Admin: 02/14/19 23:47 Dose: 5 mg Metoprolol Tartrate (Lopressor) 25 mg PO BID [facility] Last Admin: 02/15/19 20:12 Dose: 25 mg Oxycodone/Acetaminophen (Percocet 325-5 Mg) 1 - 2 tab PO Q4H PRN PRN Reason: Pain (severe 7-10) Last Admin: 02/15/19 03:19 Dose: 2 tab Rosuvastatin Calcium (Crestor) 10 mg PO BEDTIME [facility] Last Admin: 02/15/19 20:11 Dose: 10 mg Senna (Senna) 8.6 mg PO DAILY [facility] Last Admin: 02/15/19 08:12 Dose: Not Given Sertraline HCl (Zoloft) 25 mg PO DAILY [facility] Last Admin: 02/15/19 08:10 Dose: 25 mg Tamsulosin HCl (Flomax) 0.4 mg PO BID [facility] Last Admin: 02/15/19 20:11 Dose: 0.4 mg Timolol Maleate (Timoptic 0.5% Ophth Soln) 0 ml EYEBOTH DAILY [facility] Last Admin: 02/15/19 08:24 Dose: 1 drop Discontinued Medications Hydrocodone Bitart/Acetaminophen ([place] 325-5 Mg) 1 tab PO Q6H PRN PRN Reason: Pain (moderate 4-6) Last Admin: 02/12/19 13:11 Dose: 1 tab Al Hydroxide/Mg Hydroxide (Mag-Al Plus) 15 ml PO TID@0800,1200,1700 [facility] Last Admin: 02/15/19 07:41 Dose: Not Given Bupivacaine HCl (Marcaine 0.25%) Confirm Administered Dose 30 ml .ROUTE .STK- MED ONE Stop: 02/12/19 06:29 Last Admin: 02/12/19 08:55 Dose: 20 ml Bupivacaine HCl (Sensorcaine-Mpf 0.75%) Confirm Administered Dose 30 ml .ROUTE .STK-MED ONE Stop: 02/12/19 07:08 Dexamethasone (Dexamethasone) Confirm Administered Dose 4 mg .ROUTE .STK-MED ONE Stop: 02/12/19 08:20 Ephedrine Sulfate (Ephedrine In Ns) Confirm Administered Dose 25 mg .ROUTE .STK- MED ONE Stop: 02/12/19 08:19 Fentanyl (Sublimaze) Confirm Administered Dose 100 mcg .ROUTE .STK-MED ONE Stop: 02/12/19 07:02 Fentanyl (Sublimaze) 50 mcg IVPUSH Q5M PRN PRN Reason: Pain Stop: 02/12/19 12:00 Hydromorphone HCl (Dilaudid) 0.5 mg IVPUSH ONETIME ONE Stop: 02/11/19 14:21 Last Admin: 02/11/19 14:22 Dose: 0.5 mg Hydromorphone HCl (Dilaudid) Confirm Administered Dose 0.5 mg .ROUTE .STK-MED ONE Stop: 02/11/19 14:20 Last Admin: 02/11/19 14:26 Dose: Not Given Hydromorphone HCl (Dilaudid) 0.5 mg IVPUSH NOW STA Stop: 02/11/19 14:21 Last Admin: 02/11/19 14:47 Dose: 0.5 mg Hydromorphone HCl (Dilaudid) 0.5 mg IVPUSH ONETIME STA Stop: 02/11/19 15:57 Last Admin: 02/11/19 16:00 Dose: 0.5 mg Hydromorphone HCl (Dilaudid) Confirm Administered Dose 0.5 mg .ROUTE .STK-MED ONE Stop: 02/11/19 16:00 Last Admin: 02/11/19 18:29 Dose: Not Given Hydromorphone HCl (Dilaudid) Confirm Administered Dose 0.5 mg .ROUTE .STK-MED ONE Stop: 02/11/19 18:50 Last Admin: 02/11/19 19:03 Dose: Not Given Hydromorphone HCl (Dilaudid) 0.5 mg IVPUSH ONETIME STA Stop: 02/11/19 18:46 Last Admin: 02/11/19 18:45 Dose: 0.5 mg Hydromorphone HCl (Dilaudid) 0.5 mg IVPUSH Q4H PRN PRN Reason: Pain (moderate 4-6) Hydromorphone HCl (Dilaudid) 0.5 mg IVPUSH Q15M PRN PRN Reason: severe pain Stop: 02/12/19 12:00 Sodium Chloride (Sodium Chloride 0.45%) 1,000 mls @ 75 mls/hr IV ASDIRECTED [facility] Stop: 02/12/19 02:45 Last Admin: 02/11/19 22:32 Dose: 75 mls/hr Lidocaine HCl (Xylocaine-Mpf 1%) Confirm Administered Dose 4 mls @ as directed .ROUTE .STK-MED ONE Stop: 02/12/19 07:03 Lidocaine HCl (Xylocaine-Mpf 1%) Confirm Administered Dose 5 mls @ as directed .ROUTE .STK-MED ONE Stop: 02/12/19 07:08 Clindamycin Phosphate 900 mg/ (Sodium Chloride) 106 mls @ 212 mls/hr IV ONETIME ONE Stop: 02/12/19 08:14 Last Admin: 02/12/19 17:58 Dose: Not Given Lactated Ringer's (Ringers, Lactated) 1,000 mls @ 125 mls/hr IV ASDIRECTED [facility] Last Admin: 02/12/19 14:01 Dose: 125 mls/hr Clindamycin Phosphate 900 mg/ (Sodium Chloride) 106 mls @ 212 mls/hr IV Q6H [facility] Stop: 02/13/19 08:29 Last Admin: 02/13/19 09:27 Dose: 212 mls/hr Sodium Chloride (Normal Saline) 250 mls @ 999 mls/hr IV ONETIME ONE Stop: 02/13/19 11:00 Last Admin: 02/13/19 10:51 Dose: 999 mls/hr Sodium Chloride (Normal Saline) 1,000 mls @ 100 mls/hr IV ASDIRECTED [facility] Last Admin: 02/13/19 11:12 Dose: 100 mls/hr Magnesium Sulfate 4 gm/ Premix 50 mls @ 12.5 mls/hr IV ONETIME ONE Stop: 02/13/19 18:14 Last Admin: 02/13/19 15:39 Dose: 12.5 mls/hr Magnesium Sulfate 2 gm/ Premix 50 mls @ 25 mls/hr IV ONETIME ONE Stop: 02/14/19 12:32 Last Admin: 02/14/19 12:06 Dose: 25 mls/hr Magnesium Sulfate 2 gm/ Premix 50 mls @ 25 mls/hr IV ONETIME ONE Stop: 02/15/19 18:17 Last Admin: 02/15/19 16:56 Dose: 25 mls/hr Ketamine HCl (Ketalar) Confirm Administered Dose 500 mg .ROUTE .STK-MED ONE Stop: 02/12/19 07:02 Ketorolac Tromethamine (Toradol) 15 mg IVPUSH ONETIME ONE Stop: 02/12/19 14:54 Last Admin: 02/12/19 15:10 Dose: 15 mg Magnesium Hydroxide (Milk Of Magnesia) 30 ml PO ONETIME ONE Stop: 02/14/19 08:31 Last Admin: 02/14/19 09:01 Dose: 30 ml Metoprolol Tartrate (Lopressor) 12.5 mg PO BID [facility] Last Admin: 02/14/19 08:58 Dose: 12.5 mg Midazolam HCl (Versed 1 Mg/Ml) Confirm Administered Dose 2 mg .ROUTE .STK-MED ONE Stop: 02/12/19 07:02 Ondansetron HCl (Zofran) Confirm Administered Dose 4 mg .ROUTE .STK-MED ONE Stop: 02/12/19 08:20 Phenylephrine HCl (Phenylephrine In Ns 100 Mcg/Ml) Confirm Administered Dose 1 mg .ROUTE .STK-MED ONE Stop: 02/12/19 08:19 Propofol (Diprivan 20 Ml) Confirm Administered Dose 600 mg .ROUTE .STK-MED ONE Stop: 02/12/19 07:02 Tamsulosin HCl (Flomax) 0.4 mg PO BEDTIME [facility] Last Admin: 02/13/19 21:57 Dose: 0.4 mg - Exam Quality Assessment: DVT Prophylaxis General: Alert, Oriented, Cooperative, No Acute Distress HEENT: Pupils Equal, Pupils Reactive, EOMI, Mucous Membr. Moist/[place] Neck: Supple, Trachea Midline Lungs: Clear to Auscultation, Normal Respiratory Effort Cardiovascular: Regular Rate, Regular Rhythm GI/Abdominal Exam: Normal Bowel Sounds, Soft, Non-Tender, No Organomegaly, No Distention, Pelvis Stable (Male) Exam: Deferred Back Exam: Normal Inspection, Full Range of Motion Extremities: No Pedal Edema, Normal Capillary Refill, Leg Pain, Limited Range of Motion, Other (Bandage in place. Cooling pack in place. ) Peripheral Pulses: 2+: Radial (L), Radial (R), Dorsalis Pedis (L), Dorsalis Pedis (R) Skin: Warm, Dry, Intact Neurological: No New Focal Deficit Psy/Mental Status: Alert, Normal Affect, Normal Mood - Problem List & Annotations (1) Hypertension SNOMED Code(s): 57110748 Code(s): I10 - ESSENTIAL (PRIMARY) HYPERTENSION Status: Chronic Priority : Medium Current Visit: Yes Qualifiers: Hypertension type: essential hypertension Qualified Code(s): I10 - Essential (primary) hypertension (2) Intertrochanteric fracture, hip SNOMED Code(s): 469559811 Code(s): S72.143A - DISPLACED INTERTROCHANTERIC FRACTURE OF UNSP FEMUR, INIT Status: Acute Priority: High Current Visit: Yes (3) Congestive heart failure SNOMED Code(s): 72724452 Code(s): I50.9 - HEART FAILURE, UNSPECIFIED Status: Chronic Priority: Medium Current Visit: No Qualifiers: Heart failure type: unspecified Heart failure chronicity: acute on chronic Qualified Code(s): I50.9 - Heart failure, unspecified (4) Fall SNOMED Code(s): 1735115, 228735938 Code(s): W19.XXXA - UNSPECIFIED FALL, INITIAL ENCOUNTER Status: Acute Priority: High Current Visit: Yes Qualifiers: Encounter type: initial encounter Qualified Code(s): W19.XXXA - Unspecified fall, initial encounter (5) Bilateral subdural hematomas SNOMED Code(s): 39808975 Code(s): S06.5X9A - TRAUM SUBDR HEM W LOC OF UNSP DURATION, INIT Status: Chronic Priority: Medium Current Visit: No (6) 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 Post-op, POD 3-->Cephalomedullary nailing of the right hip --Acute subdural hematoma, left parietal region on 01/16/19 Minimally displaced fracture, left greater trochanteric proximal femur, 01/16/19. Nonsurgical treatment for left LE. --History of CVAs CT of head without bleed, 02/11/19. Tolerating ASA for DVT prophylaxis Repeat CT 02/16/19 negative --Hypotension, resolved --Post-operative anemia -Hgb 7.8 today -Infuse 2 units with 40mg lasix in between --Left epistaxis -[place]-synephrine applied -Hold ASA tonight Chronic HTN Subdural hematoma, traumatic BPH Plan: Daily Labs Pain mgt IV fluids as ordered Cautious anticoagulation with history of subdural hematoma; -starting ASA 325 mg daily; repeat CT of head as OP on 02/22/19. Home meds Ortho surgery, 02/12/19 Consult CM/SW/PT/OT. SNF placement LOS>96 hours post op, ortho surgery, will need placement.
--- NOTE | 2019-02-16 10:04 | PCM.OPNOTE ---
- General Post-Op/Procedure Note Date of Surgery/Procedure: 02/12/19 Operative Procedure(s): cephalomedullary nailing of right intertrochanteric hip fracture Pre Op Diagnosis: right intertrochaneric hip fracture Post-Op Diagnosis: Same Anesthesia Technique: Local, MAC, Spinal Primary Surgeon: Shubham Bray Anesthesia Provider: Lety Loera Final Inspector Balance Wheel: Janine Ann EBL in mLs: 100 Complications: None Condition: Stable Free Text/Narrative:: Intake & Output 02/15/19 02/16/19 02/16/19 22:59 06:59 14:59 Intake Total 1110 2263 Output Total 400 1125 Balance 710 1138
[2019-02-16] MEDS ORDERED: Sodium Chloride 0.9% 250 ML ONE (10:08)
[2019-02-16] MEDS ORDERED: Sodium Chloride 0.9% 250 ML IV SCH (10:15)
[2019-02-16] MEDS: Sennosides 8.6 MG Tab PO SCH (10:29)
[2019-02-16] MEDS: Timolol Maleate 0.5% Ophth Soln 5 ML Bottle EYEBOTH SCH (10:29)
[2019-02-16] MEDS: Finasteride 5 MG Tab PO SCH (10:29)
[2019-02-16] MEDS: Sertraline 25 MG Tab PO SCH (10:29)
[2019-02-16] MEDS: Tamsulosin 0.4 MG Cap.ER PO SCH ×2 (10:29→21:40)
[2019-02-16] MEDS: Metoprolol Tartrate 25 MG Tab PO SCH ×2 (10:29→21:40)
[2019-02-16] MEDS: levETIRAcetam 500 MG Tab PO SCH ×2 (10:30→21:40)
[2019-02-16] MEDS: Famotidine 20 MG Tab PO SCH ×2 (10:30→21:40)
--- NOTE | 2019-02-16 10:34 | CT ---
Head CT Technique: Multiple axial sections through the brain were obtained. Intravenous contrast was not utilized. Comparison: Previous head CT study of 02/11/19. Findings: Old infarct is noted within the right occipital lobe causing ex vacuole enlargement of the posterior right lateral ventricle. Previous bur holes are noted. Ventricles along with basal cisterns and sulci over the convexities are moderately prominent. Old lacunar infarct is noted within the left basal ganglia. Mild areas of diminished density are noted within the periventricular white matter compatible with small vessel ischemic demyelination change. No evidence of intracranial hemorrhage. No midline shift is seen. Bone window settings show no acute calvarial abnormality. Visualized sinuses are clear. Impression: 1. Senescent change as noted above. No significant change from prior head CT study. Nothing acute is identified. Diagnostic code #2
--- NOTE | 2019-02-16 11:39 | PCM.SURGPN ---
- General Info Date of Service: 02/16/19 POD#: 4 Functional Status: Reports: Pain Controlled, Tolerating Diet, Urinating, Incentive Spirometry (The pt ), Other (The pt is progressing slowly with therapies. He is receiving blood transfusion today.) - Patient Data Vitals - Most Recent: Last Vital Signs Temp 98.5 F 02/16/19 11:20 Pulse 92 02/16/19 10:29 Resp 20 02/16/19 11:20 BP 125/66 02/16/19 11:20 Pulse Ox 97 02/16/19 11:20 Weight - Most Recent: 192 lb 6.4 oz I&O - Last 24 Hours: Intake & Output 02/15/19 02/16/19 02/16/19 22:59 06:59 14:59 Intake Total 1110 2263 240 Output Total 400 1125 Balance 710 1138 240 Lab Results Last 24 Hrs: Laboratory Results - last 24 hr 02/15/19 02/15/19 02/15/19 Range/Units 16:49 20:22 21:53 WBC (4.23-9.07) K/mm3 RBC (4.63-6.08) M/mm3 Hgb (13.7-17.5) gm/L Hct (40.1-51.0) % MCV (79.0-92.2) fl MCH (25.7-32.2) pg MCHC (32.2-35.5) g/dl RDW Std Deviation (35.1-43.9) fL Plt Count (163-337) K/mm3 MPV (9.4-12.3) fl Neut % (Auto) (34.0-67.9) % Lymph % (Auto) (21.8-53.1) % [place] % (Auto) (5.3-12.2) % Eos % (Auto) (0.8-7.0) Baso % (Auto) (0.1-1.2) % Neut # (Auto) (1.78-5.38) K/mm3 Lymph # (Auto) (1.32-3.57) K/mm3 [place] # (Auto) (0.30-0.82) K/mm3 Eos # (Auto) (0.04-0.54) K/mm3 Baso # (Auto) (0.01-0.08) K/mm3 Manual Slide Review Sodium (136-145) mEq/L Potassium (3.5-5.1) mEq/L Chloride (98-107) mEq/L Carbon Dioxide (21-32) mEq/L Anion Gap (5-15) BUN (7-18) mg/dL Creatinine (0.7-1.3) mg/dL Est Cr Clr Drug Dosing mL/min Estimated GFR (MDRD) (>60) mL/min BUN/Creatinine Ratio (14-18) Glucose (83-115) mg/dL POC Glucose 158 H 128 H 165 H (83-110) mg/dL Calcium (8.5-10.1) mg/dL Magnesium (1.8-2.4) mg/dl C-Reactive Protein (<1.0) mg/dL Urine Color (Yellow) Urine Appearance (Clear) Urine pH (5.0-8.0) Ur Specific [place] (1.005-1.030) Urine Protein (Negative) Urine Glucose (UA) (Negative) Urine Ketones (Negative) Urine Occult Blood (Negative) Urine Nitrite (Negative) Urine Bilirubin (Negative) Urine Urobilinogen (0.2-1.0) Ur Leukocyte Esterase (Negative) Urine RBC (0-5) /hpf Urine WBC (0-5) /hpf Ur Epithelial Cells (0-5) /hpf Urine Bacteria (FEW) /hpf Urine Mucus (FEW) /hpf Blood Type Gel Antibody Screen Crossmatch 02/16/19 02/16/19 02/16/19 Range/Units 04:59 04:59 04:59 WBC 6.39 (4.23-9.07) K/mm3 RBC 2.60 L (4.63-6.08) M/mm3 Hgb 7.8 L (13.7-17.5) gm/L Hct 24.6 L (40.1-51.0) % MCV 94.6 H (79.0-92.2) fl MCH 30.0 (25.7-32.2) pg MCHC 31.7 L (32.2-35.5) g/dl RDW Std Deviation 45.4 H (35.1-43.9) fL Plt Count 136 L (163-337) K/mm3 MPV 12.1 (9.4-12.3) fl Neut % (Auto) 66.5 (34.0-67.9) % Lymph % (Auto) 21.0 L (21.8-53.1) % [place] % (Auto) 10.0 (5.3-12.2) % Eos % (Auto) 2.0 (0.8-7.0) Baso % (Auto) 0.3 (0.1-1.2) % Neut # (Auto) 4.25 (1.78-5.38) K/mm3 Lymph # (Auto) 1.34 (1.32-3.57) K/mm3 [place] # (Auto) 0.64 (0.30-0.82) K/mm3 Eos # (Auto) 0.13 (0.04-0.54) K/mm3 Baso # (Auto) 0.02 (0.01-0.08) K/mm3 Manual Slide Review Abnormal smear Sodium 141 (136-145) mEq/L Potassium 3.9 (3.5-5.1) mEq/L Chloride 108 H (98-107) mEq/L Carbon Dioxide 25 (21-32) mEq/L Anion Gap 11.9 (5-15) BUN 11 (7-18) mg/dL Creatinine 0.6 L (0.7-1.3) mg/dL Est Cr Clr Drug Dosing 90.01 mL/min Estimated GFR (MDRD) > 60 (>60) mL/min BUN/Creatinine Ratio 18.3 H (14-18) Glucose 114 (83-115) mg/dL POC Glucose (83-110) mg/dL Calcium 7.5 L (8.5-10.1) mg/dL Magnesium 1.8 (1.8-2.4) mg/dl C-Reactive Protein 15.8 H* (<1.0) mg/dL Urine Color (Yellow) Urine Appearance (Clear) Urine pH (5.0-8.0) Ur Specific [place] (1.005-1.030) Urine Protein (Negative) Urine Glucose (UA) (Negative) Urine Ketones (Negative) Urine Occult Blood (Negative) Urine Nitrite (Negative) Urine Bilirubin (Negative) Urine Urobilinogen (0.2-1.0) Ur Leukocyte Esterase (Negative) Urine RBC (0-5) /hpf Urine WBC (0-5) /hpf Ur Epithelial Cells (0-5) /hpf Urine Bacteria (FEW) /hpf Urine Mucus (FEW) /hpf Blood Type A POSITIVE Gel Antibody Screen Negative Crossmatch See Detail 02/16/19 02/16/19 02/16/19 Range/Units 05:00 06:19 11:07 WBC (4.23-9.07) K/mm3 RBC (4.63-6.08) M/mm3 Hgb (13.7-17.5) gm/L Hct (40.1-51.0) % MCV (79.0-92.2) fl MCH (25.7-32.2) pg MCHC (32.2-35.5) g/dl RDW Std Deviation (35.1-43.9) fL Plt Count (163-337) K/mm3 MPV (9.4-12.3) fl Neut % (Auto) (34.0-67.9) % Lymph % (Auto) (21.8-53.1) % [place] % (Auto) (5.3-12.2) % Eos % (Auto) (0.8-7.0) Baso % (Auto) (0.1-1.2) % Neut # (Auto) (1.78-5.38) K/mm3 Lymph # (Auto) (1.32-3.57) K/mm3 [place] # (Auto) (0.30-0.82) K/mm3 Eos # (Auto) (0.04-0.54) K/mm3 Baso # (Auto) (0.01-0.08) K/mm3 Manual Slide Review Sodium (136-145) mEq/L Potassium (3.5-5.1) mEq/L Chloride (98-107) mEq/L Carbon Dioxide (21-32) mEq/L Anion Gap (5-15) BUN (7-18) mg/dL Creatinine (0.7-1.3) mg/dL Est Cr Clr Drug Dosing mL/min Estimated GFR (MDRD) (>60) mL/min BUN/Creatinine Ratio (14-18) Glucose (83-115) mg/dL POC Glucose 128 H 205 H (83-110) mg/dL Calcium (8.5-10.1) mg/dL Magnesium (1.8-2.4) mg/dl C-Reactive Protein (<1.0) mg/dL Urine Color Yellow (Yellow) Urine Appearance Clear (Clear) Urine pH 7.0 (5.0-8.0) Ur Specific [place] 1.020 (1.005-1.030) Urine Protein Negative (Negative) Urine Glucose (UA) Negative (Negative) Urine Ketones 1+ H (Negative) Urine Occult Blood Negative (Negative) Urine Nitrite Negative (Negative) Urine Bilirubin Negative (Negative) Urine Urobilinogen 1.0 (0.2-1.0) Ur Leukocyte Esterase Negative (Negative) Urine RBC 0-5 (0-5) /hpf Urine WBC 0-5 (0-5) /hpf Ur Epithelial Cells 0-5 (0-5) /hpf Urine Bacteria Rare (FEW) /hpf Urine Mucus Moderate H (FEW) /hpf Blood Type Gel Antibody Screen Crossmatch Med Orders - Current: Current Medications Acetaminophen (Tylenol) 650 mg PO Q6H PRN PRN Reason: Pain/Fever Last Admin: 02/16/19 05:13 Dose: 650 mg Hydrocodone Bitart/Acetaminophen ([place] 325-5 Mg) 1 tab PO Q4H PRN PRN Reason: Pain (moderate 4-6) Last Admin: 02/14/19 16:58 Dose: 1 tab Aspirin (Ecotrin) 325 mg PO BID [facility] Last Admin: 02/15/19 20:11 Dose: 325 mg Dextrose/Water (Dextrose 50% In Water) 50 ml IVPUSH ASDIRECTED PRN PRN Reason: Hypoglycemia Famotidine (Pepcid) 20 mg PO BID [facility] Last Admin: 02/16/19 10:30 Dose: 20 mg Finasteride (Proscar) 5 mg PO DAILY [facility] Last Admin: 02/16/19 10:29 Dose: 5 mg Hydralazine HCl (Apresoline) 10 mg IVPUSH Q6H PRN PRN Reason: Hypertension Hydromorphone HCl (Dilaudid) 0.5 mg IVPUSH Q4H PRN PRN Reason: Pain (moderate 4-6) Last Admin: 02/14/19 23:55 Dose: 0.5 mg Hydromorphone HCl (Dilaudid) 0.5 mg IVPUSH Q6H PRN PRN Reason: Pain (severe 7-10) Sodium Chloride (Normal Saline) 1,000 mls @ 75 mls/hr IV ASDIRECTED [facility] Last Admin: 02/16/19 05:15 Dose: 75 mls/hr Sodium Chloride (Normal Saline) 250 mls @ 125 mls/hr IV ASDIRECTED [facility] Stop: 02/16/19 23:00 Insulin Human Lispro (Humalog) 0 unit SUBCUT QIDACANDBED [facility]; Protocol Last Admin: 02/16/19 06:43 Dose: Not Given Levetiracetam (Keppra) 500 mg PO BID [facility] Last Admin: 02/16/19 10:30 Dose: 500 mg Metformin HCl (Glucophage) 250 mg PO BIDMEALS [facility] Last Admin: 02/16/19 06:23 Dose: 250 mg Metoprolol Tartrate (Lopressor) 5 mg IVPUSH Q6H PRN PRN Reason: HR>110 Last Admin: 02/14/19 23:47 Dose: 5 mg Metoprolol Tartrate (Lopressor) 25 mg PO BID [facility] Last Admin: 02/16/19 10:29 Dose: 25 mg Oxycodone/Acetaminophen (Percocet 325-5 Mg) 1 - 2 tab PO Q4H PRN PRN Reason: Pain (severe 7-10) Last Admin: 02/15/19 03:19 Dose: 2 tab Rosuvastatin Calcium (Crestor) 10 mg PO BEDTIME [facility] Last Admin: 02/15/19 20:11 Dose: 10 mg Senna (Senna) 8.6 mg PO DAILY [facility] Last Admin: 02/16/19 10:29 Dose: 8.6 mg Sertraline HCl (Zoloft) 25 mg PO DAILY [facility] Last Admin: 02/16/19 10:29 Dose: 25 mg Tamsulosin HCl (Flomax) 0.4 mg PO BID [facility] Last Admin: 02/16/19 10:29 Dose: 0.4 mg Timolol Maleate (Timoptic 0.5% Ophth Soln) 0 ml EYEBOTH DAILY [facility] Last Admin: 02/16/19 10:29 Dose: 1 drop Discontinued Medications Hydrocodone Bitart/Acetaminophen ([place] 325-5 Mg) 1 tab PO Q6H PRN PRN Reason: Pain (moderate 4-6) Last Admin: 02/12/19 13:11 Dose: 1 tab Al Hydroxide/Mg Hydroxide (Mag-Al Plus) 15 ml PO TID@0800,1200,1700 [facility] Last Admin: 02/15/19 07:41 Dose: Not Given Bupivacaine HCl (Marcaine 0.25%) Confirm Administered Dose 30 ml .ROUTE .STK- MED ONE Stop: 02/12/19 06:29 Last Admin: 02/12/19 08:55 Dose: 20 ml Bupivacaine HCl (Sensorcaine-Mpf 0.75%) Confirm Administered Dose 30 ml .ROUTE .STK-MED ONE Stop: 02/12/19 07:08 Dexamethasone (Dexamethasone) Confirm Administered Dose 4 mg .ROUTE .STK-MED ONE Stop: 02/12/19 08:20 Ephedrine Sulfate (Ephedrine In Ns) Confirm Administered Dose 25 mg .ROUTE .STK- MED ONE Stop: 02/12/19 08:19 Fentanyl (Sublimaze) Confirm Administered Dose 100 mcg .ROUTE .STK-MED ONE Stop: 02/12/19 07:02 Fentanyl (Sublimaze) 50 mcg IVPUSH Q5M PRN PRN Reason: Pain Stop: 02/12/19 12:00 Hydromorphone HCl (Dilaudid) 0.5 mg IVPUSH ONETIME ONE Stop: 02/11/19 14:21 Last Admin: 02/11/19 14:22 Dose: 0.5 mg Hydromorphone HCl (Dilaudid) Confirm Administered Dose 0.5 mg .ROUTE .STK-MED ONE Stop: 02/11/19 14:20 Last Admin: 02/11/19 14:26 Dose: Not Given Hydromorphone HCl (Dilaudid) 0.5 mg IVPUSH NOW STA Stop: 02/11/19 14:21 Last Admin: 02/11/19 14:47 Dose: 0.5 mg Hydromorphone HCl (Dilaudid) 0.5 mg IVPUSH ONETIME STA Stop: 02/11/19 15:57 Last Admin: 02/11/19 16:00 Dose: 0.5 mg Hydromorphone HCl (Dilaudid) Confirm Administered Dose 0.5 mg .ROUTE .STK-MED ONE Stop: 02/11/19 16:00 Last Admin: 02/11/19 18:29 Dose: Not Given Hydromorphone HCl (Dilaudid) Confirm Administered Dose 0.5 mg .ROUTE .STK-MED ONE Stop: 02/11/19 18:50 Last Admin: 02/11/19 19:03 Dose: Not Given Hydromorphone HCl (Dilaudid) 0.5 mg IVPUSH ONETIME STA Stop: 02/11/19 18:46 Last Admin: 02/11/19 18:45 Dose: 0.5 mg Hydromorphone HCl (Dilaudid) 0.5 mg IVPUSH Q4H PRN PRN Reason: Pain (moderate 4-6) Hydromorphone HCl (Dilaudid) 0.5 mg IVPUSH Q15M PRN PRN Reason: severe pain Stop: 02/12/19 12:00 Sodium Chloride (Sodium Chloride 0.45%) 1,000 mls @ 75 mls/hr IV ASDIRECTED [facility] Stop: 02/12/19 02:45 Last Admin: 02/11/19 22:32 Dose: 75 mls/hr Lidocaine HCl (Xylocaine-Mpf 1%) Confirm Administered Dose 4 mls @ as directed .ROUTE .STK-MED ONE Stop: 02/12/19 07:03 Lidocaine HCl (Xylocaine-Mpf 1%) Confirm Administered Dose 5 mls @ as directed .ROUTE .STK-MED ONE Stop: 02/12/19 07:08 Clindamycin Phosphate 900 mg/ (Sodium Chloride) 106 mls @ 212 mls/hr IV ONETIME ONE Stop: 02/12/19 08:14 Last Admin: 02/12/19 17:58 Dose: Not Given Lactated Ringer's (Ringers, Lactated) 1,000 mls [facility] Admin: 02/12/19 14:01 Dose: 125 mls/hr Clindamycin Phosphate 900 mg/ (Sodium Chloride) 106 mls @ 212 mls/hr IV Q6H [facility] Stop: 02/13/19 08:29 Last Admin: 02/13/19 09:27 Dose: 212 mls/hr Sodium Chloride (Normal Saline) 250 mls @ 999 mls/hr IV ONETIME ONE Stop: 02/13/19 11:00 Last Admin: 02/13/19 10:51 Dose: 999 mls/hr Sodium Chloride (Normal Saline) 1,000 mls @ 100 [facility] Last Admin: 02/13/19 11:12 Dose: 100 mls/hr Magnesium Sulfate 4 gm/ Premix 50 mls @ 12.5 mls/hr IV ONETIME ONE Stop: 02/13/19 18:14 Last Admin: 02/13/19 15:39 Dose: 12.5 mls/hr Magnesium Sulfate 2 gm/ Premix 50 mls @ 25 mls/hr IV ONETIME ONE Stop: 02/14/19 12:32 Last Admin: 02/14/19 12:06 Dose: 25 mls/hr Magnesium Sulfate 2 gm/ Premix 50 mls @ 25 mls/hr IV ONETIME ONE Stop: 02/15/19 18:17 Last Admin: 02/15/19 16:56 Dose: 25 mls/hr Sodium Chloride (Normal Saline) Confirm Administered Dose 250 mls @ as directed .ROUTE .STK-MED ONE Stop: 02/16/19 10:09 Last Admin: 02/16/19 10:54 Dose: Not Given Ketamine HCl (Ketalar) Confirm Administered Dose 500 mg .ROUTE .STK-MED ONE Stop: 02/12/19 07:02 Ketorolac Tromethamine (Toradol) 15 mg IVPUSH ONETIME ONE Stop: 02/12/19 14:54 Last Admin: 02/12/19 15:10 Dose: 15 mg Magnesium Hydroxide (Milk Of Magnesia) 30 ml PO ONETIME ONE Stop: 02/14/19 08:31 Last Admin: 02/14/19 09:01 Dose: 30 ml Metoprolol Tartrate (Lopressor) 12.5 mg PO BID [facility] Last Admin: 02/14/19 08:58 Dose: 12.5 mg Midazolam HCl (Versed 1 Mg/Ml) Confirm Administered Dose 2 mg .ROUTE .STK-MED ONE Stop: 02/12/19 07:02 Ondansetron HCl (Zofran) Confirm Administered Dose 4 mg .ROUTE .STK-MED ONE Stop: 02/12/19 08:20 Phenylephrine HCl (Phenylephrine In Ns 100 Mcg/Ml) Confirm Administered Dose 1 mg .ROUTE .STK-MED ONE Stop: 02/12/19 08:19 Phenylephrine HCl ([place]-Synephrine 0.25% Mild Nasal [place]) 0 ml NASLF ONETIME ONE Stop: 02/16/19 09:59 Last Admin: 02/16/19 10:11 Dose: 1 applic Propofol (Diprivan 20 Ml) Confirm Administered Dose 600 mg .ROUTE .STK-MED ONE Stop: 02/12/19 07:02 Tamsulosin HCl (Flomax) 0.4 mg PO BEDTIME [facility] Last Admin: 02/13/19 21:57 Dose: 0.4 mg - Exam Wound/Incisions: Dressing Dry and Intact General: Alert, Cooperative, No Acute Distress Lungs: Normal Respiratory Effort Extremities: Other (NVS intact for BLE. Luis Enrique's negative. Right thigh soft, nontender.) - Problem List Review Problem List Initiated/Reviewed/Updated: Yes - My Orders Last 24 Hours: Active Orders 24 hr Category Date Time Status Clear Liquid Diet [DIET] Diet 02/15/19 Dinner Active BMP [BASIC METABOLIC PANEL,BMP] [CHEM] DAILY Lab 02/17/19 05:00 Ordered BMP [BASIC METABOLIC PANEL,BMP] [CHEM] DAILY Lab 02/18/19 05:00 Ordered BMP [BASIC METABOLIC PANEL,BMP] [CHEM] DAILY Lab 02/19/19 05:00 Ordered CBC WITH AUTO DIFF [HEME] DAILY Lab 02/17/19 05:00 Ordered CBC WITH AUTO DIFF [HEME] DAILY Lab 02/18/19 05:00 Ordered CBC WITH AUTO DIFF [HEME] DAILY Lab 02/19/19 05:00 Ordered CRP [C-REACTIVE PROTEIN] [CHEM] DAILY Lab 02/17/19 05:00 Ordered CRP [C-REACTIVE PROTEIN] [CHEM] DAILY Lab 02/18/19 05:00 Ordered CRP [C-REACTIVE PROTEIN] [CHEM] DAILY Lab 02/19/19 05:00 Ordered HEMOGLOBIN/HEMATOCRIT,HH [HEME] Routine Lab 02/16/19 20:00 Ordered RED BLOOD CELLS LP [BBK] Routine Lab 02/16/19 04:59 Results TYPE AND SCREEN [BBK] Stat Lab 02/16/19 04:59 Results Sodium Chloride 0.9% [Normal Saline] 250 ml Med 02/16/19 10:15 Active IV ASDIRECTED Transfuse PRBC [Transfuse Red Blood Cells] [COMM] Oth 02/16/19 08:54 Ordered Routine Medication Orders Acetaminophen (Tylenol) 650 mg PO Q6H PRN PRN Reason: Pain/Fever Last Admin: 02/16/19 05:13 Dose: 650 mg Admin: 02/15/19 14:43 Dose: 650 mg Admin: 02/13/19 15:52 Dose: 650 mg Hydrocodone Bitart/Acetaminophen ([place] 325-5 Mg) 1 tab PO Q4H PRN PRN Reason: Pain (moderate 4-6) Last Admin: 02/14/19 16:58 Dose: 1 tab Admin: 02/14/19 12:20 Dose: 1 tab Admin: 02/13/19 22:36 Dose: 1 tab Admin: 02/13/19 09:29 Dose: 1 tab Aspirin (Ecotrin) 325 mg PO BID [facility] Last Admin: 02/15/19 20:11 Dose: 325 mg Admin: 02/15/19 08:10 Dose: 325 mg Admin: 02/14/19 21:35 Dose: 325 mg Admin: 02/14/19 08:57 Dose: 325 mg Admin: 02/13/19 21:57 Dose: Not Given Admin: 02/13/19 09:49 Dose: 325 mg Dextrose/Water (Dextrose 50% In Water) 50 ml IVPUSH ASDIRECTED PRN PRN Reason: Hypoglycemia Famotidine (Pepcid) 20 mg PO BID [facility] Last Admin: 02/16/19 10:30 Dose: 20 mg Admin: 02/15/19 20:11 Dose: 20 mg Admin: 02/15/19 08:11 Dose: 20 mg Admin: 02/14/19 21:33 Dose: 20 mg Admin: 02/14/19 08:58 Dose: 20 mg Admin: 02/13/19 21:57 Dose: 20 mg Admin: 02/13/19 09:50 Dose: 20 mg Finasteride (Proscar) 5 mg PO DAILY [facility] Last Admin: 02/16/19 10:29 Dose: 5 mg Admin: 02/15/19 08:10 Dose: 5 mg Admin: 02/14/19 08:55 Dose: 5 mg Admin: 02/13/19 09:47 Dose: 5 mg Admin: 02/12/19 14:04 Dose: Hydralazine HCl (Apresoline) 10 mg IVPUSH Q6H PRN PRN Reason: Hypertension Hydromorphone HCl (Dilaudid) 0.5 mg IVPUSH Q4H PRN PRN Reason: Pain (moderate 4-6) Last Admin: 02/14/19 23:55 Dose: 0.5 mg Admin: 02/14/19 07:44 Dose: 0.5 mg Admin: 02/12/19 16:44 Dose: 0.5 mg Admin: 02/12/19 06:24 Dose: 0.5 mg Admin: 02/12/19 02:29 Dose: 0.5 mg Hydromorphone HCl (Dilaudid) 0.5 mg IVPUSH Q6H PRN PRN Reason: Pain (severe 7-10) Sodium Chloride (Normal Saline) 1,000 mls @ 75 mls/hr IV ASDIRECTED [facility] Last Admin: 02/16/19 05:15 Dose: 75 mls/hr Infusion: 02/16/19 04:02 Dose: 75 mls/hr Admin: 02/15/19 14:42 Dose: 75 mls/hr Infusion: 02/15/19 14:42 Dose: 75 mls/hr Admin: 02/15/19 01:22 Dose: 75 mls/hr Infusion: 02/15/19 01:22 Dose: 75 mls/hr Admin: 02/14/19 12:05 Dose: 75 mls/hr Infusion: 02/14/19 11:11 Dose: 75 mls/hr Admin: 02/13/19 21:51 Dose: 75 mls/hr Infusion: 02/13/19 21:51 Dose: 75 mls/hr Admin: 02/13/19 19:06 Dose: 75 mls/hr Sodium Chloride (Normal Saline) 250 mls @ 125 mls/hr IV ASDIRECTED [facility] Stop: 02/16/19 23:00 Insulin Human Lispro (Humalog) 0 unit SUBCUT QIDACANDBED [facility]; Protocol Last Admin: 02/16/19 06:43 Dose: Not Given Admin: 02/15/19 21:27 Dose: Not Given Admin: 02/15/19 16:55 Dose: Admin: 02/15/19 12:12 Dose: 1 unit Admin: 02/15/19 07:40 Dose: Not Given Admin: 02/14/19 21:44 Dose: 1 unit Admin: 02/14/19 17:04 Dose: Not Given Admin: 02/14/19 12:11 Dose: 1 unit Admin: 02/14/19 08:52 Dose: Not Given Admin: 02/13/19 22:37 Dose: 1 unit Admin: 02/13/19 16:39 Dose: 1 unit Levetiracetam (Keppra) 500 mg PO BID [facility] Last Admin: 02/16/19 10:30 Dose: 500 mg Admin: 02/15/19 20:11 Dose: 500 mg Admin: 02/15/19 08:11 Dose: 500 mg Admin: 02/14/19 21:33 Dose: 500 mg Admin: 02/14/19 08:57 Dose: 500 mg Admin: 02/13/19 21:57 Dose: 500 mg Admin: 02/13/19 09:51 Dose: 500 mg Admin: 02/12/19 21:49 Dose: 500 mg Met[facility] ([facility]uc[facility]) [facility] Last Admin: 02/16/19 06:23 Dose: 250 mg Admin: 02/15/19 16:55 Dose: Admin: 02/15/19 08:11 Dose: 250 mg Admin: 02/14/19 16:57 Dose: 250 mg Admin: 02/14/19 07:42 Dose: 250 mg Admin: 02/13/19 16:32 Dose: 250 mg Admin: 02/13/19 06:19 Dose: 250 mg Admin: 02/12/19 21:49 Dose: 250 mg Metoprolol Tartrate (Lopressor) 5 mg IVPUSH Q6H PRN PRN Reason: HR>110 Last Admin: 02/14/19 23:47 Dose: 5 mg Metoprolol Tartrate (Lopressor) 25 mg PO BID [facility] Last Admin: 02/16/19 10:29 Dose: 25 mg Admin: 02/15/19 20:12 Dose: 25 mg Admin: 02/15/19 08:11 Dose: 25 mg Admin: 02/14/19 21:34 Dose: 25 mg Oxycodone/Acetaminophen (Percocet 325-5 Mg) 1 - 2 tab PO Q4H PRN PRN Reason: Pain (severe 7-10) Last Admin: 02/15/19 03:19 Dose: 2 tab Admin: 02/13/19 04:56 Dose: 2 tab Admin: 02/12/19 20:27 Dose: 2 tab Rosuvastatin Calcium (Crestor) 10 mg PO BEDTIME [facility] Last Admin: 02/15/19 20:11 Dose: 10 mg Admin: 02/14/19 21:35 Dose: 10 mg Admin: 02/13/19 21:57 Dose: 10 mg Admin: 02/12/19 20:27 Dose: 10 mg Admin: 02/11/19 21:19 Dose: 10 mg Senna (Senna) 8.6 mg PO DAILY [facility] Last Admin: 02/16/19 10:29 Dose: 8.6 mg Admin: 02/15/19 08:12 Dose: Admin: 02/14/19 09:00 Dose: 8.6 mg Admin: 02/13/19 09:46 Dose: 8.6 mg Admin: 02/12/19 14:05 Dose: Sertraline HCl (Zoloft) 25 mg PO DAILY [facility] Last Admin: 02/16/19 10:29 Dose: 25 mg Admin: 02/15/19 08:10 Dose: 25 mg Admin: 02/14/19 08:57 Dose: 25 mg Admin: 02/13/19 10:06 Dose: 25 mg Tamsulosin HCl (Flomax) 0.4 mg PO BID [facility] Last Admin: 02/16/19 10:29 Dose: 0.4 mg Admin: 02/15/19 20:11 Dose: 0.4 mg Admin: 02/15/19 08:10 Dose: 0.4 mg Admin: 02/14/19 21:33 Dose: 0.4 mg Admin: 02/14/19 12:04 Dose: 0.4 mg Timolol Maleate (Timoptic 0.5% Ophth Soln) 0 ml EYEBOTH DAILY [facility] Last Admin: 02/16/19 10:29 Dose: 1 drop Admin: 02/15/19 08:24 Dose: 1 drop Admin: 02/14/19 08:54 Dose: 1 drop Admin: 02/13/19 09:32 Dose: 1 drop Admin: 02/12/19 21:50 Dose: 1 drop - Assessment Assessment (Free Text/Narrative):: POD#4 - cephalomedullary nail placement for right femur fracture - Plan Plan (Free Text/Narrative):: 1. Medical management per Hospitalist service. 2. The pt will receive blood transfusion today. Hgb 7.8 this morning. 3. 325mg ASA PO BID per Dr. Bray and Hospitalist service agreeable. TEDs and SCDs ordered. 4. Likely d/c to [place] tomorrow for continued rehabilitation. The pt's case was discussed with Dr. Bray today.
--- NOTE | 2019-02-16 12:43 | OR ---
DATE OF OPERATION: 02/12/2019 SURGEON: Shubham Bray MD OPERATION PERFORMED: Cephalomedullary nailing of right intertrochanteric hip fracture. PREOPERATIVE DIAGNOSIS: Right intertrochanteric hip fracture. POSTOPERATIVE DIAGNOSIS: Right intertrochanteric hip fracture. ANESTHESIA: Local MAC with spinal. ANESTHESIA PROVIDER: Melisa Heath. HAND CELL TUBER: Janine Ann PA-C. ESTIMATED BLOOD LOSS: 100 mL. COMPLICATIONS: None. CONDITION: Stable. IMPLANTS: Zephyr 400 x 11 mm long gamma nail. DESCRIPTION OF PROCEDURE: The patient was identified in the preop holding area. Proper site was marked and identified by the surgeon. The patient was taken back to the operating theater where after adequate anesthesia, the patient's left lower extremity was placed in a traction boot. No traction was applied. The right lower extremity was placed in traction boot, and then gross and fine traction was done until there was reduction on C-arm fluoroscopy. After a time-out had been performed. At this time, the right hip was then sterilely prepped and draped in the usual sterile fashion. OR time-out was performed. The patient received 2 g IV Ancef. At this time, a standard incision was made superior to the greater trochanter. The guide pin was then placed at the tip of greater trochanter. The opening reamer was then utilized. Ball-tipped guidewire was then placed down the canal all the way to the proximal pole of the patella. It measured a 400 mm for the nail length. At this time, a 12.5 mm reamer was then placed down the canal. It was found to be sufficiently open that no other further reaming would be needed. At this time, the 400 mm long gamma nail was then placed in the proper position. Incision was made for the triple trocar for the lag screw. At this time, a guide pin was placed in a center-center position of the head and neck on both AP and lateral fluoroscopy. The step reamer was then utilized at this point, and the lag screw was then placed up into the femoral head by locking. The set screw was then placed and was found to be in adequate position. Attention was turned distally and a static locking screw from lateral to medial was placed distally. The fracture site was anatomically reduced. At this time, all incisions were irrigated with normal saline. 2-0 Vicryl was used subcutaneously. [place] were used for the skin. A sterile soft dressing was applied. The patient was sent to the PACU in stable condition. LUIS F /[id number]
[2019-02-16] MEDS ORDERED: Furosemide 40 MG/4 ML VIAL IVPUSH ONE (13:43)
[2019-02-16] MEDS: Rosuvastatin 10 MG Tab PO SCH (21:40)
[2019-02-17] MEDS: Acetaminophen 325 MG Tab PO PRN ×2 (00:08→06:49)
[2019-02-17] MEDS: metFORMIN 500 MG Tab PO SCH (06:49)
[2019-02-17] MEDS: Insulin Lispro 100 Units/ML 3 ML Vial SUBCUT SCH ×2 (07:05→11:50)
--- NOTE | 2019-02-17 08:12 | PCM.SURGPN ---
- General Info POD#: 5 Functional Status: Reports: Pain Controlled, Tolerating Diet, Other (The pt states he continues to require assistance with mobility.) - Patient Data Vitals - Most Recent: Last Vital Signs Temp 98.2 F 02/17/19 03:53 Pulse 78 02/17/19 03:53 Resp 16 02/17/19 03:53 BP 138/68 02/17/19 03:53 Pulse Ox 95 02/17/19 03:53 Weight - Most Recent: 185 lb 12.8 oz I&O - Last 24 Hours: Intake & Output 02/16/19 02/17/19 02/17/19 22:59 06:59 14:59 Intake Total 1440 350 Output Total 480 925 Balance 960 -575 Lab Results Last 24 Hrs: Laboratory Results - last 24 hr 02/16/19 02/16/19 02/16/19 Range/Units 04:59 05:00 11:07 WBC (4.23-9.07) K/mm3 RBC (4.63-6.08) M/mm3 Hgb (13.7-17.5) gm/L Hct (40.1-51.0) % MCV (79.0-92.2) fl MCH (25.7-32.2) pg MCHC (32.2-35.5) g/dl RDW Std Deviation (35.1-43.9) fL Plt Count (163-337) K/mm3 MPV (9.4-12.3) fl Neut % (Auto) (34.0-67.9) % Lymph % (Auto) (21.8-53.1) % [place] % (Auto) (5.3-12.2) % Eos % (Auto) (0.8-7.0) Baso % (Auto) (0.1-1.2) % Neut # (Auto) (1.78-5.38) K/mm3 Lymph # (Auto) (1.32-3.57) K/mm3 Hayes # (Auto) (0.30-0.82) K/mm3 Eos # (Auto) (0.04-0.54) K/mm3 Baso # (Auto) (0.01-0.08) K/mm3 Sodium (136-145) mEq/L Potassium (3.5-5.1) mEq/L Chloride (98-107) mEq/L Carbon Dioxide (21-32) mEq/L Anion Gap (5-15) BUN (7-18) mg/dL Creatinine (0.7-1.3) mg/dL Est Cr Clr Drug Dosing mL/min Estimated GFR (MDRD) (>60) mL/min BUN/Creatinine Ratio (14-18) Glucose (83-115) mg/dL POC Glucose 205 H (83-110) mg/dL Calcium (8.5-10.1) mg/dL C-Reactive Protein (<1.0) mg/dL Urine Color Yellow (Yellow) Urine Appearance Clear (Clear) Urine pH 7.0 (5.0-8.0) Ur Specific [place] 1.020 (1.005-1.030) Urine Protein Negative (Negative) Urine Glucose (UA) Negative (Negative) Urine Ketones 1+ H (Negative) Urine Occult Blood Negative (Negative) Urine Nitrite Negative (Negative) Urine Bilirubin Negative (Negative) Urine Urobilinogen 1.0 (0.2-1.0) Ur Leukocyte Esterase Negative (Negative) Urine RBC 0-5 (0-5) /hpf Urine WBC 0-5 (0-5) /hpf Ur Epithelial Cells 0-5 (0-5) /hpf Urine Bacteria Rare (FEW) /hpf Urine Mucus Moderate H (FEW) /hpf Blood Type A POSITIVE Gel Antibody Screen Negative Crossmatch See Detail 02/16/19 02/16/19 02/17/19 Range/Units 16:46 21:35 05:30 WBC 6.62 (4.23-9.07) K/mm3 RBC 3.40 L (4.63-6.08) M/mm3 Hgb 10.1 L (13.7-17.5) gm/L Hct 30.7 L (40.1-51.0) % MCV 90.3 (79.0-92.2) fl MCH 29.7 (25.7-32.2) pg MCHC 32.9 (32.2-35.5) g/dl RDW Std Deviation 49.5 H (35.1-43.9) fL Plt Count 156 L (163-337) K/mm3 MPV 11.9 (9.4-12.3) fl Neut % (Auto) 61.7 (34.0-67.9) % Lymph % (Auto) 24.3 (21.8-53.1) % Hayes % (Auto) 10.9 (5.3-12.2) % Eos % (Auto) 2.4 (0.8-7.0) Baso % (Auto) 0.5 (0.1-1.2) % Neut # (Auto) 4.09 (1.78-5.38) K/mm3 Lymph # (Auto) 1.61 (1.32-3.57) K/mm3 Hayes # (Auto) 0.72 (0.30-0.82) K/mm3 Eos # (Auto) 0.16 (0.04-0.54) K/mm3 Baso # (Auto) 0.03 (0.01-0.08) K/mm3 Sodium (136-145) mEq/L Potassium (3.5-5.1) mEq/L Chloride (98-107) mEq/L Carbon Dioxide (21-32) mEq/L Anion Gap (5-15) BUN (7-18) mg/dL Creatinine (0.7-1.3) mg/dL Est Cr Clr Drug Dosing mL/min Estimated GFR (MDRD) (>60) mL/min BUN/Creatinine Ratio (14-18) Glucose (83-115) mg/dL POC Glucose 123 H 144 H (83-110) mg/dL Calcium (8.5-10.1) mg/dL C-Reactive Protein (<1.0) mg/dL Urine Color (Yellow) Urine Appearance (Clear) Urine pH (5.0-8.0) Ur Specific [place] (1.005-1.030) Urine Protein (Negative) Urine Glucose (UA) (Negative) Urine Ketones (Negative) Urine Occult Blood (Negative) Urine Nitrite (Negative) Urine Bilirubin (Negative) Urine Urobilinogen (0.2-1.0) Ur Leukocyte Esterase (Negative) Urine RBC (0-5) /hpf Urine WBC (0-5) /hpf Ur Epithelial Cells (0-5) /hpf Urine Bacteria (FEW) /hpf Urine Mucus (FEW) /hpf Blood Type Gel Antibody Screen Crossmatch 02/17/19 02/17/19 Range/Units 05:30 06:47 WBC (4.23-9.07) K/mm3 RBC (4.63-6.08) M/mm3 Hgb (13.7-17.5) gm/L Hct (40.1-51.0) % MCV (79.0-92.2) fl MCH (25.7-32.2) pg MCHC (32.2-35.5) g/dl RDW Std Deviation (35.1-43.9) fL Plt Count (163-337) K/mm3 MPV (9.4-12.3) fl Neut % (Auto) (34.0-67.9) % Lymph % (Auto) (21.8-53.1) % Hayes % (Auto) (5.3-12.2) % Eos % (Auto) (0.8-7.0) Baso % (Auto) (0.1-1.2) % Neut # (Auto) (1.78-5.38) K/mm3 Lymph # (Auto) (1.32-3.57) K/mm3 Hayes # (Auto) (0.30-0.82) K/mm3 Eos # (Auto) (0.04-0.54) K/mm3 Baso # (Auto) (0.01-0.08) K/mm3 Sodium 142 (136-145) mEq/L Potassium 3.8 (3.5-5.1) mEq/L Chloride 106 (98-107) mEq/L Carbon Dioxide 27 (21-32) mEq/L Anion Gap 12.8 (5-15) BUN 14 (7-18) mg/dL Creatinine 0.7 (0.7-1.3) mg/dL Est Cr Clr Drug Dosing 77.15 mL/min Estimated GFR (MDRD) > 60 (>60) mL/min BUN/Creatinine Ratio 20.0 H (14-18) Glucose 117 H (83-115) mg/dL POC Glucose 114 H (83-110) mg/dL Calcium 8.0 L (8.5-10.1) mg/dL C-Reactive Protein 11.8 H* (<1.0) mg/dL Urine Color (Yellow) Urine Appearance (Clear) Urine pH (5.0-8.0) Ur Specific [place] (1.005-1.030) Urine Protein (Negative) Urine Glucose (UA) (Negative) Urine Ketones (Negative) Urine Occult Blood (Negative) Urine Nitrite (Negative) Urine Bilirubin (Negative) Urine Urobilinogen (0.2-1.0) Ur Leukocyte Esterase (Negative) Urine RBC (0-5) /hpf Urine WBC (0-5) /hpf Ur Epithelial Cells (0-5) /hpf Urine Bacteria (FEW) /hpf Urine Mucus (FEW) /hpf Blood Type Gel Antibody Screen Crossmatch Med Orders - Current: Current Medications Acetaminophen (Tylenol) 650 mg PO Q6H PRN PRN Reason: Pain/Fever Last Admin: 02/17/19 06:49 Dose: 650 mg Hydrocodone Bitart/Acetaminophen ([place] 325-5 Mg) 1 tab PO Q4H PRN PRN Reason: Pain (moderate 4-6) Last Admin: 02/14/19 16:58 Dose: 1 tab Aspirin (Ecotrin) 325 mg PO BID [facility] Last Admin: 02/15/19 20:11 Dose: 325 mg Dextrose/Water (Dextrose 50% In Water) 50 ml IVPUSH ASDIRECTED PRN PRN Reason: Hypoglycemia Famotidine (Pepcid) 20 mg PO BID [facility] Last Admin: 02/16/19 21:40 Dose: 20 mg Finasteride (Proscar) 5 mg PO DAILY [facility] Last Admin: 02/16/19 10:29 Dose: 5 mg Hydralazine HCl (Apresoline) 10 mg IVPUSH Q6H PRN PRN Reason: Hypertension Hydromorphone HCl (Dilaudid) 0.5 mg IVPUSH Q4H PRN PRN Reason: Pain (moderate 4-6) Last Admin: 02/14/19 23:55 Dose: 0.5 mg Hydromorphone HCl (Dilaudid) 0.5 mg IVPUSH Q6H PRN PRN Reason: Pain (severe 7-10) Insulin Human Lispro (Humalog) 0 unit SUBCUT QIDACANDBED [facility]; Protocol Last Admin: 02/17/19 07:05 Dose: Not Given Levetiracetam (Keppra) 500 mg PO BID [facility] Last Admin: 02/16/19 21:40 Dose: 500 mg [facility] Admin: 02/17/19 06:49 Dose: 250 mg Metoprolol Tartrate (Lopressor) 5 mg IVPUSH Q6H PRN PRN Reason: HR>110 Last Admin: 02/14/19 23:47 Dose: 5 mg Metoprolol Tartrate (Lopressor) 25 mg PO BID [facility] Last Admin: 02/16/19 21:40 Dose: 25 mg Oxycodone/Acetaminophen (Percocet 325-5 Mg) 1 - 2 tab PO Q4H PRN PRN Reason: Pain (severe 7-10) Last Admin: 02/15/19 03:19 Dose: 2 tab Rosuvastatin Calcium (Crestor) 10 mg PO BEDTIME [facility] Last Admin: 02/16/19 21:40 Dose: 10 mg Senna (Senna) 8.6 mg PO DAILY [facility] Last Admin: 02/16/19 10:29 Dose: 8.6 mg Sertraline HCl (Zoloft) 25 mg PO DAILY [facility] Last Admin: 02/16/19 10:29 Dose: 25 mg Tamsulosin HCl (Flomax) 0.4 mg PO BID [facility] Last Admin: 02/16/19 21:40 Dose: 0.4 mg Timolol Maleate (Timoptic 0.5% Ophth Soln) 0 ml EYEBOTH DAILY [facility] Last Admin: 02/16/19 10:29 Dose: 1 drop Discontinued Medications Hydrocodone Bitart/Acetaminophen ([place] 325-5 Mg) 1 tab PO Q6H PRN PRN Reason: Pain (moderate 4-6) Last Admin: 02/12/19 13:11 Dose: 1 tab Al Hydroxide/Mg Hydroxide (Mag-Al Plus) 15 ml PO TID@0800,1200,1700 [facility] Last Admin: 02/15/19 07:41 Dose: Not Given Bupivacaine HCl (Marcaine 0.25%) Confirm Administered Dose 30 ml .ROUTE .STK- MED ONE Stop: 02/12/19 06:29 Last Admin: 02/12/19 08:55 Dose: 20 ml Bupivacaine HCl (Sensorcaine-Mpf 0.75%) Confirm Administered Dose 30 ml .ROUTE .STK-MED ONE Stop: 02/12/19 07:08 Dexamethasone (Dexamethasone) Confirm Administered Dose 4 mg .ROUTE .STK-MED ONE Stop: 02/12/19 08:20 Ephedrine Sulfate (Ephedrine In Ns) Confirm Administered Dose 25 mg .ROUTE .STK- MED ONE Stop: 02/12/19 08:19 Fentanyl (Sublimaze) Confirm Administered Dose 100 mcg .ROUTE .STK-MED ONE Stop: 02/12/19 07:02 Fentanyl (Sublimaze) 50 mcg IVPUSH Q5M PRN PRN Reason: Pain Stop: 02/12/19 12:00 Furosemide (Lasix) 40 mg IVPUSH NOW ONE Stop: 02/16/19 13:44 Last Admin: 02/16/19 13:54 Dose: 40 mg Hydromorphone HCl (Dilaudid) 0.5 mg IVPUSH ONETIME ONE Stop: 02/11/19 14:21 Last Admin: 02/11/19 14:22 Dose: 0.5 mg Hydromorphone HCl (Dilaudid) Confirm Administered Dose 0.5 mg .ROUTE .STK-MED ONE Stop: 02/11/19 14:20 Last Admin: 02/11/19 14:26 Dose: Not Given Hydromorphone HCl (Dilaudid) 0.5 mg IVPUSH NOW STA Stop: 02/11/19 14:21 Last Admin: 02/11/19 14:47 Dose: 0.5 mg Hydromorphone HCl (Dilaudid) 0.5 mg IVPUSH ONETIME STA Stop: 02/11/19 15:57 Last Admin: 02/11/19 16:00 Dose: 0.5 mg Hydromorphone HCl (Dilaudid) Confirm Administered Dose 0.5 mg .ROUTE .STK-MED ONE Stop: 02/11/19 16:00 Last Admin: 02/11/19 18:29 Dose: Not Given Hydromorphone HCl (Dilaudid) Confirm Administered Dose 0.5 mg .ROUTE .STK-MED ONE Stop: 02/11/19 18:50 Last Admin: 02/11/19 19:03 Dose: Not Given Hydromorphone HCl (Dilaudid) 0.5 mg IVPUSH ONETIME STA Stop: 02/11/19 18:46 Last Admin: 02/11/19 18:45 Dose: 0.5 mg Hydromorphone HCl (Dilaudid) 0.5 mg IVPUSH Q4H PRN PRN Reason: Pain (moderate 4-6) Hydromorphone HCl (Dilaudid) 0.5 mg IVPUSH Q15M PRN PRN Reason: severe pain Stop: 02/12/19 12:00 Sodium Chloride (Sodium Chloride 0.45%) 1,000 mls @ 75 mls/hr IV ASDIRECTED [facility] Stop: 02/12/19 02:45 Last Admin: 02/11/19 22:32 Dose: 75 mls/hr Lidocaine HCl (Xylocaine-Mpf 1%) Confirm Administered Dose 4 mls @ as directed .ROUTE .STK-MED ONE Stop: 02/12/19 07:03 Lidocaine HCl (Xylocaine-Mpf 1%) Confirm Administered Dose 5 mls @ as directed .ROUTE .STK-MED ONE Stop: 02/12/19 07:08 Clindamycin Phosphate 900 mg/ (Sodium Chloride) 106 mls @ 212 mls/hr IV ONETIME ONE Stop: 02/12/19 08:14 Last Admin: 02/12/19 17:58 Dose: Not Given Lactated Ringer's (Ringers, Lactated) 1,000 mls @ 125 mls/hr IV ASDIRECTED [facility] Last Admin: 02/12/19 14:01 Dose: 125 mls/hr Clindamycin Phosphate 900 mg/ (Sodium Chloride) 106 mls @ 212 mls/hr IV Q6H [facility] Stop: 02/13/19 08:29 Last Admin: 02/13/19 09:27 Dose: 212 mls/hr Sodium Chloride (Normal Saline) 250 mls @ 999 mls/hr IV ONETIME ONE Stop: 02/13/19 11:00 Last Admin: 02/13/19 10:51 Dose: 999 mls/hr Sodium Chloride (Normal Saline) 1,000 mls @ 100 mls/hr IV ASDIRECTED [facility] Last Admin: 02/13/19 11:12 Dose: 100 mls/hr Magnesium Sulfate 4 gm/ Premix 50 mls @ 12.5 mls/hr IV ONETIME ONE Stop: 02/13/19 18:14 Last Admin: 02/13/19 15:39 Dose: 12.5 mls/hr Sodium Chloride (Normal Saline) 1,000 mls @ 75 mls/hr IV ASDIRECTED [facility] Last Admin: 02/16/19 05:15 Dose: 75 mls/hr Magnesium Sulfate 2 gm/ Premix 50 mls @ 25 mls/hr IV ONETIME ONE Stop: 02/14/19 12:32 Last Admin: 02/14/19 12:06 Dose: 25 mls/hr Magnesium Sulfate 2 gm/ Premix 50 mls @ 25 mls/hr IV ONETIME ONE Stop: 02/15/19 18:17 Last Admin: 02/15/19 16:56 Dose: 25 mls/hr Sodium Chloride (Normal Saline) 250 mls @ 125 mls/hr IV ASDIRECTED [facility] Stop: 02/16/19 23:00 Sodium Chloride (Normal Saline) Confirm Administered Dose 250 mls @ as directed .ROUTE .STK-MED ONE Stop: 02/16/19 10:09 Last Admin: 02/16/19 10:54 Dose: Not Given Ketamine HCl (Ketalar) Confirm Administered Dose 500 mg .ROUTE .STK-MED ONE Stop: 02/12/19 07:02 Ketorolac Tromethamine (Toradol) 15 mg IVPUSH ONETIME ONE Stop: 02/12/19 14:54 Last Admin: 02/12/19 15:10 Dose: 15 mg Magnesium Hydroxide (Milk Of Magnesia) 30 ml PO ONETIME ONE Stop: 02/14/19 08:31 Last Admin: 02/14/19 09:01 Dose: 30 ml Metoprolol Tartrate (Lopressor) 12.5 mg PO BID [facility] Last Admin: 02/14/19 08:58 Dose: 12.5 mg Midazolam HCl (Versed 1 Mg/Ml) Confirm Administered Dose 2 mg .ROUTE .STK-MED ONE Stop: 02/12/19 07:02 Ondansetron HCl (Zofran) Confirm Administered Dose 4 mg .ROUTE .STK-MED ONE Stop: 02/12/19 08:20 Phenylephrine HCl (Phenylephrine In Ns 100 Mcg/Ml) Confirm Administered Dose 1 mg .ROUTE .STK-MED ONE Stop: 02/12/19 08:19 Phenylephrine HCl ([place]-Synephrine 0.25% Mild Nasal [place]) 0 ml NASLF ONETIME ONE Stop: 02/16/19 09:59 Last Admin: 02/16/19 10:11 Dose: 1 applic Propofol (Diprivan 20 Ml) Confirm Administered Dose 600 mg .ROUTE .STK-MED ONE Stop: 02/12/19 07:02 Tamsulosin HCl (Flomax) 0.4 mg PO BEDTIME [facility] Last Admin: 02/13/19 21:57 Dose: 0.4 mg - Exam Wound/Incisions: Other (Min shadowing on Aquacel dressing. ) General: Alert, Cooperative, No Acute Distress Lungs: Normal Respiratory Effort Extremities: Other (NVS intact for BLE. Right thigh soft, nontender. Luis Enrique's negative.) - Problem List Review Problem List Initiated/Reviewed/Updated: Yes - My Orders Last 24 Hours: Active Orders 24 hr Category Date Time Status Heart Healthy Diet [DIET] Diet 02/16/19 Dinner Active BMP [BASIC METABOLIC PANEL,BMP] [CHEM] DAILY Lab 02/18/19 05:00 Ordered BMP [BASIC METABOLIC PANEL,BMP] [CHEM] DAILY Lab 02/19/19 05:00 Ordered CBC WITH AUTO DIFF [HEME] DAILY Lab 02/18/19 05:00 Ordered CBC WITH AUTO DIFF [HEME] DAILY Lab 02/19/19 05:00 Ordered CRP [C-REACTIVE PROTEIN] [CHEM] DAILY Lab 02/18/19 05:00 Ordered CRP [C-REACTIVE PROTEIN] [CHEM] DAILY Lab 02/19/19 05:00 Ordered Transfuse PRBC [Transfuse Red Blood Cells] [COMM] Oth 02/16/19 08:54 Ordered Routine Medication Orders Acetaminophen (Tylenol) 650 mg PO Q6H PRN PRN Reason: Pain/Fever Last Admin: 02/17/19 06:49 Dose: 650 mg Admin: 02/17/19 00:08 Dose: 650 mg Admin: 02/16/19 18:04 Dose: 650 mg Admin: 02/16/19 12:03 Dose: 650 mg Admin: 02/16/19 05:13 Dose: 650 mg Admin: 02/15/19 14:43 Dose: 650 mg Admin: 02/13/19 15:52 Dose: 650 mg Hydrocodone Bitart/Acetaminophen ([place] 325-5 Mg) 1 tab PO Q4H PRN PRN Reason: Pain (moderate 4-6) Last Admin: 02/14/19 16:58 Dose: 1 tab Admin: 02/14/19 12:20 Dose: 1 tab Admin: 02/13/19 22:36 Dose: 1 tab Admin: 02/13/19 09:29 Dose: 1 tab Aspirin (Ecotrin) 325 mg PO BID [facility] Last Admin: 02/15/19 20:11 Dose: 325 mg Admin: 02/15/19 08:10 Dose: 325 mg Admin: 02/14/19 21:35 Dose: 325 mg Admin: 02/14/19 08:57 Dose: 325 mg Admin: 02/13/19 21:57 Dose: Not Given Admin: 02/13/19 09:49 Dose: 325 mg Dextrose/Water (Dextrose 50% In Water) 50 ml IVPUSH ASDIRECTED PRN PRN Reason: Hypoglycemia Famotidine (Pepcid) 20 mg PO BID [facility] Last Admin: 02/16/19 21:40 Dose: 20 mg Admin: 02/16/19 10:30 Dose: 20 mg Admin: 02/15/19 20:11 Dose: 20 mg Admin: 02/15/19 08:11 Dose: 20 mg Admin: 02/14/19 21:33 Dose: 20 mg Admin: 02/14/19 08:58 Dose: 20 mg Admin: 02/13/19 21:57 Dose: 20 mg Admin: 02/13/19 09:50 Dose: 20 mg Finasteride (Proscar) 5 mg PO DAILY [facility] Last Admin: 02/16/19 10:29 Dose: 5 mg Admin: 02/15/19 08:10 Dose: 5 mg Admin: 02/14/19 08:55 Dose: 5 mg Admin: 02/13/19 09:47 Dose: 5 mg Admin: 02/12/19 14:04 Dose: Hydralazine HCl (Apresoline) 10 mg IVPUSH Q6H PRN PRN Reason: Hypertension Hydromorphone HCl (Dilaudid) 0.5 mg IVPUSH Q4H PRN PRN Reason: Pain (moderate 4-6) Last Admin: 02/14/19 23:55 Dose: 0.5 mg Admin: 02/14/19 07:44 Dose: 0.5 mg Admin: 02/12/19 16:44 Dose: 0.5 mg Admin: 02/12/19 06:24 Dose: 0.5 mg Admin: 02/12/19 02:29 Dose: 0.5 mg Hydromorphone HCl (Dilaudid) 0.5 mg IVPUSH Q6H PRN PRN Reason: Pain (severe 7-10) Insulin Human Lispro (Humalog) 0 unit SUBCUT QIDACANDBED [facility]; Protocol Last Admin: 02/17/19 07:05 Dose: Not Given Admin: 02/16/19 21:41 Dose: Not Given Admin: 02/16/19 17:43 Dose: Admin: 02/16/19 11:42 Dose: 2 unit Admin: 02/16/19 06:43 Dose: Not Given Admin: 02/15/19 21:27 Dose: Not Given Admin: 02/15/19 16:55 Dose: Admin: 02/15/19 12:12 Dose: 1 unit Admin: 02/15/19 07:40 Dose: Not Given Admin: 02/14/19 21:44 Dose: 1 unit Admin: 02/14/19 17:04 Dose: Not Given Admin: 02/14/19 12:11 Dose: 1 unit Admin: 02/14/19 08:52 Dose: Not Given Admin: 02/13/19 22:37 Dose: 1 unit Admin: 02/13/19 16:39 Dose: 1 unit Levetiracetam (Keppra) 500 mg PO BID [facility] Last Admin: 02/16/19 21:40 Dose: 500 mg Admin: 02/16/19 10:30 Dose: 500 mg Admin: 02/15/19 20:11 Dose: 500 mg Admin: 02/15/19 08:11 Dose: 500 mg Admin: 02/14/19 21:33 Dose: 500 mg Admin: 02/14/19 08:57 Dose: 500 mg Admin: 02/13/19 21:57 Dose: 500 mg Admin: 02/13/19 09:51 Dose: 500 mg Admin: 02/12/19 21:49 Dose: 500 mg Metformin HCl (Glucophage) 250 mg PO BIDMEALS [facility] Last Admin: 02/17/19 06:49 Dose: 250 mg Admin: 02/16/19 18:03 Dose: 250 mg Admin: 02/16/19 06:23 Dose: 250 mg Admin: 02/15/19 16:55 Dose: Admin: 02/15/19 08:11 Dose: 250 mg Admin: 02/14/19 16:57 Dose: 250 mg Admin: 02/14/19 07:42 Dose: 250 mg Admin: 02/13/19 16:32 Dose: 250 mg Admin: 02/13/19 06:19 Dose: 250 mg Admin: 02/12/19 21:49 Dose: 250 mg Metoprolol Tartrate (Lopressor) 5 mg IVPUSH Q6H PRN PRN Reason: HR>110 Last Admin: 02/14/19 23:47 Dose: 5 mg Metoprolol Tartrate (Lopressor) 25 mg PO BID [facility] Last Admin: 02/16/19 21:40 Dose: 25 mg Admin: 02/16/19 10:29 Dose: 25 mg Admin: 02/15/19 20:12 Dose: 25 mg Admin: 02/15/19 08:11 Dose: 25 mg Admin: 02/14/19 21:34 Dose: 25 mg Oxycodone/Acetaminophen (Percocet 325-5 Mg) 1 - 2 tab PO Q4H PRN PRN Reason: Pain (severe 7-10) Last Admin: 02/15/19 03:19 Dose: 2 tab Admin: 02/13/19 04:56 Dose: 2 tab Admin: 02/12/19 20:27 Dose: 2 tab Rosuvastatin Calcium (Crestor) 10 mg PO BEDTIME [facility] Last Admin: 02/16/19 21:40 Dose: 10 mg Admin: 02/15/19 20:11 Dose: 10 mg Admin: 02/14/19 21:35 Dose: 10 mg Admin: 02/13/19 21:57 Dose: 10 mg Admin: 02/12/19 20:27 Dose: 10 mg Admin: 02/11/19 21:19 Dose: 10 mg Senna (Senna) 8.6 mg PO DAILY [facility] Last Admin: 02/16/19 10:29 Dose: 8.6 mg Admin: 02/15/19 08:12 Dose: Admin: 02/14/19 09:00 Dose: 8.6 mg Admin: 02/13/19 09:46 Dose: 8.6 mg Admin: 02/12/19 14:05 Dose: Sertraline HCl (Zoloft) 25 mg PO DAILY [facility] Last Admin: 02/16/19 10:29 Dose: 25 mg Admin: 02/15/19 08:10 Dose: 25 mg Admin: 02/14/19 08:57 Dose: 25 mg Admin: 02/13/19 10:06 Dose: 25 mg Tamsulosin HCl (Flomax) 0.4 mg PO BID [facility] Last Admin: 02/16/19 21:40 Dose: 0.4 mg Admin: 02/16/19 10:29 Dose: 0.4 mg Admin: 02/15/19 20:11 Dose: 0.4 mg Admin: 02/15/19 08:10 Dose: 0.4 mg Admin: 02/14/19 21:33 Dose: 0.4 mg Admin: 02/14/19 12:04 Dose: 0.4 mg Timolol Maleate (Timoptic 0.5% Ophth Soln) 0 ml EYEBOTH DAILY [facility] Last Admin: 02/16/19 10:29 Dose: 1 drop Admin: 02/15/19 08:24 Dose: 1 drop Admin: 02/14/19 08:54 Dose: 1 drop Admin: 02/13/19 09:32 Dose: 1 drop Admin: 02/12/19 21:50 Dose: 1 drop - Assessment Assessment (Free Text/Narrative):: POD#5 - cephalomedullary kevyn placement for right femur fracture - Plan Plan (Free Text/Narrative):: 1. 325mg ASA PO BID, frequent mobility, TEDs. 2. Hgb improved. Medical management per Hospitalist service. 3. D/C plan per Hospitalist service - likely to ID for continued therapy. The pt's case was discussed with Dr. Bray.
[2019-02-17] MEDS: Tamsulosin 0.4 MG Cap.ER PO SCH (09:34)
[2019-02-17] MEDS: Timolol Maleate 0.5% Ophth Soln 5 ML Bottle EYEBOTH SCH (09:34)
[2019-02-17] MEDS: Sennosides 8.6 MG Tab PO SCH (09:34)
[2019-02-17] MEDS: Aspirin 325 MG Tab.EC PO SCH (09:34)
[2019-02-17] MEDS: Finasteride 5 MG Tab PO SCH (09:34)
[2019-02-17] MEDS: Sertraline 25 MG Tab PO SCH (09:35)
[2019-02-17] MEDS: Famotidine 20 MG Tab PO SCH (09:35)
[2019-02-17] MEDS: Metoprolol Tartrate 25 MG Tab PO SCH (09:35)
[2019-02-17] MEDS: levETIRAcetam 500 MG Tab PO SCH (09:35)
[2019-02-17 09:54] VITALS: BP 133/66
--- NOTE | 2019-02-17 09:54 | PCM.DCSUM1 ---
Discharge Summary - Hospital Course HPI Initial Comments: 83 year old male returns within three weeks of similar presentation with right hip fracture after falling. he denies any LOC. January 16, 2019 he previously fell. Additionally he has had a head bleed approximately [address] of the head had been scheduled for February 19, 2019. 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 The patient will be admitted for a right hip ORIF. He has been seen in the ED by ortho. Past medical history includes: subdural hemorrhage; MRSA; CVA left side; anemia; type 2 diabetes; glaucoma; paroxysmal A. fib; systolic congestive heart failure; emphysema/COPD; chronic kidney disease; BPH. PCP, Dr Montana; he is a full code. Diagnosis: Stroke: No - Discharge Data Discharge Date: 02/17/19 (Admit: 02/11/19) Discharge Disposition: DC/Tfer to SNF 03 Condition: Stable - Discharge Diagnosis/Problem(s) (1) Hypertension SNOMED Code(s): 92277340 ICD Code: I10 - ESSENTIAL (PRIMARY) HYPERTENSION Status: Chronic Priority : Medium Qualifiers: Hypertension type: essential hypertension Qualified Code(s): I10 - Essential (primary) hypertension (2) Intertrochanteric fracture, hip SNOMED Code(s): 614478420 ICD Code: S72.143A - DISPLACED INTERTROCHANTERIC FRACTURE OF UNSP FEMUR, INIT Status: Acute Priority: High (3) Congestive heart failure SNOMED Code(s): 56277477 ICD Code: I50.9 - HEART FAILURE, UNSPECIFIED Status: Chronic Priority: Medium Qualifiers: Heart failure type: unspecified Heart failure chronicity: acute on chronic Qualified Code(s): I50.9 - Heart failure, unspecified (4) Fall SNOMED Code(s): 8485459, 364916179 ICD Code: W19.XXXA - UNSPECIFIED FALL, INITIAL ENCOUNTER Status: Acute Priority: High Qualifiers: Encounter type: initial encounter Qualified Code(s): W19.XXXA - Unspecified fall, initial encounter (5) Bilateral subdural hematomas SNOMED Code(s): 37024868 ICD Code: S06.5X9A - TRAUM SUBDR HEM W LOC OF UNSP DURATION, INIT Status: Chronic Priority: Medium (6) 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 SNOMED Code(s): 50357121 ICD Code: I67.2 - CEREBRAL ATHEROSCLEROSIS; Z86.73 - PRSNL HX OF TIA (TIA), AND CEREB INFRC W/O RESID DEFICITS Status: Chronic Priority: Medium (7) Cervical radiculopathy SNOMED Code(s): 97891189 ICD Code: M54.12 - RADICULOPATHY, CERVICAL REGION Status: Chronic Priority: Medium - Patient Summary/Data Operative Procedure(s) Performed: cephalomedullary nailing of right intertrochanteric hip fracture Consults: Consultations 02/11/19 21:09 Consult to Physician [CONS] Routine 02/12/19 11:00 Consult to Occupational Therapy [OT Evaluation and Treatment] [CONS] Routine Consult to Physical Therapy [PT Evaluation and Treatment] [CONS] Routine 02/12/19 13:00 Consult to Case Management/Auto Air Conditioning Mechanic [CONS] Routine Labs Pending at D/C: None Recommended Follow-up Testing/Procedures: Follow-up with PCP within 7-10 days of discharge. Re-check Hgb on 02/19/19 with results to PCP. Hospital Course: Tate was brought into our ED via [place] [facility] after a fall on 02/11/19. Right hip was noted to be externally rotated and shortened. He reported he was unable to bear weight or move without pain. He reportedly slipped and fell on the ice about a month ago and fractured his left hip. He also reportedly had a head bleed 2 months prior and was supposed undergo a repeat head CT on February 19. X-ray of the right hip was obtained and shows an acute intertrochanteric fracture with angulation involving the right hip. There are other chronic findings also noted. Head CT was also obtained showing chronic findings and nothing acute. It is noted that the previous intracranial hemorrhage has resolved. He underwent cephalomedullary nailing of the right intertrochanteric hip fracture on 02/12/[address] Bray. Murphy catheter was placed prior to surgery and was removed after surgery. His Flomax dose was increased from once a day to twice a day by Dr. Degroot. He did have some noted hypotension along with a fluctuating hemoglobin after discharge. On 02/16/19 hemoglobin was noted to be 7.8 and decision was made to infuse 2 units PRBCs with great response. On day of discharge hemoglobin was noted to be 10.1. He did have continued weakness although it did improve throughout his stay. He worked heavily with PT and OT. Recommendation was for SNF rehabilitation stay at discharge. Family and patient were accepting of this idea. He was accepted to [facility]. He did have one episode of Epistaxis while here. Family noted it was right after the patient blew his nose. Nursing utilize Domingo- Synephrine to control this. His dose of aspirin that evening was held. No further issues. He was discharged on 650 mg by mouth every 6 hour Tylenol as needed for pain, 325/5 mg Camby one tablet by mouth every 6 hour as needed for pain, 325 mg by mouth aspirin twice a day. 100 mg by mouth Colace daily, and 0.4 mg by mouth twice a day Flomax as mentioned earlier. His Humalog was changed to low-dose sliding scale per protocol. He was instructed to hold his home dose tramadol until completing the Camby. He should continue to ambulate frequently and utilizes IS. He has a follow-up scheduled appointment with Dr. Bray's office. He should follow-up with his PCP within one week of discharge. He should have his Hgb drawn on 12/22/[address] Montana, his PCP. - Patient Instructions Diet: Usual Diet as Tolerated Activity: Apply Ice, As Tolerated, Elevate Extremity Activity, Other: 50% weight bearing through right leg Driving: Do Not Drive Showering/Bathing: May Shower Wound/Incision Care: Keep Operative Site/Wound Site Clean and Dry, Do NOT Change Dressing Notify Provider of: Fever, Increased Pain, Swelling and Redness, Drainage, Nausea and/or Vomiting Other/Special Instructions: Have help with mobility as needed. Please try to be active. This helps to prevent blood clots. Please use the aspirin twice daily to help prevent blood clots. - Discharge Plan *PRESCRIPTION DRUG MONITORING PROGRAM REVIEWED*: Not Applicable *COPY OF PRESCRIPTION DRUG MONITORING REPORT IN PATIENT CHHAYA: Not Applicable Prescriptions/Med Rec: Acetaminophen [Tylenol] 650 mg PO Q6H PRN #20 tablet PRN Reason: Pain/Fever Acetaminophen/HYDROcodone [Camby 325-5 MG] 1 tab PO Q6H PRN #16 tablet PRN Reason: Pain (Moderate 4-6) Aspirin [Ecotrin] 325 mg PO BID #65 tab.ec Docusate Sodium [Colace] 100 mg PO DAILY #15 cap Insulin Lispro [HumaLOG] See Protocol SQ WITHMEALSANDBED #4 vial Tamsulosin [Flomax] 0.4 mg PO BID #30 cap.er Home Medications: Home Meds Furosemide 40 mg PO DAILY 12/28/15 [History] Metoprolol Tartrate 25 mg PO BID 12/28/15 [History] Finasteride 5 mg PO DAILY 10/09/18 [History] Omeprazole 20 mg PO BIDAC 10/09/18 [History] Sennosides [Senna] 8.6 mg PO DAILY 10/09/18 [History] atorvaSTATin [Lipitor] 40 mg PO BEDTIME 10/09/18 [History] traMADol [Ultram] 50 mg PO Q8HR PRN 02/11/19 [History] Sertraline [Zoloft] 25 mg PO DAILY 02/12/19 [History] Timolol Maleate [Timoptic 0.5% Ophth Soln] 1 drop EYEBOTH DAILY 02/12/19 [ History] levETIRAcetam [Keppra] 500 mg PO BID 02/12/19 [History] metFORMIN HCl [Metformin HCl ER] 500 mg PO DAILY 02/12/19 [History] Acetaminophen [Tylenol] 650 mg PO Q6H PRN #20 tablet 02/17/19 [Rx] Acetaminophen/HYDROcodone [Camby 325-5 MG] 1 tab PO Q6H PRN #16 tablet 02/17/19 [Rx] Aspirin [Ecotrin] 325 mg PO BID #65 tab.ec 02/17/19 [Rx] Docusate Sodium [Colace] 100 mg PO DAILY #15 cap 02/17/19 [Rx] Insulin Lispro [HumaLOG] See Protocol SQ WITHMEALSANDBED #4 vial 02/17/19 [Rx] Tamsulosin [Flomax] 0.4 mg PO BID #30 cap.er 02/17/19 [Rx] Oxygen Therapy Mode: Room Air Patient Handouts: Hip Fracture, Heart Failure Referrals: Shubham Bray MD [Physician] - (Please see Janine Ann PA-C as scheduled. ) Jarad Montana MD [Primary Care Provider] - 02/23/19 9:30 am (February 23 at 0930) Janine Ann PA-C [Physician Esthetician] - 02/24/19 2:45 pm - Discharge Summary/Plan Comment DC Time >30 min.: Yes (45 minutes ) - General Info Date of Service: 02/17/19 Admission Dx/Problem (Free Text: Admission Diagnosis/Problem Admission Diagnosis/Problem Intertrochanteric fracture of right femur Subjective Update: In to see Tate. He is sitting up in bed. PT and OT are working with him and said he has made great strides over the past few days. He's had some dramatic improvement today however he is still quite weak. Still recommending's SNF placement. Family and patient updated on discharge plan and are in agreement. He'll be discharged today. Functional Status: Reports: Pain Controlled, Tolerating Diet, Urinating, Incentive Spirometry. Denies: New Symptoms - Review of Systems General: Reports: Weakness. Denies: Fever, Fatigue, Malaise, Chills HEENT: Reports: No Symptoms. Denies: Headaches, Sore Throat Pulmonary: Reports: No Symptoms. Denies: Shortness of Breath, Cough, Sputum, Wheezing Cardiovascular: Reports: No Symptoms. Denies: Chest Pain, Palpitations, Dyspnea on Exertion, Edema Gastrointestinal: Reports: No Symptoms. Denies: Abdominal Pain, Constipation, Diarrhea, Nausea, Vomiting Genitourinary: Reports: No Symptoms. Denies: Pain Musculoskeletal: Reports: Leg Pain Skin: Reports: No Symptoms. Denies: Cyanosis Neurological: Reports: Confusion (Occasional - none currently ), Difficulty Walking, Weakness, Gait Disturbance. Denies: Headache, Numbness, Tremors, Trouble Speaking, Change in Speech Psychiatric: Reports: No Symptoms - Patient Data Vitals - Most Recent: Last Vital Signs Temp 98.2 F 02/17/19 03:53 Pulse 94 02/17/19 09:35 Resp 16 02/17/19 03:53 BP 133/66 02/17/19 09:35 Pulse Ox 95 02/17/19 03:53 Weight - Most Recent: 185 lb 12.8 oz I&O - Last 24 hours: Intake & Output 02/16/19 02/17/19 02/17/19 22:59 06:59 14:59 Intake Total 1440 350 Output Total 480 925 Balance 960 -575 Lab Results - Last 24 hrs: Laboratory Results - last 24 hr 04/12/0602/16/19 02/16/19 Range/Units 04:59 11:07 16:46 WBC (4.23-9.07) K/mm3 RBC (4.63-6.08) M/mm3 Hgb (13.7-17.5) gm/L Hct (40.1-51.0) % MCV (79.0-92.2) fl MCH (25.7-32.2) pg MCHC (32.2-35.5) g/dl RDW Std Deviation (35.1-43.9) fL Plt Count (163-337) K/mm3 MPV (9.4-12.3) fl Neut % (Auto) (34.0-67.9) % Lymph % (Auto) (21.8-53.1) % [place] % (Auto) (5.3-12.2) % Eos % (Auto) (0.8-7.0) Baso % (Auto) (0.1-1.2) % Neut # (Auto) (1.78-5.38) K/mm3 Lymph # (Auto) (1.32-3.57) K/mm3 [place] # (Auto) (0.30-0.82) K/mm3 Eos # (Auto) (0.04-0.54) K/mm3 Baso # (Auto) (0.01-0.08) K/mm3 Sodium (136-145) mEq/L Potassium (3.5-5.1) mEq/L Chloride (98-107) mEq/L Carbon Dioxide (21-32) mEq/L Anion Gap (5-15) BUN (7-18) mg/dL Creatinine (0.7-1.3) mg/dL Est Cr Clr Drug Dosing mL/min Estimated GFR (MDRD) (>60) mL/min BUN/Creatinine Ratio (14-18) Glucose (83-115) mg/dL POC Glucose 205 H 123 H (83-110) mg/dL Calcium (8.5-10.1) mg/dL C-Reactive Protein (<1.0) mg/dL Blood Type A POSITIVE Gel Antibody Screen Negative Crossmatch See Detail 02/16/19 02/17/19 02/17/19 Range/Units 21:35 05:30 05:30 WBC 6.62 (4.23-9.07) K/mm3 RBC 3.40 L (4.63-6.08) M/mm3 Hgb 10.1 L (13.7-17.5) gm/L Hct 30.7 L (40.1-51.0) % MCV 90.3 (79.0-92.2) fl MCH 29.7 (25.7-32.2) pg MCHC 32.9 (32.2-35.5) g/dl RDW Std Deviation 49.5 H (35.1-43.9) fL Plt Count 156 L (163-337) K/mm3 MPV 11.9 (9.4-12.3) fl Neut % (Auto) 61.7 (34.0-67.9) % Lymph % (Auto) 24.3 (21.8-53.1) % [place] % (Auto) 10.9 (5.3-12.2) % Eos % (Auto) 2.4 (0.8-7.0) Baso % (Auto) 0.5 (0.1-1.2) % Neut # (Auto) 4.09 (1.78-5.38) K/mm3 Lymph # (Auto) 1.61 (1.32-3.57) K/mm3 [place] # (Auto) 0.72 (0.30-0.82) K/mm3 Eos # (Auto) 0.16 (0.04-0.54) K/mm3 Baso # (Auto) 0.03 (0.01-0.08) K/mm3 Sodium 142 (136-145) mEq/L Potassium 3.8 (3.5-5.1) mEq/L Chloride 106 (98-107) mEq/L Carbon Dioxide 27 (21-32) mEq/L Anion Gap 12.8 (5-15) BUN 14 (7-18) mg/dL Creatinine 0.7 (0.7-1.3) mg/dL Est Cr Clr Drug Dosing 77.15 mL/min Estimated GFR (MDRD) > 60 (>60) mL/min BUN/Creatinine Ratio 20.0 H (14-18) Glucose 117 H (83-115) mg/dL POC Glucose 144 H (83-110) mg/dL Calcium 8.0 L (8.5-10.1) mg/dL C-Reactive Protein 11.8 H* (<1.0) mg/dL Blood Type Gel Antibody Screen Crossmatch 02/17/19 Range/Units 06:47 WBC (4.23-9.07) K/mm3 RBC (4.63-6.08) M/mm3 Hgb (13.7-17.5) gm/L Hct (40.1-51.0) % MCV (79.0-92.2) fl MCH (25.7-32.2) pg MCHC (32.2-35.5) g/dl RDW Std Deviation (35.1-43.9) fL Plt Count (163-337) K/mm3 MPV (9.4-12.3) fl Neut % (Auto) (34.0-67.9) % Lymph % (Auto) (21.8-53.1) % [place] % (Auto) (5.3-12.2) % Eos % (Auto) (0.8-7.0) Baso % (Auto) (0.1-1.2) % Neut # (Auto) (1.78-5.38) K/mm3 Lymph # (Auto) (1.32-3.57) K/mm3 [place] # (Auto) (0.30-0.82) K/mm3 Eos # (Auto) (0.04-0.54) K/mm3 Baso # (Auto) (0.01-0.08) K/mm3 Sodium (136-145) mEq/L Potassium (3.5-5.1) mEq/L Chloride (98-107) mEq/L Carbon Dioxide (21-32) mEq/L Anion Gap (5-15) BUN (7-18) mg/dL Creatinine (0.7-1.3) mg/dL Est Cr Clr Drug Dosing mL/min Estimated GFR (MDRD) (>60) mL/min BUN/Creatinine Ratio (14-18) Glucose (83-115) mg/dL POC Glucose 114 H (83-110) mg/dL Calcium (8.5-10.1) mg/dL C-Reactive Protein (<1.0) mg/dL Blood Type Gel Antibody Screen Crossmatch Med Orders - Current: Current Medications Acetaminophen (Tylenol) 650 mg PO Q6H PRN PRN Reason: Pain/Fever Last Admin: 02/17/19 06:49 Dose: 650 mg Hydrocodone Bitart/Acetaminophen (Camby 325-5 Mg) 1 tab PO Q4H PRN PRN Reason: Pain (moderate 4-6) Last Admin: 02/14/19 16:58 Dose: 1 tab Aspirin (Ecotrin) 325 mg PO BID [facility] Last Admin: 02/17/19 09:34 Dose: 325 mg Dextrose/Water (Dextrose 50% In Water) 50 ml IVPUSH ASDIRECTED PRN PRN Reason: Hypoglycemia Famotidine (Pepcid) 20 mg PO BID [facility] Last Admin: 02/17/19 09:35 Dose: 20 mg Finasteride (Proscar) 5 mg PO DAILY [facility] Last Admin: 02/17/19 09:34 Dose: 5 mg Hydralazine HCl (Apresoline) 10 mg IVPUSH Q6H PRN PRN Reason: Hypertension Hydromorphone HCl (Dilaudid) 0.5 mg IVPUSH Q4H PRN PRN Reason: Pain (moderate 4-6) Last Admin: 02/14/19 23:55 Dose: 0.5 mg Hydromorphone HCl (Dilaudid) 0.5 mg IVPUSH Q6H PRN PRN Reason: Pain (severe 7-10) Insulin Human Lispro (Humalog) 0 unit SUBCUT QIDACANDBED [facility]; Protocol Last Admin: 02/17/19 07:05 Dose: Not Given Levetiracetam (Keppra) 500 mg PO BID [facility] Last Admin: 02/17/19 09:35 Dose: 500 mg [facility] Last Admin: 02/17/19 06:49 Dose: 250 mg Metoprolol Tartrate (Lopressor) 5 mg IVPUSH Q6H PRN PRN Reason: HR>110 Last Admin: 02/14/19 23:47 Dose: 5 mg Metoprolol Tartrate (Lopressor) 25 mg PO BID [facility] Last Admin: 02/17/19 09:35 Dose: 25 mg Oxycodone/Acetaminophen (Percocet 325-5 Mg) 1 - 2 tab PO Q4H PRN PRN Reason: Pain (severe 7-10) Last Admin: 02/15/19 03:19 Dose: 2 tab Rosuvastatin Calcium (Crestor) 10 mg PO BEDTIME [facility] Last Admin: 02/16/19 21:40 Dose: 10 mg Senna (Senna) 8.6 mg PO DAILY [facility] Last Admin: 02/17/19 09:34 Dose: 8.6 mg Sertraline HCl (Zoloft) 25 mg PO DAILY [facility] Last Admin: 02/17/19 09:35 Dose: 25 mg Tamsulosin HCl (Flomax) 0.4 mg PO BID [facility] Last Admin: 02/17/19 09:34 Dose: 0.4 mg Timolol Maleate (Timoptic 0.5% Ophth Soln) 0 ml EYEBOTH DAILY [facility] Last Admin: 02/17/19 09:34 Dose: 1 drop Discontinued Medications Hydrocodone Bitart/Acetaminophen (Camby 325-5 Mg) 1 tab PO Q6H PRN PRN Reason: Pain (moderate 4-6) Last Admin: 02/12/19 13:11 Dose: 1 tab Al Hydroxide/Mg Hydroxide (Mag-Al Plus) 15 ml PO TID@0800,1200,1700 [facility] Last Admin: 02/15/19 07:41 Dose: Not Given Bupivacaine HCl (Marcaine 0.25%) Confirm Administered Dose 30 ml .ROUTE .STK- MED ONE Stop: 02/12/19 06:29 Last Admin: 02/12/19 08:55 Dose: 20 ml Bupivacaine HCl (Sensorcaine-Mpf 0.75%) Confirm Administered Dose 30 ml .ROUTE .STK-MED ONE Stop: 02/12/19 07:08 Dexamethasone (Dexamethasone) Confirm Administered Dose 4 mg .ROUTE .STK-MED ONE Stop: 02/12/19 08:20 Ephedrine Sulfate (Ephedrine In Ns) Confirm Administered Dose 25 mg .ROUTE .STK- MED ONE Stop: 02/12/19 08:19 Fentanyl (Sublimaze) Confirm Administered Dose 100 mcg .ROUTE .STK-MED ONE Stop: 02/12/19 07:02 Fentanyl (Sublimaze) 50 mcg IVPUSH Q5M PRN PRN Reason: Pain Stop: 02/12/19 12:00 Furosemide (Lasix) 40 mg IVPUSH NOW ONE Stop: 02/16/19 13:44 Last Admin: 02/16/19 13:54 Dose: 40 mg Hydromorphone HCl (Dilaudid) 0.5 mg IVPUSH ONETIME ONE Stop: 02/11/19 14:21 Last Admin: 02/11/19 14:22 Dose: 0.5 mg Hydromorphone HCl (Dilaudid) Confirm Administered Dose 0.5 mg .ROUTE .STK-MED ONE Stop: 02/11/19 14:20 Last Admin: 02/11/19 14:26 Dose: Not Given Hydromorphone HCl (Dilaudid) 0.5 mg IVPUSH NOW STA Stop: 02/11/19 14:21 Last Admin: 02/11/19 14:47 Dose: 0.5 mg Hydromorphone HCl (Dilaudid) 0.5 mg IVPUSH ONETIME STA Stop: 02/11/19 15:57 Last Admin: 02/11/19 16:00 Dose: 0.5 mg Hydromorphone HCl (Dilaudid) Confirm Administered Dose 0.5 mg .ROUTE .STK-MED ONE Stop: 02/11/19 16:00 Last Admin: 02/11/19 18:29 Dose: Not Given Hydromorphone HCl (Dilaudid) Confirm Administered Dose 0.5 mg .ROUTE .STK-MED ONE Stop: 02/11/19 18:50 Last Admin: 02/11/19 19:03 Dose: Not Given Hydromorphone HCl (Dilaudid) 0.5 mg IVPUSH ONETIME STA Stop: 02/11/19 18:46 Last Admin: 02/11/19 18:45 Dose: 0.5 mg Hydromorphone HCl (Dilaudid) 0.5 mg IVPUSH Q4H PRN PRN Reason: Pain (moderate 4-6) Hydromorphone HCl (Dilaudid) 0.5 mg IVPUSH Q15M PRN PRN Reason: severe pain Stop: 02/12/19 12:00 Sodium Chloride (Sodium Chloride 0.45%) 1,000 mls @ 75 mls/hr IV ASDIRECTED JEFF Stop: 02/12/19 02:45 Last Admin: 02/11/19 22:32 Dose: 75 mls/hr Lidocaine HCl (Xylocaine-Mpf 1%) Confirm Administered Dose 4 mls @ as directed .ROUTE .STK-MED ONE Stop: 02/12/19 07:03 Lidocaine HCl (Xylocaine-Mpf 1%) Confirm Administered Dose 5 mls @ as directed .ROUTE .STK-MED ONE Stop: 02/12/19 07:08 Clindamycin Phosphate 900 mg/ (Sodium Chloride) 106 mls @ 212 mls/hr IV ONETIME ONE Stop: 02/12/19 08:14 Last Admin: 02/12/19 17:58 Dose: Not Given Lactated Ringer's (Ringers, Lactated) 1,000 mls @ 125 mls/hr IV ASDIRECTED [facility] Last Admin: 02/12/19 14:01 Dose: 125 mls/hr Clindamycin Phosphate 900 mg/ (Sodium Chloride) 106 mls @ 212 mls/hr IV Q6H [facility] Stop: 02/13/19 08:29 Last Admin: 02/13/19 09:27 Dose: 212 mls/hr Sodium Chloride (Normal Saline) 250 mls @ 999 mls/hr IV ONETIME ONE Stop: 02/13/19 11:00 Last Admin: 02/13/19 10:51 Dose: 999 mls/hr Sodium Chloride (Normal Saline) 1,000 mls @ 100 mls/hr IV ASDIRECTED [facility] Last Admin: 02/13/19 11:12 Dose: 100 mls/hr Magnesium Sulfate 4 gm/ Premix 50 mls @ 12.5 mls/hr IV ONETIME ONE Stop: 02/13/19 18:14 Last Admin: 02/13/19 15:39 Dose: 12.5 mls/hr Sodium Chloride (Normal Saline) 1,000 mls @ 75 mls/hr IV ASDIRECTED [facility] Last Admin: 02/16/19 05:15 Dose: 75 mls/hr Magnesium Sulfate 2 gm/ Premix 50 mls @ 25 mls/hr IV ONETIME ONE Stop: 02/14/19 12:32 Last Admin: 02/14/19 12:06 Dose: 25 mls/hr Magnesium Sulfate 2 gm/ Premix 50 mls @ 25 mls/hr IV ONETIME ONE Stop: 02/15/19 18:17 Last Admin: 02/15/19 16:56 Dose: 25 mls/hr Sodium Chloride (Normal Saline) 250 mls @ 125 mls/hr IV ASDIRECTED [facility] Stop: 02/16/19 23:00 Sodium Chloride (Normal Saline) Confirm Administered Dose 250 mls @ as directed .ROUTE .STK-MED ONE Stop: 02/16/19 10:09 Last Admin: 02/16/19 10:54 Dose: Not Given Ketamine HCl (Ketalar) Confirm Administered Dose 500 mg .ROUTE .STK-MED ONE Stop: 02/12/19 07:02 Ketorolac Tromethamine (Toradol) 15 mg IVPUSH ONETIME ONE Stop: 02/12/19 14:54 Last Admin: 02/12/19 15:10 Dose: 15 mg Magnesium Hydroxide (Milk Of Magnesia) 30 ml PO ONETIME ONE Stop: 02/14/19 08:31 Last Admin: 02/14/19 09:01 Dose: 30 ml Metoprolol Tartrate (Lopressor) 12.5 mg PO BID [facility] Last Admin: 02/14/19 08:58 Dose: 12.5 mg Midazolam HCl (Versed 1 Mg/Ml) Confirm Administered Dose 2 mg .ROUTE .[facility]-MED ONE Stop: 02/12/19 07:02 Ondansetron HCl (Zofran) Confirm Administered Dose 4 mg .ROUTE .ST-MED ONE Stop: 02/12/19 08:20 Phenylephrine HCl (Phenylephrine In Ns 100 Mcg/Ml) Confirm Administered Dose 1 mg .ROUTE .STK-MED ONE Stop: 02/12/19 08:19 Phenylephrine HCl ([place]-Synephrine 0.25% Mild Nasal Kinta) 0 ml NASLF ONETIME ONE Stop: 02/16/19 09:59 Last Admin: 02/16/19 10:11 Dose: 1 applic Propofol (Diprivan 20 Ml) Confirm Administered Dose 600 mg .ROUTE .STK-MED ONE Stop: 02/12/19 07:02 Tamsulosin HCl (Flomax) 0.4 mg PO BEDTIME [facility] Last Admin: 02/13/19 21:57 Dose: 0.4 mg - Exam Quality Assessment: Reports: DVT Prophylaxis General: Reports: Alert, Oriented, Cooperative, No Acute Distress HEENT: Reports: Pupils Equal, Pupils Reactive, EOMI, Mucous Membr. Moist/[place] Neck: Reports: Supple, Trachea Midline, No JVD Lungs: Reports: Clear to Auscultation, Normal Respiratory Effort Cardiovascular: Reports: Regular Rate, Regular Rhythm GI/Abdominal Exam: Normal Bowel Sounds, Soft, Non-Tender, No Organomegaly, No Distention (Male) Exam: Deferred Rectal (Males) Exam: Deferred Back Exam: Reports: Normal Inspection, Full Range of Motion Extremities: Non-Tender, No Pedal Edema, Normal Capillary Refill, Leg Pain, Limited Range of Motion, Other (Bandage in palce on right leg. Cooling pack in place ) Skin: Reports: Warm, Dry, Intact Wound/Incisions: Reports: Dressing Dry and Intact, No Drainage Neurological: Reports: No New Focal Deficit Psy/Mental Status: Reports: Alert, Normal Affect, Normal Mood
[2019-02-17] MEDS: Acetaminophen/HYDROcodone 325-5 MG Tab PO PRN (11:10)
[2019-02-17] MEDS ORDERED: HYDROmorphone 1 MG/ML Syringe IVPUSH ONE (12:16)
== END 2019-02-17 13:32 | DRG 481 ==
LOC: JD.ED 13:31 → JD.MS 17:59
PROVIDERS: ADMIT Internal Medicine Cardiovascular Disease; ATTEND Internal Medicine Cardiovascular Disease
PROC: 0QS634Z Reposition Right Upper Femur with Internal Fixation Device, Percutaneous Approach (ICD-10-PCS; principal; 2019-02-12)
PROC: 30233N1 Transfusion of Nonautologous Red Blood Cells into Peripheral Vein, Percutaneous Approach (ICD-10-PCS; 2019-02-16)
DX: S72.141A Displaced intertrochanteric fracture of right femur, initial encounter for closed fracture (principal); I13.0 Hypertensive heart and chronic kidney disease with heart failure and stage 1 through stage 4 chronic kidney disease, or unspecified chronic kidney disease; I10 Essential (primary) hypertension; F05 Delirium due to known physiological condition; I50.22 Chronic systolic (congestive) heart failure; W18.30XA Fall on same level, unspecified, initial encounter; E11.22 Type 2 diabetes mellitus with diabetic chronic kidney disease; R04.0 Epistaxis; I95.9 Hypotension, unspecified; D64.9 Anemia, unspecified; N18.9 Chronic kidney disease, unspecified; J43.9 Emphysema, unspecified; M25.551 Pain in right hip; I48.0 Paroxysmal atrial fibrillation; E78.00 Pure hypercholesterolemia, unspecified; I67.2 Cerebral atherosclerosis; M54.12 Radiculopathy, cervical region; N40.0 Benign prostatic hyperplasia without lower urinary tract symptoms; K52.9 Noninfective gastroenteritis and colitis, unspecified; H54.7 Unspecified visual loss; Z86.73 Personal history of transient ischemic attack (TIA), and cerebral infarction without residual deficits; Z90.49 Acquired absence of other specified parts of digestive tract; Z88.0 Allergy status to penicillin; Z79.899 Other long term (current) drug therapy; Z96.649 Presence of unspecified artificial hip joint; Z96.659 Presence of unspecified artificial knee joint; Z86.14 Personal history of Methicillin resistant Staphylococcus aureus infection; Z85.51 Personal history of malignant neoplasm of bladder
CPT/HCPCS: 36415; 70450; 73502; 80053; 83880; 84484; 85007; 85027; 85610; 96374; 96376; 99285; J1170 ×3; 01230; 36430; 51701; 51702; 51798; 71045; 71045-26; 76000; 76000-26; 80048; 81001; 82962; 83036; 83735; 85018; 85025; 85730; 86140; 86850; 86900; 86901; 86922; 87641; 93005; 94760; 97110-GP; 97162-GP; 97166-GO; 97530-GO; 97530-GP; 97535-GO; A9270-GY; C1713; C1776; J1100; J1815-GY; J1885; J1940; J2001; J2250; J2370; J2405; J2704; J3010; J3475; J3490; J7030; J7040; J7050; J7120; P9016

== ENCOUNTER 2019-10-29 21:22 | Emergency (ER) | payer MEDICARE, OTHER ==
[2019-10-29 21:29] VITALS: BP 157/77; PULSE 68
--- NOTE | 2019-10-29 21:41 | EDM.PDOC ---
ED HPI GENERAL MEDICAL PROBLEM - General Chief Complaint: Lower Extremity Injury/Pain Stated Complaint: [facility] Time Seen by Provider: 10/29/19 21:35 Source of Information: Reports: Patient, EMS History Limitations: Reports: No Limitations - History of Present Illness INITIAL COMMENTS - FREE TEXT/NARRATIVE: 84-year-old male is brought to the ED by [facility]. Patient states he was sitting in his easy chair and went to get up and either lost his balance or left leg gave out on him causing him to fall gingerly to the floor. He states it is a carpeted would floor. He developed severe pain in his left hip and was unable to get up from the floor on his own volition. Paramedics were summoned and identified that he could not get up even with their help. He presents to the ED with severe left inguinal groin pain and hip pain. He has received 25 g of fentanyl IV en route to the hospital. Denies hurting his head and neck chest arms back or legs. He has had bilateral total knee replacements and previous fall and fracture right hip requiring open reduction internal fixation. He denies any knowledge of prostate cancer. 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 Onset: Today Onset Date: 10/29/19 Onset Time: 20:00 Duration: Minutes: Location: Reports: Lower Extremity, Left (Pain left hip and groin.) Quality: Reports: Ache (On 2 Addis B doesn't move.) Severity: Moderate (Worse with movement) Improves with: Reports: Rest Worsens with: Reports: Movement (Any attempt to roll the hip or try and lifted off the gurney causes exquisite pain in his hip.) Context: Reports: Trauma. Denies: Activity, Exercise, Lifting, Sick Contact, Other Associated Symptoms: Reports: Malaise. 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: Reports: Other (see below) (Paramedics gave him 25 g of fentanyl intravenously en route to the hospital.) Left Hip Pain Score (Numeric/FACES): 7 - Related Data Allergies Allergy/AdvReac Type Severity Reaction Status Date / Time Penicillins Allergy Hives Verified 10/29/19 21:29 Home Meds: Home Meds Furosemide 40 mg PO DAILY 12/28/15 [History] Metoprolol Tartrate 25 mg PO BID 12/28/15 [History] Finasteride 5 mg PO DAILY 10/09/18 [History] Omeprazole 20 mg PO BIDAC 10/09/18 [History] atorvaSTATin [Lipitor] 40 mg PO BEDTIME 10/09/18 [History] Sertraline [Zoloft] 25 mg PO DAILY 02/12/19 [History] Timolol Maleate [Timoptic 0.5% Ophth Soln] 1 drop EYEBOTH DAILY 02/12/19 [ History] Aspirin [Ecotrin EC] 325 mg PO BID #65 tab.ec 02/17/19 [Rx] Tamsulosin [Flomax] 0.4 mg PO BID #30 cap.er 02/17/19 [Rx] Past Medical History HEENT History: Reports: Glaucoma, Impaired Vision Other HEENT History: wears glasses Cardiovascular History: Reports: High Cholesterol, Hypertension Respiratory History: Reports: None Gastrointestinal History: Reports: Inflammatory Bowel Disease Other Gastrointestinal History: Hernia Genitourinary History: Reports: BPH (Still has nocturia 3 times nightly), Other (See Below) Musculoskeletal History: Reports: Arthritis Neurological History: Reports: CVA, Head Trauma, Other (See Below) 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 Psychiatric History: Reports: None Hematologic History: Reports: Other (See Below) Other Hematologic History: septic shock Immunologic History: Reports: Other (See Below) Oncologic (Cancer) History: Reports: Bladder - Past Surgical History HEENT Surgical History: Reports: Cataract Surgery, Tonsillectomy, Other (See Below) Cardiovascular Surgical History: Reports: Carotid Stents GI Surgical History: Reports: Cholecystectomy, Colonoscopy, EGD, ERCP, Hernia, Inguinal Male Surgical History: Reports: Other (See Below) Musculoskeletal Surgical History: Reports: Carpal Tunnel, Knee Replacement ( Bilateral total knee replacement.), ORIF (Open reduction internal fixation right hip.) - History Comment History Comment: family prefers we do surgery here. Informed about no neuro, cardiac or pulmonology specialists. Agrees to proceed Social & Family History - Family History Family Medical History: Noncontributory - Tobacco Use Smoking Status *Q: Never Smoker - Caffeine Use Caffeine Use: Reports: Coffee - Recreational Drug Use Recreational Drug Use: No - Living Situation & Occupation Living situation: Reports: , with Spouse Occupation: Retired Review of Systems - Review of Systems Review Of Systems: See Below Constitutional: Reports: Weakness (Legs are weak.). Denies: Chills, Diaphoresis , Fever Eyes: Reports: Decreased Acuity, Glasses Ears: Reports: Other Nose: Reports: No Symptoms Mouth/Throat: Reports: No Symptoms Respiratory: Reports: Shortness of Breath. Denies: Wheezing, Pleuritic Chest Pain (On exertion.), Cough, Sputum, Hemoptysis GI/Abdominal: Reports: No Symptoms. Denies: Abdominal Pain, Bloody Stool, Constipation, Decreased Appetite, Diarrhea, Hematemesis, Nausea, Vomiting Genitourinary: Reports: Other (Urinary frequency due to BPH. Nocturia 3 sometimes 4.) Musculoskeletal: Reports: Neck Pain, Shoulder Pain, Back Pain, Joint Pain (Both total knee replacements.), Other Skin: Reports: No Symptoms (Right hip open reduction internal fixation causes some pain periodically) Neurological: Reports: Dizziness (Occasional dizzy spells. Feels), Difficulty Walking (Both lower extremities.), Weakness, Gait Disturbance. Denies: Confusion, Headache, Numbness, Syncope, Tingling, Trouble Speaking Psychiatric: Reports: No Symptoms (He blames his knees and his right hip for gait disturbance.) ED EXAM, GENERAL - Physical Exam Exam: See Below Exam Limited By: No Limitations General Appearance: Alert, WD/WN, Mild Distress, Other (Answers all questions quite appropriately. Vital signs show temperature 37.2 pulse of 68 in sinus respiratory 16 BP is 157/77 O2 sats 93% on room air.) Eye Exam: Bilateral Eye: Normal Inspection, PERRL Throat/Mouth: Normal Inspection, Normal Lips, Normal Oropharynx Head: Atraumatic, Normocephalic Neck: Normal Inspection, Limited Range of Motion, Tender Lateral. No: Lymphadenopathy (L), Lymphadenopathy (R) Respiratory/Chest: Lungs Clear, Decreased Breath Sounds. No: Normal Breath Sounds, Respiratory Distress, Rales (Sounds are mildly decreased the lower 20% of lung jimenez bilaterally.), Rhonchi, Wheezing Cardiovascular: Regular Rate, Rhythm, No Edema, No Gallop, No Murmur, No Rub. No: Normal Peripheral Pulses Peripheral Pulses: 1+: Posterior Tibial (L), Posterior Tibial (R), Dorsalis Pedis (L), Dorsalis Pedis (R) GI/Abdominal: Normal Bowel Sounds, Soft, Non-Tender, No Organomegaly, No Abnormal Bruit, No Mass, Pelvis Stable, Other (He has a long midline incision from epigastrium to the pubic symphysis. He claims that he had his gallbladder out through this incision. It appears this was an exploratory laparotomy but he denies having any other problems. He did develop a ventral hernia and apparently has a mesh graft in his abdominal wall.) Back Exam: Decreased Range of Motion, Vertebral Tenderness (Mild paravertebral tenderness but no significant pain.). No: CVA Tenderness (L), CVA Tenderness (R ) Extremities: Other (He's had bilateral total knee replacements. He has open reduction internal fixation scarring right lateral hip. He is unable to lift the left leg off the gurney. He is unable to tolerate any internal/external rotation of the left hip and pain is felt primarily in the groin. Strongly suggestive of hip fracture. There is perhaps very slight external rotation on the left foot. No increased pain on the left side with internal/external rotation of the right hip which is extremely limited.) Psychiatric: Normal Affect, Normal Mood Skin Exam: Warm, Dry, Intact, Normal Color, No Rash EKG INTERPRETATION EKG Date: 10/29/19 Time: 20:11 Rhythm: NSR Rate (Beats/Min): 74 [place]: LAD-Left [place] Deviation P-Wave: Present (Mild left axis deviation -11.) QRS: Other (With first-degree AV block. 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 Early R-wave transition V4. Consider mild septal hypertrophy. Creased voltage throughout the extremity leads.) QT: Normal EKG Interpretation Comments: Abnormal ECG Course - Vital Signs Last Recorded V/S: Last Vital Signs Temp 37.2 C 10/29/19 21:24 Pulse 68 10/29/19 21:24 Resp 16 10/29/19 21:24 BP 157/77 H 10/29/19 21:24 Pulse Ox 93 L 10/29/19 21:24 - Orders/Labs/Meds Orders: Active Orders 24 hr Category Date Time Status Blood Glucose Check, Bedside [RC] ONETIME Care 10/29/19 21:37 Active EKG Documentation Completion [RC] STAT Care 10/29/19 21:36 Active Insert Murphy Catheter [Insert Urinary Catheter] [OM.PC] Care 10/29/19 23:00 Ordered Q24H Oxygen Therapy [RC] ASDIRECTED Care 10/29/19 22:37 Active Urinary Catheter Assessment [RC] ASDIRECTED Care 10/29/19 23:01 Active Chest 1V Frontal [CR] Stat Exams 10/29/19 21:37 Taken Femur Min 2V Lt [CR] Stat Exams 10/29/19 21:39 Taken Pelvis 1V or 2V [CR] Stat Exams 10/29/19 21:38 Taken ANTIBODY IDENTIFICATION [BBK] Stat Lab 10/29/19 19:43 Results TYPE AND SCREEN [BBK] Stat Lab 10/29/19 19:43 Results Sodium Chloride 0.9% [Normal Saline] 1,000 ml Med 10/29/19 21:45 Active IV ASDIRECTED Medication Orders Sodium Chloride (Normal Saline) 1,000 mls @ 125 mls/hr IV ASDIRECTED JEFF Last Admin: 10/29/19 21:43 Dose: 125 mls/hr Labs: Laboratory Tests 10/29/19 10/29/19 10/29/19 Range/Units 19:43 19:43 19:43 WBC 11.92 H (4.23-9.07) K/mm3 RBC 4.35 L (4.63-6.08) M/mm3 Hgb 13.2 L (13.7-17.5) gm/dl Hct 40.5 (40.1-51.0) % MCV 93.1 H (79.0-92.2) fl MCH 30.3 (25.7-32.2) pg MCHC 32.6 (32.2-35.5) g/dl RDW Std Deviation 45.3 H (35.1-43.9) fL Plt Count 121 L (163-337) K/mm3 MPV 12.4 H (9.4-12.3) fl Neut % (Auto) 76.1 H (34.0-67.9) % Lymph % (Auto) 14.8 L (21.8-53.1) % Hardy % (Auto) 7.6 (5.3-12.2) % Eos % (Auto) 1.0 (0.8-7.0) Baso % (Auto) 0.2 (0.1-1.2) % Neut # (Auto) 9.07 H (1.78-5.38) K/mm3 Lymph # (Auto) 1.77 (1.32-3.57) K/mm3 Hardy # (Auto) 0.90 H (0.30-0.82) K/mm3 Eos # (Auto) 0.12 (0.04-0.54) K/mm3 Baso # (Auto) 0.02 (0.01-0.08) K/mm3 Manual Slide Review Abnormal smear ESR (0-15) mm/hr PT 11.4 (9.7-12.0) SECONDS INR 1.05 APTT 28 (22-31) SECONDS Sodium 141 (136-145) mEq/L Potassium 4.2 (3.5-5.1) mEq/L Chloride 106 (98-107) mEq/L Carbon Dioxide 29 (21-32) mEq/L Anion Gap 10.2 (5-15) BUN 18 (7-18) mg/dL Creatinine 0.9 (0.7-1.3) mg/dL Est Cr Clr Drug Dosing 57.00 mL/min Estimated GFR (MDRD) > 60 (>60) mL/min BUN/Creatinine Ratio 20.0 H (14-18) Glucose 112 (83-115) mg/dL Calcium 8.6 (8.5-10.1) mg/dL Magnesium 1.9 (1.8-2.4) mg/dl Total Bilirubin 1.3 H (0.2-1.0) mg/dL AST 18 (15-37) U/L ALT 26 (16-63) U/L Alkaline Phosphatase 74 (46-116) U/L Troponin I < 0.017 (0.00-0.056) ng/mL C-Reactive Protein < 0.2 (<1.0) mg/dL NT-Pro-B Natriuret Pep (0-450) pg/mL Total Protein 6.2 L (6.4-8.2) g/dl Albumin 3.5 (3.4-5.0) g/dl Globulin 2.7 gm/dL Albumin/Globulin Ratio 1.3 (1-2) Urine Color (Yellow) Urine Appearance (Clear) Urine pH (5.0-8.0) Ur Specific [place] (1.005-1.030) Urine Protein (Negative) Urine Glucose (UA) (Negative) Urine Ketones (Negative) Urine Occult Blood (Negative) Urine Nitrite (Negative) Urine Bilirubin (Negative) Urine Urobilinogen (0.2-1.0) Ur Leukocyte Esterase (Negative) Urine RBC (0-5) /hpf Urine WBC (0-5) /hpf Ur Squamous Epith Cells (0-5) /hpf Urine Bacteria (FEW) /hpf Urine Mucus (FEW) /hpf Blood Type Gel Antibody Screen 10/29/19 10/29/19 10/29/19 Range/Units 19:43 19:43 19:43 WBC (4.23-9.07) K/mm3 RBC (4.63-6.08) M/mm3 Hgb (13.7-17.5) gm/dl Hct (40.1-51.0) % MCV (79.0-92.2) fl MCH (25.7-32.2) pg MCHC (32.2-35.5) g/dl RDW Std Deviation (35.1-43.9) fL Plt Count (163-337) K/mm3 MPV (9.4-12.3) fl Neut % (Auto) (34.0-67.9) % Lymph % (Auto) (21.8-53.1) % Hardy % (Auto) (5.3-12.2) % Eos % (Auto) (0.8-7.0) Baso % (Auto) (0.1-1.2) % Neut # (Auto) (1.78-5.38) K/mm3 Lymph # (Auto) (1.32-3.57) K/mm3 Hardy # (Auto) (0.30-0.82) K/mm3 Eos # (Auto) (0.04-0.54) K/mm3 Baso # (Auto) (0.01-0.08) K/mm3 Manual Slide Review ESR 7 (0-15) mm/hr PT (9.7-12.0) SECONDS INR APTT (22-31) SECONDS Sodium (136-145) mEq/L Potassium (3.5-5.1) mEq/L Chloride (98-107) mEq/L Carbon Dioxide (21-32) mEq/L Anion Gap (5-15) BUN (7-18) mg/dL Creatinine (0.7-1.3) mg/dL Est Cr Clr Drug Dosing mL/min Estimated GFR (MDRD) (>60) mL/min BUN/Creatinine Ratio (14-18) Glucose (83-115) mg/dL Calcium (8.5-10.1) mg/dL Magnesium (1.8-2.4) mg/dl Total Bilirubin (0.2-1.0) mg/dL AST (15-37) U/L ALT (16-63) U/L Alkaline Phosphatase (46-116) U/L Troponin I (0.00-0.056) ng/mL C-Reactive Protein (<1.0) mg/dL NT-Pro-B Natriuret Pep 254 (0-450) pg/mL Total Protein (6.4-8.2) g/dl Albumin (3.4-5.0) g/dl Globulin gm/dL Albumin/Globulin Ratio (1-2) Urine Color (Yellow) Urine Appearance (Clear) Urine pH (5.0-8.0) Ur Specific [place] (1.005-1.030) Urine Protein (Negative) Urine Glucose (UA) (Negative) Urine Ketones (Negative) Urine Occult Blood (Negative) Urine Nitrite (Negative) Urine Bilirubin (Negative) Urine Urobilinogen (0.2-1.0) Ur Leukocyte Esterase (Negative) Urine RBC (0-5) /hpf Urine WBC (0-5) /hpf Ur Squamous Epith Cells (0-5) /hpf Urine Bacteria (FEW) /hpf Urine Mucus (FEW) /hpf Blood Type A POSITIVE Gel Antibody Screen Positive 10/29/19 Range/Units 23:06 WBC (4.23-9.07) K/mm3 RBC (4.63-6.08) M/mm3 Hgb (13.7-17.5) gm/dl Hct (40.1-51.0) % MCV (79.0-92.2) fl MCH (25.7-32.2) pg MCHC (32.2-35.5) g/dl RDW Std Deviation (35.1-43.9) fL Plt Count (163-337) K/mm3 MPV (9.4-12.3) fl Neut % (Auto) (34.0-67.9) % Lymph % (Auto) (21.8-53.1) % Hardy % (Auto) (5.3-12.2) % Eos % (Auto) (0.8-7.0) Baso % (Auto) (0.1-1.2) % Neut # (Auto) (1.78-5.38) K/mm3 Lymph # (Auto) (1.32-3.57) K/mm3 Hardy # (Auto) (0.30-0.82) K/mm3 Eos # (Auto) (0.04-0.54) K/mm3 Baso # (Auto) (0.01-0.08) K/mm3 Manual Slide Review ESR (0-15) mm/hr PT (9.7-12.0) SECONDS INR APTT (22-31) SECONDS Sodium (136-145) mEq/L Potassium (3.5-5.1) mEq/L Chloride (98-107) mEq/L Carbon Dioxide (21-32) mEq/L Anion Gap (5-15) BUN (7-18) mg/dL Creatinine (0.7-1.3) mg/dL Est Cr Clr Drug Dosing mL/min Estimated GFR (MDRD) (>60) mL/min BUN/Creatinine Ratio (14-18) Glucose (83-115) mg/dL Calcium (8.5-10.1) mg/dL Magnesium (1.8-2.4) mg/dl Total Bilirubin (0.2-1.0) mg/dL AST (15-37) U/L ALT (16-63) U/L Alkaline Phosphatase (46-116) U/L Troponin I (0.00-0.056) ng/mL C-Reactive Protein (<1.0) mg/dL NT-Pro-B Natriuret Pep (0-450) pg/mL Total Protein (6.4-8.2) g/dl Albumin (3.4-5.0) g/dl Globulin gm/dL Albumin/Globulin Ratio (1-2) Urine Color Red H (Yellow) Urine Appearance Cloudy H (Clear) Urine pH 7.0 (5.0-8.0) Ur Specific [place] 1.020 (1.005-1.030) Urine Protein 2+ H (Negative) Urine Glucose (UA) Negative (Negative) Urine Ketones Trace H (Negative) Urine Occult Blood 3+ H (Negative) Urine Nitrite Negative (Negative) Urine Bilirubin Negative (Negative) Urine Urobilinogen 1.0 (0.2-1.0) Ur Leukocyte Esterase Negative (Negative) Urine RBC Too numerous to cnt H (0-5) /hpf Urine WBC 0-5 (0-5) /hpf Ur Squamous Epith Cells 0-5 (0-5) /hpf Urine Bacteria Few (FEW) /hpf Urine Mucus Not seen (FEW) /hpf Blood Type Gel Antibody Screen Meds: Medications Generic Name Dose Route Start Last Admin Trade Name Freq PRN Reason Stop Dose Admin Sodium Chloride 1,000 mls @ 125 mls/hr 10/29/19 21:45 10/29/19 21:43 Normal Saline IV 125 mls/hr ASDIRECTED JEFF Administration Discontinued Medications Generic Name Dose Route Start Last Admin Trade Name Freq PRN Reason Stop Dose Admin Hydromorphone HCl 0.5 mg 10/29/19 22:30 10/29/19 22:41 Dilaudid IVPUSH 10/29/19 22:31 0.5 mg ONETIME ONE Administration Ondansetron HCl 4 mg 10/29/19 22:30 10/29/19 22:41 Zofran IVPUSH 10/29/19 22:31 4 mg ONETIME ONE Administration - Radiology Interpretation Free Text/Narrative:: 84-year-old male presents to the ED after a fall at home which she reports was a very gingerly to fall to the floor. Is not sure if he lost his balance, dizzy or left leg gave out after he got up from his easy chair. At any rate he ended up on the floor and developed significant pain in his left inguinal area. He was unable to get up from the floor and his had to summon the paramedics. When medically appears that he has fractured his left hip. Complete preoperative workup will be commenced. X-rays of the pelvis left femur to be done. IV will be normal saline at 100 mils per hour. Blood sugar be checked as he is a diabetic controlled with insulin and metformin. - Re-Assessments/Exams Free Text/Narrative Re-Assessment/Exam: 10/29/19 22:22 x-rays of the pelvis are normal. They do reveal a left femoral neck fracture. This is confirmed on left femur x-ray as well. He has a prosthetic left knee. No fractures identified within the mid or distal femur. Chest x-ray reveals mildly hyperinflated lung jimenez compatible with mild COPD. Cardiac silhouette is normal. Visualized lung jimenez are clear. Custody options with the daughters and the patient and they are deciding which hospital they wish to be transferred to in [place] for definitive surgical management since we do not have orthopedic coverage at this time. 10/29/19 22:27 White count is mildly elevated at 11.92. Auto differential is 76.1% neutrophils. Hemoglobin is 13.2. Hematocrit is 40.5. Platelet count is slightly low at 121,000. 10/29/19 22:44 family has decided that they would likely O sent to [facility] in [place]. Dr. Hendrix--hospitalist has accepted care of this patient. He will be sent to that facility per ground ambulance. Sats dropped to 91% after Dilaudid 0.5 mg IV. He will be placed on oxygen at 2 L/m by nasal specks. 10/29/19 23:28 Sedimentation rate is 4. Sodium 141 with potassium of 4.2. Chloride 16 with a bicarbonate of 29. Anion gap is 10.2. BUN was 18 with a creatinine of 0.9. GFR remains greater than 60. Glucose is 112. Calcium is 8.6. Magnesium 1.9. Total bilirubin minimally elevated at 1.3. AST is 18 with ALT of 26. Alk phosphatase is 74. 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 Troponin I is less than 0.017. C-reactive protein less than 0.2. BNP is 254. Total protein is 6.2 with an albumin fraction of 3.5. Urinalysis is cloudy with 2+ proteinuria and 3+ occult blood. Numerous to count RBCs. Infection are identified. Patient has been having a lot of troubles with his urinary bladder and he may need further investigations by way of cystoscopy to look for source of hematuria. I anticipate need for Murphy catheterization is sees been in urinary retention on more than one occurrence. Blood type was A+. Antibody gel screen was negative. 10/29/19 23:[address] a Murphy catheter before the patient left the ED. Departure - Departure Time of Disposition: 23:30 Disposition: DC/Tfer to Acute Hospital 02 Condition: Fair Clinical Impression: Fall as cause of accidental injury at home as place of occurrence Qualifiers: Encounter type: initial encounter Qualified Code(s): W19.XXXA - Unspecified fall, initial encounter; Y92.009 - Unspecified place in unspecified non- institutional (private) residence as the place of occurrence of the external cause Fracture of left hip requiring operative repair Qualifiers: Encounter type: initial encounter Fracture type: closed Qualified Code(s): S72.002A - Fracture of unspecified part of neck of left femur, initial encounter for closed fracture Hematuria Qualifiers: Hematuria type: asymptomatic microscopic Qualified Code(s): R31.21 - Asymptomatic microscopic hematuria COPD (chronic obstructive pulmonary disease) Qualifiers: COPD type: emphysema - Discharge Information *PRESCRIPTION DRUG MONITORING PROGRAM REVIEWED*: Not Applicable *COPY OF PRESCRIPTION DRUG MONITORING REPORT IN PATIENT CHHAYA: Not Applicable Referrals: PCP,Unknown [Primary Care Provider] - Forms: ED Department Discharge Additional Instructions: Patient transferred to [facility] in [place] due to fall with fracture femoral neck left hip. No orthopedic services are available at this time. Sepsis Event Note - Evaluation Sepsis Screening Result: No Definite Risk - Focused Exam Vital Signs: Vital Signs Temp Pulse Resp BP Pulse Ox 10/29/19 21:24 37.2 C 68 16 157/77 H 93 L Date Exam was Performed: 10/29/19 Time Exam was Performed: 23:33 - My Orders Last 24 Hours: My Active Orders 10/29/19 19:43 ANTIBODY IDENTIFICATION [BBK] Stat TYPE AND SCREEN [BBK] Stat 10/29/19 21:36 EKG Documentation Completion [RC] STAT 10/29/19 21:37 Blood Glucose Check, Bedside [RC] ONETIME Chest 1V Frontal [CR] Stat 10/29/19 21:38 Pelvis 1V or 2V [CR] Stat 10/29/19 21:39 Femur Min 2V Lt [CR] Stat 10/29/19 21:45 Sodium Chloride 0.9% [Normal Saline] 1,000 ml IV ASDIRECTED 10/29/19 22:37 Oxygen Therapy [RC] ASDIRECTED 10/29/19 23:00 Insert Murphy Catheter [Insert Urinary Catheter] [OM.PC] Q24H 10/29/19 23:01 Urinary Catheter Assessment [RC] ASDIRECTED - Assessment/Plan Last 24 Hours: My Active Orders 10/29/19 19:43 ANTIBODY IDENTIFICATION [BBK] Stat TYPE AND SCREEN [BBK] Stat 10/29/19 21:36 EKG Documentation Completion [RC] STAT 10/29/19 21:37 Blood Glucose Check, Bedside [RC] ONETIME Chest 1V Frontal [CR] Stat 10/29/19 21:38 Pelvis 1V or 2V [CR] Stat 10/29/19 21:39 Femur Min 2V Lt [CR] Stat 10/29/19 21:45 Sodium Chloride 0.9% [Normal Saline] 1,000 ml IV ASDIRECTED 10/29/19 22:37 Oxygen Therapy [RC] ASDIRECTED 10/29/19 23:00 Insert Murphy Catheter [Insert Urinary Catheter] [OM.PC] Q24H 10/29/19 23:01 Urinary Catheter Assessment [RC] ASDIRECTED
[2019-10-29] MEDS ORDERED: Sodium Chloride 0.9% 1,000 ML IV SCH (21:45)
[2019-10-29] MEDS ORDERED: Ondansetron 4 MG/2 ML SDV IVPUSH ONE (22:30)
[2019-10-29] MEDS ORDERED: HYDROmorphone 0.5 MG/0.5 ML Syringe IVPUSH ONE (22:30)
--- NOTE | 2019-10-30 09:43 | CR ---
Chest: Frontal view of the chest was obtained. Comparison: Previous chest x-ray of 02/12/19. Heart size and mediastinum are normal. Lungs are clear. Previous cervical spine surgery is noted. Impression: 1. Nothing acute is seen on frontal chest x-ray. Diagnostic code #1 This report was dictated in [place] Standard Time
--- NOTE | 2019-10-30 09:44 | CR ---
Pelvis: AP view of the pelvis was obtained. Comparison: Previous right hip exam of 02/11/19. Slightly impacted subcapital fracture within the left hip is again noted. Old healed intertrochanteric fracture within the right hip with orthopedic hardware. Bony structures are osteopenic. No other acute finding is seen. Vascular calcification is noted. Impression: 1. Slightly impacted subcapital fracture within the left hip. 2. Old healed fracture within the right hip. Orthopedic hardware of the right hip. 3. Osteopenia and vascular calcification. Diagnostic code #3 This report was dictated in [place] Standard Time
--- NOTE | 2019-10-30 09:44 | CR ---
Left femur: AP and lateral views of the left femur were obtained. Comparison: No previous study. Findings suspicious for subcapital fracture with impaction. Knee prosthesis is noted. No additional fracture or other bony abnormality is seen. Vascular calcification is noted. Impression: 1. Findings suspicious for slightly impacted subcapital fracture within the left hip. 2. Other findings believed to be incidental. Diagnostic code #3 This report was dictated in [place] Standard Time
== END 2019-10-29 23:30 ==
LOC: JD.ED 21:22
DX: S72.012A Unspecified intracapsular fracture of left femur, initial encounter for closed fracture (principal); I10 Essential (primary) hypertension; E11.9 Type 2 diabetes mellitus without complications; E78.00 Pure hypercholesterolemia, unspecified; Z86.73 Personal history of transient ischemic attack (TIA), and cerebral infarction without residual deficits; Z88.0 Allergy status to penicillin; Z79.82 Long term (current) use of aspirin; Z79.899 Other long term (current) drug therapy; W18.30XA Fall on same level, unspecified, initial encounter; Y92.009 Unspecified place in unspecified non-institutional (private) residence as the place of occurrence of the external cause
CPT/HCPCS: 36415; 51702; 71045; 72170; 73552; 80053; 81001; 83735; 83880; 84484; 85025; 85610; 85652; 85730; 86140; 93005; 96361; 96374; 96375; 99285; J1170; J2405; J7030

== ENCOUNTER 2019-11-13 16:50 | Observation (INO) | payer MEDICARE, OTHER ==
[2019-11-13] MEDS ORDERED: Sodium Chloride 0.9% 1,000 ML IV SCH (18:45)
--- NOTE | 2019-11-13 18:49 | EDM.PDOC ---
<Leonel Martin Ras - Last Filed: 11/13/19 20:35> ED HPI GENERAL MEDICAL PROBLEM - General Chief Complaint: Fever Stated Complaint: FEVER AND CHILLS Time Seen by Provider: 11/13/19 17:19 Source of Information: Reports: Patient, Family, RN Notes Reviewed - History of Present Illness INITIAL COMMENTS - FREE TEXT/NARRATIVE: 84-year-old male that had onset of fever and chills this afternoon about 4 hours ago. His family did give him Tylenol about 2 or 3 hours ago. Family states his temp was up to around 102. Now on arrival to ED he is afebrile. He has had voiding frequency for the past few days. He had partial hip replacement or repair 2 weeks ago at [facility]. He did have some voiding difficulty after that so had a catheter right after the surgery and then had a catheter placed again about a week ago, removed 3 or 4 days ago. He denies hematuria or voiding dysuria. He has not been coughing. He denies sore throat abdominal or other major discomfort. He has been rehabbing quite well with the left hip. Treatments COMMUNICATIONS DEPARTMENT CHAIR: Reports: Acetaminophen - Related Data Allergies Allergy/AdvReac Type Severity Reaction Status Date / Time Penicillins Allergy Hives Verified 11/13/19 17:20 Home Meds: Home Meds Furosemide 40 mg PO DAILY 12/28/15 [History] Metoprolol Tartrate 25 mg PO BID 12/28/15 [History] Finasteride 5 mg PO DAILY 10/09/18 [History] Omeprazole 20 mg PO BIDAC 10/09/18 [History] atorvaSTATin [Lipitor] 40 mg PO BEDTIME 10/09/18 [History] Timolol Maleate [Timoptic 0.5% Ophth Soln] 1 drop EYEBOTH DAILY 02/12/19 [ History] Tamsulosin [Flomax] 0.4 mg PO BID #30 cap.er 02/17/19 [Rx] Aspirin [Ecotrin EC] 81 mg PO BID 11/13/19 [History] Past Medical History HEENT History: Reports: Glaucoma, Impaired Vision Other HEENT History: wears glasses Cardiovascular History: Reports: High Cholesterol, Hypertension Respiratory History: Reports: None Gastrointestinal History: Reports: Inflammatory Bowel Disease Other Gastrointestinal History: Hernia Genitourinary History: Reports: BPH, Other (See Below) Musculoskeletal History: Reports: Arthritis Neurological History: Reports: CVA, Head Trauma, Other (See Below) 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 Psychiatric History: Reports: None Endocrine/Metabolic History: Reports: None Hematologic History: Reports: None Other Hematologic History: septic shock Immunologic History: Reports: None Oncologic (Cancer) History: Reports: Bladder Dermatologic History: Reports: None - Infectious Disease History Infectious Disease History: Reports: None - Past Surgical History HEENT Surgical History: Reports: Cataract Surgery, Tonsillectomy, Other (See Below) Cardiovascular Surgical History: Reports: Carotid Stents GI Surgical History: Reports: Cholecystectomy, Colonoscopy, EGD, ERCP, Hernia, Inguinal Male Surgical History: Reports: Other (See Below) Musculoskeletal Surgical History: Reports: Carpal Tunnel, Hip Replacement, Knee Replacement, ORIF, Other (See Below) Other Musculoskeletal Surgeries/Procedures:: Bilateral Hip Surgeries - History Comment History Comment: family prefers we do surgery here. Informed about no neuro, cardiac or pulmonology specialists. Agrees to proceed Social & Family History - Family History Family Medical History: Noncontributory - Tobacco Use Smoking Status *Q: Never Smoker - Caffeine Use Caffeine Use: Reports: Tea - Recreational Drug Use Recreational Drug Use: No - Living Situation & Occupation Living situation: Reports: , with Spouse Occupation: Retired ED ROS GENERAL - Review of Systems Review Of Systems: See Below Constitutional: Reports: Fever HEENT: Denies: Sinus Problem, Throat Pain Respiratory: Denies: Shortness of Breath, Cough Cardiovascular: Denies: Chest Pain GI/Abdominal: Denies: Abdominal Pain, Diarrhea, Nausea, Vomiting : Reports: Frequency Musculoskeletal: Reports: Other (Mild left hip discomfort, has been rehabbing quite well with that) Skin: Denies: Rash, Erythema Neurological: Reports: Weakness (Mild generalized). Denies: Trouble Speaking ED EXAM, GENERAL - Physical Exam Exam: See Below General Appearance: Alert, No Apparent Distress Eye Exam: Bilateral Eye: PERRL Throat/Mouth: Normal Inspection, Normal Oropharynx Head: Atraumatic Neck: Supple, Full Range of Motion Respiratory/Chest: No Respiratory Distress, Lungs Clear, Normal Breath Sounds Cardiovascular: Regular Rate, Rhythm GI/Abdominal: Soft Course - Vital Signs Last Recorded V/S: Last Vital Signs Temp 36.2 C 11/13/19 17:15 Pulse 108 H 11/13/19 17:15 Resp 18 11/13/19 17:15 BP 102/60 11/13/19 17:15 Pulse Ox 94 L 11/13/19 17:15 - Orders/Labs/Meds Orders: Active Orders 24 hr Category Date Time Status Patient Status Manage Transfer [TRANSFER] Routine ADT 11/13/19 22:22 Ordered Murphy Catheter Insertion [Insert Urinary Catheter] [OM. Care 11/13/19 20:00 Ordered PC] Q24H Urinary Catheter Assessment [RC] ASDIRECTED Care 11/13/19 20:02 Active Chest 1V Frontal [CR] Stat Exams 11/13/19 17:35 Taken CULTURE BLOOD [BC] Stat Lab 11/13/19 21:42 Ordered CULTURE BLOOD [BC] Stat Lab 11/13/19 21:42 Ordered LACTIC ACID [CHEM] Stat Lab 11/13/19 21:55 Ordered Sodium Chloride 0.9% [Normal Saline] 1,000 ml Med 11/13/19 18:45 Active IV ONETIME Blood Culture x2 Reflex Set [OM.PC] Stat Oth 11/13/19 21:41 Ordered Medication Orders Sodium Chloride (Normal Saline) 1,000 mls @ 999 mls/hr IV ONETIME JEFF Last Admin: 11/13/19 18:55 Dose: 999 mls/hr Labs: Laboratory Tests 11/13/19 11/13/19 11/13/19 Range/Units 17:20 17:30 19:50 WBC 16.33 H (4.23-9.07) K/mm3 RBC 3.62 L (4.63-6.08) M/mm3 Hgb 10.8 L D (13.7-17.5) gm/dl Hct 33.4 L (40.1-51.0) % MCV 92.3 H (79.0-92.2) fl MCH 29.8 (25.7-32.2) pg MCHC 32.3 (32.2-35.5) g/dl RDW Std Deviation 43.3 (35.1-43.9) fL Plt Count 268 D (163-337) K/mm3 MPV 12.0 (9.4-12.3) fl Neut % (Auto) 83.4 H (34.0-67.9) % Lymph % (Auto) 7.2 L (21.8-53.1) % [place] % (Auto) 8.7 (5.3-12.2) % Eos % (Auto) 0.3 L (0.8-7.0) Baso % (Auto) 0.2 (0.1-1.2) % Neut # (Auto) 13.62 H (1.78-5.38) K/mm3 Lymph # (Auto) 1.17 L (1.32-3.57) K/mm3 [place] # (Auto) 1.42 H (0.30-0.82) K/mm3 Eos # (Auto) 0.05 (0.04-0.54) K/mm3 Baso # (Auto) 0.03 (0.01-0.08) K/mm3 Manual Slide Review Abnormal smear Sodium 141 (136-145) mEq/L Potassium 3.4 L (3.5-5.1) mEq/L Chloride 105 (98-107) mEq/L Carbon Dioxide 27 (21-32) mEq/L Anion Gap 12.4 (5-15) BUN 19 H (7-18) mg/dL Creatinine 1.0 (0.7-1.3) mg/dL Est Cr Clr Drug Dosing 53.03 mL/min Estimated GFR (MDRD) > 60 (>60) mL/min BUN/Creatinine Ratio 19.0 H (14-18) Glucose 249 H (83-115) mg/dL Calcium 8.2 L (8.5-10.1) mg/dL Total Bilirubin 1.9 H (0.2-1.0) mg/dL AST 19 (15-37) U/L ALT 23 (16-63) U/L Alkaline Phosphatase 111 (46-116) U/L Total Protein 6.6 (6.4-8.2) g/dl Albumin 2.8 L (3.4-5.0) g/dl Globulin 3.8 gm/dL Albumin/Globulin Ratio 0.7 L (1-2) Urine Color Yellow (Yellow) Urine Appearance Clear (Clear) Urine pH 6.0 (5.0-8.0) Ur Specific [place] 1.025 (1.005-1.030) Urine Protein Negative (Negative) Urine Glucose (UA) Negative (Negative) Urine Ketones Negative (Negative) Urine Occult Blood Negative (Negative) Urine Nitrite Negative (Negative) Urine Bilirubin Negative (Negative) Urine Urobilinogen 1.0 (0.2-1.0) Ur Leukocyte Esterase Negative (Negative) Urine RBC 0-5 (0-5) /hpf Urine WBC 0-5 (0-5) /hpf Ur Squamous Epith Cells 0-5 (0-5) /hpf Urine Bacteria Few (FEW) /hpf Urine Mucus Moderate H (FEW) /hpf Meds: Medications Generic Name Dose Route Start Last Admin Trade Name Freq PRN Reason Stop Dose Admin Sodium Chloride 1,000 mls @ 999 mls/hr 11/13/19 18:45 11/13/19 18:55 Normal Saline IV 999 mls/hr ONETIME JEFF Administration Discontinued Medications Generic Name Dose Route Start Last Admin Trade Name Freq PRN Reason Stop Dose Admin Acetaminophen 975 mg 11/13/19 20:22 11/13/19 20:32 Tylenol PO 11/13/19 20:23 975 mg NOW ONE Administration - Re-Assessments/Exams Free Text/Narrative Re-Assessment/Exam: 11/13/19 20:36 Ordered UA some time ago, patient has not been able to void despite drinking water, IV fluid. We did do a bladder scan a short time ago that showed under the nail of urine in the bladder. Her Murphy catheter has been placed, UA pending. It is well past change of shift, will transfer care to Dr. Mcmahon at this time. Departure - Departure Time of Disposition: 19:51 Disposition: Refer to Observation Condition: Fair Clinical Impression: Fever and chills, Tachycardia, Lethargy, Status post hip surgery - Discharge Information Sepsis Event Note - Evaluation Sepsis Screening Result: Possible Sepsis Risk - Focused Exam Vital Signs: Vital Signs Temp Pulse Resp BP Pulse Ox 11/13/19 17:15 36.2 C 108 H 18 102/60 94 L Date Exam was Performed: 11/13/19 Time Exam was Performed: 20:36 - My Orders Last 24 Hours: My Active Orders 11/13/19 21:41 Blood Culture x2 Reflex Set [OM.PC] Stat 11/13/19 21:42 CULTURE BLOOD [BC] Stat CULTURE BLOOD [BC] Stat 11/13/19 21:55 LACTIC ACID [CHEM] Stat 11/13/19 22:22 Patient Status Manage Transfer [TRANSFER] Routine - Assessment/Plan Last 24 Hours: My Active Orders 11/13/19 21:41 Blood Culture x2 Reflex Set [OM.PC] Stat 11/13/19 21:42 CULTURE BLOOD [BC] Stat CULTURE BLOOD [BC] Stat 11/13/19 21:55 LACTIC ACID [CHEM] Stat 11/13/19 22:22 Patient Status Manage Transfer [TRANSFER] Routine <Baljinder Mcmahon - Last Filed: 11/13/19 22:45> Course - Vital Signs Text/Narrative:: The patient was brought in with a fever at home. The family is used an electronic thermometer and got temperatures over 101 at least once. This was during a time the patient was experiencing chills. On evaluation here no fever has been noted but patient was mildly tachycardic when he came in. There is no obvious nidus of infection at this point but the patient is quite listless and lethargic. Cultures and lactic acid are pending. Discussed with Dr. Márquez. The patient's urine is without evidence of infection. Chest x-ray without infiltrate and lungs are clear to auscultation. Abdomen is soft. The surgical wound left hip has bj in place and is completely clean without redness or discharge. The patient has risk factors and that he has had 2 surgeries in the not too distant past. He also has had to have an indwelling Murphy. In light of the fever tachycardia and listlessness the patient needs to be observed. I agree that he may not have a bacterial process and there may be a viral infection driving his current illness. In any event I am suggesting the patient come in as an observation patient on telemetry with cultures pending and lactic acid also pending. Suggest holding antibiotics and if the patient does spike a fever reculture him and start antibiotics if that is the wish of the attending physician. Departure - Departure Condition: Fair Sepsis Event Note - Focused Exam Date Exam was Performed: 11/13/19 Time Exam was Performed: 22:44
[2019-11-13] MEDS ORDERED: Acetaminophen 325 MG Tab PO ONE (20:22)
[2019-11-14] MEDS ORDERED: Aspirin 325 MG Tab.EC PO SCH (09:00)
[2019-11-14] MEDS ORDERED: Tamsulosin 0.4 MG Cap.ER PO SCH (09:00)
[2019-11-14] MEDS ORDERED: Timolol Maleate 0.5% Ophth Soln 5 ML Bottle EYEBOTH SCH (09:00)
[2019-11-14] MEDS ORDERED: Finasteride 5 MG Tab PO SCH (09:00)
[2019-11-14] MEDS ORDERED: Metoprolol Tartrate 25 MG Tab PO SCH (09:00)
[2019-11-14] MEDS ORDERED: Aspirin 81 MG Tab.EC PO SCH (09:52)
[2019-11-14] MEDS ORDERED: Finasteride 5 MG Tab**OWN MED PO SCH (09:54)
[2019-11-14] MEDS ORDERED: Metoprolol Tartrate 25 MG Tab**OWN MED PO SCH (09:55)
[2019-11-14] MEDS ORDERED: Tamsulosin 0.4 MG Cap.ER**OWN MED PO SCH (10:00)
--- NOTE | 2019-11-14 11:19 | PCM.HP.2 ---
H&P History of Present Illness - General Date of Service: 11/14/19 Admit Problem/Dx: Admission Diagnosis/Problem Admission Diagnosis/Problem Fever, unspecified - History of Present Illness Initial Comments - Free Text/Narative: 84-year-old male that had one episode of fever at home approximately 4 hours prior to arriving at the emergency room. Family states that his temperature was around 101 to 102 and he had shaking chills. When he presented to the emergency room he was afebrile and asymptomatic other than having difficulty urinating. Patient states that he had a partial left hip replacement 2 weeks ago at [facility] and following surgery he had difficulty urinating. A Murphy catheter was placed he had it removed on November 09. Patient has had difficulty with urinating since that time. He denies any dysuria, hematuria, abdominal pain, headache, photophobia, cough, or shortness of breath. In the emergency room another Murphy catheter was placed but I cannot find how much was voided. Chest x-ray showed no infiltrate. Heart rate initially was 108 but when admitted it was 76. He was given 1 L normal saline bolus and 975 mg of acetaminophen. Labs: WBC 16.33 with 0 bands and 83% neutrophils. Sodium 141, potassium 3.4, BUN 19, creatinine 1.0, glucose 249, total bilirubin 1.9, lactic acid 0.7. UA WBC 0-5. Otherwise negative. ER physician reports that the surgical site on the left hip looks clean and dry. - Related Data Allergies/Adverse Reactions: Allergies Allergy/AdvReac Type Severity Reaction Status Date / Time Penicillins Allergy Hives Verified 11/13/19 17:20 Home Medications: Home Meds Furosemide 40 mg PO DAILY 12/28/15 [History] Metoprolol Tartrate 25 mg PO BID 12/28/15 [History] Finasteride 5 mg PO DAILY 10/09/18 [History] atorvaSTATin [Lipitor] 40 mg PO BEDTIME 10/09/18 [History] Aspirin 81 mg PO BEDTIME 11/14/19 [History] Tamsulosin HCl [Flomax] 0.8 mg PO DAILY 11/14/19 [History] Timolol Maleate [Timoptic 0.5% Ophth Soln] 1 ml EYEBOTH DAILY bottle 11/14/19 [ Rx] Past Medical History HEENT History: Reports: Glaucoma, Impaired Vision Other HEENT History: wears glasses Cardiovascular History: Reports: High Cholesterol, Hypertension Respiratory History: Reports: None Gastrointestinal History: Reports: Inflammatory Bowel Disease Other Gastrointestinal History: Hernia Genitourinary History: Reports: BPH, Other (See Below) Musculoskeletal History: Reports: Arthritis Neurological History: Reports: CVA, Head Trauma, Other (See Below) 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 Psychiatric History: Reports: None Endocrine/Metabolic History: Reports: None Hematologic History: Reports: None Other Hematologic History: septic shock Immunologic History: Reports: None Oncologic (Cancer) History: Reports: Bladder Dermatologic History: Reports: None - Infectious Disease History Infectious Disease History: Reports: None - Past Surgical History HEENT Surgical History: Reports: Cataract Surgery, Tonsillectomy, Other (See Below) Cardiovascular Surgical History: Reports: Carotid Stents GI Surgical History: Reports: Cholecystectomy, Colonoscopy, EGD, ERCP, Hernia, Inguinal Male Surgical History: Reports: Other (See Below) Musculoskeletal Surgical History: Reports: Carpal Tunnel, Hip Replacement, Knee Replacement, ORIF, Other (See Below) Other Musculoskeletal Surgeries/Procedures:: Bilateral Hip Surgeries - History Comment History Comment: family prefers we do surgery here. Informed about no neuro, cardiac or pulmonology specialists. Agrees to proceed Social & Family History - Family History Family Medical History: Noncontributory - Tobacco Use Smoking Status *Q: Never Smoker - Caffeine Use Caffeine Use: Reports: Tea - Recreational Drug Use Recreational Drug Use: No - Living Situation & Occupation Living situation: Reports: , with Spouse Occupation: Retired H&P Review of Systems - Review of Systems: Review Of Systems: Comprehensive ROS is negative, except as noted in HPI. General: Reports: Fever, Chills HEENT: Reports: No Symptoms Pulmonary: Reports: No Symptoms Cardiovascular: Reports: No Symptoms Gastrointestinal: Reports: No Symptoms Genitourinary: Reports: Retention. Denies: Dysuria Skin: Reports: No Symptoms Psychiatric: Reports: No Symptoms Exam - Exam Exam: See Below - Vital Signs Vital Signs: Last Vital Signs Temp 98.1 F 11/14/19 08:46 Pulse 101 H 11/14/19 08:46 Resp 16 11/14/19 08:46 BP 106/60 11/14/19 08:46 Pulse Ox 97 11/14/19 08:46 Weight: 177 lb 6.4 oz - Exam General: Alert HEENT: Conjunctiva Clear, Hearing Intact, Mucosa Moist & [place] Neck: Supple, Trachea Midline, 2 Lungs: Clear to Auscultation, Normal Respiratory Effort Cardiovascular: Regular Rate, Regular Rhythm GI/Abdominal Exam: Normal Bowel Sounds, Soft, Non-Tender, No Organomegaly, No Distention Back Exam: Normal Inspection Extremities: Normal Inspection, Normal Range of Motion, Non-Tender, No Pedal Edema, Normal Capillary Refill, Other (Surgical site on the left hip is without drainage, erythema, and looks clean and dry without infection.) Skin: Warm, Dry, Intact, Incision (Left hip surgical wound clean and dry without infection.) Neurological: Cranial Nerves Intact, Reflexes Equal Bilateral Neuro Extensive - Mental Status: Alert, Oriented x3 Psychiatric: Alert, Normal Affect, Normal Mood - Patient Data Lab Results Last 24 hrs: Laboratory Results - last 24 hr 11/13/19 11/13/19 11/13/19 Range/Units 17:20 17:30 19:50 WBC 16.33 H (4.23-9.07) K/mm3 RBC 3.62 L (4.63-6.08) M/mm3 Hgb 10.8 L D (13.7-17.5) gm/dl Hct 33.4 L (40.1-51.0) % MCV 92.3 H (79.0-92.2) fl MCH 29.8 (25.7-32.2) pg MCHC 32.3 (32.2-35.5) g/dl RDW Std Deviation 43.3 (35.1-43.9) fL Plt Count 268 D (163-337) K/mm3 MPV 12.0 (9.4-12.3) fl Neut % (Auto) 83.4 H (34.0-67.9) % Lymph % (Auto) 7.2 L (21.8-53.1) % [place] % (Auto) 8.7 (5.3-12.2) % Eos % (Auto) 0.3 L (0.8-7.0) Baso % (Auto) 0.2 (0.1-1.2) % Neut # (Auto) 13.62 H (1.78-5.38) K/mm3 Lymph # (Auto) 1.17 L (1.32-3.57) K/mm3 [place] # (Auto) 1.42 H (0.30-0.82) K/mm3 Eos # (Auto) 0.05 (0.04-0.54) K/mm3 Baso # (Auto) 0.03 (0.01-0.08) K/mm3 Manual Slide Review Abnormal smear Sodium 141 (136-145) mEq/L Potassium 3.4 L (3.5-5.1) mEq/L Chloride 105 (98-107) mEq/L Carbon Dioxide 27 (21-32) mEq/L Anion Gap 12.4 (5-15) BUN 19 H (7-18) mg/dL Creatinine 1.0 (0.7-1.3) mg/dL Est Cr Clr Drug Dosing 53.03 mL/min Estimated GFR (MDRD) > 60 (>60) mL/min BUN/Creatinine Ratio 19.0 H (14-18) Glucose 249 H (83-115) mg/dL Lactic Acid (0.4-2.0) mmol/L Calcium 8.2 L (8.5-10.1) mg/dL Magnesium (1.8-2.4) mg/dl Total Bilirubin 1.9 H (0.2-1.0) mg/dL AST 19 (15-37) U/L ALT 23 (16-63) U/L Alkaline Phosphatase 111 (46-116) U/L Total Protein 6.6 (6.4-8.2) g/dl Albumin 2.8 L (3.4-5.0) g/dl Globulin 3.8 gm/dL Albumin/Globulin Ratio 0.7 L (1-2) Urine Color Yellow (Yellow) Urine Appearance Clear (Clear) Urine pH 6.0 (5.0-8.0) Ur Specific [place] 1.025 (1.005-1.030) Urine Protein Negative (Negative) Urine Glucose (UA) Negative (Negative) Urine Ketones Negative (Negative) Urine Occult Blood Negative (Negative) Urine Nitrite Negative (Negative) Urine Bilirubin Negative (Negative) Urine Urobilinogen 1.0 (0.2-1.0) Ur Leukocyte Esterase Negative (Negative) Urine RBC 0-5 (0-5) /hpf Urine WBC 0-5 (0-5) /hpf Ur Squamous Epith Cells 0-5 (0-5) /hpf Urine Bacteria Few (FEW) /hpf Urine Mucus Moderate H (FEW) /hpf 11/13/19 11/14/19 11/14/19 Range/Units 22:15 08:36 08:36 WBC 10.10 H (4.23-9.07) K/mm3 RBC 3.39 L (4.63-6.08) M/mm3 Hgb 10.0 L (13.7-17.5) gm/dl Hct 31.2 L (40.1-51.0) % MCV 92.0 (79.0-92.2) fl MCH 29.5 (25.7-32.2) pg MCHC 32.1 L (32.2-35.5) g/dl RDW Std Deviation 43.0 (35.1-43.9) fL Plt Count 261 (163-337) K/mm3 MPV 11.8 (9.4-12.3) fl Neut % (Auto) 74.5 H (34.0-67.9) % Lymph % (Auto) 14.5 L (21.8-53.1) % [place] % (Auto) 9.3 (5.3-12.2) % Eos % (Auto) 1.1 (0.8-7.0) Baso % (Auto) 0.4 (0.1-1.2) % Neut # (Auto) 7.53 H (1.78-5.38) K/mm3 Lymph # (Auto) 1.46 (1.32-3.57) K/mm3 [place] # (Auto) 0.94 H (0.30-0.82) K/mm3 Eos # (Auto) 0.11 (0.04-0.54) K/mm3 Baso # (Auto) 0.04 (0.01-0.08) K/mm3 Manual Slide Review Sodium 143 (136-145) mEq/L Potassium 3.3 L (3.5-5.1) mEq/L Chloride 106 (98-107) mEq/L Carbon Dioxide 26 (21-32) mEq/L Anion Gap 14.3 (5-15) BUN 18 (7-18) mg/dL Creatinine 0.7 (0.7-1.3) mg/dL Est Cr Clr Drug Dosing 75.75 mL/min Estimated GFR (MDRD) > 60 (>60) mL/min BUN/Creatinine Ratio 25.7 H (14-18) Glucose 158 H (83-115) mg/dL Lactic Acid 0.7 (0.4-2.0) mmol/L Calcium 8.3 L (8.5-10.1) mg/dL Magnesium 1.9 (1.8-2.4) mg/dl Total Bilirubin 1.9 H (0.2-1.0) mg/dL AST 18 (15-37) U/L ALT 22 (16-63) U/L Alkaline Phosphatase 101 (46-116) U/L Total Protein 6.4 (6.4-8.2) g/dl Albumin 2.7 L (3.4-5.0) g/dl Globulin 3.7 gm/dL Albumin/Globulin Ratio 0.7 L (1-2) Urine Color (Yellow) Urine Appearance (Clear) Urine pH (5.0-8.0) Ur Specific [place] (1.005-1.030) Urine Protein (Negative) Urine Glucose (UA) (Negative) Urine Ketones (Negative) Urine Occult Blood (Negative) Urine Nitrite (Negative) Urine Bilirubin (Negative) Urine Urobilinogen (0.2-1.0) Ur Leukocyte Esterase (Negative) Urine RBC (0-5) /hpf Urine WBC (0-5) /hpf Ur Squamous Epith Cells (0-5) /hpf Urine Bacteria (FEW) /hpf Urine Mucus (FEW) /hpf Result Diagrams: 11/14/19 08:36 11/14/19 08:36 Caden Results Last 24 hrs: Microbiology 11/13/19 17:50 Influenza Type A Antigen Screen - Final Nasopharyngeal Swab NEGATIVE INFLUENZA A VIRUS AG REFERENCE RANGE: NEGATIVE Influenza Type B Antigen Screen - Final NEGATIVE INFLUENZA B VIRUS AG REFERENCE RANGE: NEGATIVE Sepsis Event Note - Evaluation Sepsis Screening Result: No Definite Risk - Focused Exam Vital Signs: Vital Signs Temp Pulse Pulse Resp BP BP Pulse Ox 11/14/19 08:46 98.1 F 101 H 16 106/60 97 11/14/19 03:43 97.7 F 87 14 118/60 97 11/13/19 23:21 76 20 110/55 L 95 Date Exam was Performed: 11/14/19 Time Exam was Performed: 15:08 Problem List Initiated/Reviewed/Updated: Yes Orders Last 24hrs: Active Orders 24 hr Category Date Time Status Patient Status [ADT] Routine ADT 11/14/19 01:20 Active Aspiration Precautions [RC] ASDIRECTED Care 11/14/19 00:03 Active Murphy Catheter Insertion [Insert Urinary Catheter] [OM. Care 11/13/19 20:00 Ordered PC] Q24H Up With Assistance [RC] ASDIRECTED Care 11/14/19 00:02 Active Urinary Catheter Assessment [RC] 04,10,16,22 Care 11/13/19 20:02 Active Regular Diet [DIET] Diet 11/14/19 Breakfast Active Chest 1V Frontal [CR] Stat Exams 11/13/19 17:35 Taken CULTURE BLOOD [BC] Stat Lab 11/13/19 22:15 Received CULTURE BLOOD [BC] Stat Lab 11/13/19 22:23 Received Aspirin [Halfprin] Med 11/14/19 09:52 Active 81 mg PO BID Finasteride [Proscar] Med 11/14/19 09:54 Active 5 mg PO DAILY Metoprolol Tartrate [Lopressor] Med 11/14/19 09:55 Active 25 mg PO BID Tamsulosin [Flomax] Med 11/14/19 10:00 Active 0.8 mg PO PCBREAKFAST Timolol Maleate [Timoptic 0.5% Ophth Soln] Med 11/14/19 09:00 Pending DOSE ml EYEBOTH DAILY Blood Culture x2 Reflex Set [OM.PC] Stat Oth 11/13/19 21:41 Ordered Code Status [Resuscitation Status] Routine Resus Stat 11/14/19 00:24 Ordered Medication Orders Aspirin (Halfprin) 81 mg PO BID JEFF Finasteride (Proscar) 5 mg PO DAILY JEFF Metoprolol Tartrate (Lopressor) 25 mg PO BID JEFF Tamsulosin HCl (Flomax) 0.8 mg PO PCBREAKFAST [facility] Last Admin: 11/14/19 10:34 Dose: 0.8 mg Timolol Maleate (Timoptic 0.5% Ophth Soln) ml EYEBOTH DAILY JEFF Assessment/Plan Comment:: Assessment * Reported fever at home between 101 and 102 * Afebrile in the emergency room * White count 16,000 * Recent left hip surgery * Normal chest x-ray * Negative influenza screen * Hypokalemia -potassium 3.4 Plan * Patient did overnight for observation. * Bridge orders written by emergency room physician. * Patient monitored for fever and was afebrile overnight. * Patient denies any pain. States he is feeling well. He wishes to go home. * CBC and CMP then discharge home if CBC and CMP are stable. - Mortality Measure Prognosis:: Good
[2019-11-14] MEDS ORDERED: Potassium Chloride 20 MEQ Tab.ER PO ONE (11:22)
[2019-11-14] MEDS ORDERED: Acetaminophen 325 MG Tab PO ONE (11:31)
[2019-11-14 12:02] VITALS: BP 130/59; PULSE 94
--- NOTE | 2019-11-14 15:17 | PCM.DCSUM1 ---
Discharge Summary - Hospital Course HPI Initial Comments: 84-year-old male that had one episode of fever at home approximately 4 hours prior to arriving at the emergency room. Family states that his temperature was around 101 to 102 and he had shaking chills. When he presented to the emergency room he was afebrile and asymptomatic other than having difficulty urinating. Patient states that he had a partial left hip replacement [address] [facility] and following surgery he had difficulty urinating. A Murphy catheter was placed he had it removed on November 09. Patient has had difficulty with urinating since that time. He denies any dysuria, hematuria, abdominal pain, headache, photophobia, cough, or shortness of breath. In the emergency room another Murphy catheter was placed but I cannot find how much was voided. Chest x-ray showed no infiltrate. Heart rate initially was 108 but when admitted it was 76. He was given 1 L normal saline bolus and 975 mg of acetaminophen. Labs: WBC 16.33 with 0 bands and 83% neutrophils. Sodium 141, potassium 3.4, BUN 19, creatinine 1.0, glucose 249, total bilirubin 1.9, lactic acid 0.7. UA WBC 0-5. Otherwise negative. ER physician reports that the surgical site on the left hip looks clean and dry. Diagnosis: Stroke: No - Discharge Data Discharge Date: 11/14/19 Discharge Disposition: Home, Self-Care 01 Condition: Stable - Referral to Home Health Primary Care Physician: Jarad Montana MD - Patient Summary/Data Hospital Course: Patient was admitted for overnight observation for fever at home. White count came down from 16,000-10,000 without treatment. Patient also had mild hypokalemia on admission of 3.4 and it decreased overnight with fluids to 3.3. He was given potassium chloride 40 mEq p.o. prior to discharging home. Patient had uneventful hospitalization and wishes to go home. Patient was counseled that if he has any worsening of symptoms he should return to the emergency room. Murphy catheter was reinserted for urinary retention. He will need follow-up with urology. - Patient Instructions Diet: Usual Diet as Tolerated Driving: Do Not Drive Showering/Bathing: May Shower Other/Special Instructions: Follow-up with urology in 1 to 2 weeks. You are going home with the indwelling Murphy catheter. Follow-up with your primary care provider in 1 week. - Discharge Plan *PRESCRIPTION DRUG MONITORING PROGRAM REVIEWED*: No *COPY OF PRESCRIPTION DRUG MONITORING REPORT IN PATIENT CHHAYA: No Home Medications: Home Meds Furosemide 40 mg PO DAILY 12/28/15 [History] Metoprolol Tartrate 25 mg PO BID 12/28/15 [History] Finasteride 5 mg PO DAILY 10/09/18 [History] atorvaSTATin [Lipitor] 40 mg PO BEDTIME 10/09/18 [History] Aspirin 81 mg PO BEDTIME 11/14/19 [History] Tamsulosin HCl [Flomax] 0.8 mg PO DAILY 11/14/19 [History] Timolol Maleate [Timoptic 0.5% Ophth Soln] 1 ml EYEBOTH DAILY bottle 11/14/19 [ Rx] Patient Handouts: Fever, Adult, [id number] - Discharge Summary/Plan Comment DC Time >30 min.: No Discharge Summary/Plan Comment: Discharge home to follow-up with orthopedic surgeon and primary care provider. Patient did have a Murphy catheter placed and will need to follow-up with urology. - General Info Date of Service: 11/14/19 Admission Dx/Problem (Free Text: Admission Diagnosis/Problem Admission Diagnosis/Problem Fever, unspecified Subjective Update: Patient denies any new onset of pain or fever. Functional Status: Reports: Pain Controlled - Review of Systems General: Reports: No Symptoms HEENT: Reports: No Symptoms Pulmonary: Reports: No Symptoms Cardiovascular: Reports: No Symptoms Gastrointestinal: Reports: No Symptoms Genitourinary: Reports: No Symptoms - Patient Data Vitals - Most Recent: Last Vital Signs Temp 97.9 F 11/14/19 11:54 Pulse 94 11/14/19 11:54 Resp 16 11/14/19 08:46 BP 130/59 L 11/14/19 11:54 Pulse Ox 100 11/14/19 11:54 Weight - Most Recent: 177 lb 6.4 oz I&O - Last 24 hours: Intake & Output 11/14/19 11/14/19 11/14/19 06:59 14:59 22:59 Intake Total 250 180 Output Total 750 Balance -500 180 Lab Results - Last 24 hrs: Laboratory Results - last 24 hr 11/13/19 11/13/19 11/13/19 Range/Units 17:20 17:30 19:50 WBC 16.33 H (4.23-9.07) K/mm3 RBC 3.62 L (4.63-6.08) M/mm3 Hgb 10.8 L D (13.7-17.5) gm/dl Hct 33.4 L (40.1-51.0) % MCV 92.3 H (79.0-92.2) fl MCH 29.8 (25.7-32.2) pg MCHC 32.3 (32.2-35.5) g/dl RDW Std Deviation 43.3 (35.1-43.9) fL Plt Count 268 D (163-337) K/mm3 MPV 12.0 (9.4-12.3) fl Neut % (Auto) 83.4 H (34.0-67.9) % Lymph % (Auto) 7.2 L (21.8-53.1) % [place] % (Auto) 8.7 (5.3-12.2) % Eos % (Auto) 0.3 L (0.8-7.0) Baso % (Auto) 0.2 (0.1-1.2) % Neut # (Auto) 13.62 H (1.78-5.38) K/mm3 Lymph # (Auto) 1.17 L (1.32-3.57) K/mm3 [place] # (Auto) 1.42 H (0.30-0.82) K/mm3 Eos # (Auto) 0.05 (0.04-0.54) K/mm3 Baso # (Auto) 0.03 (0.01-0.08) K/mm3 Manual Slide Review Abnormal smear Sodium 141 (136-145) mEq/L Potassium 3.4 L (3.5-5.1) mEq/L Chloride 105 (98-107) mEq/L Carbon Dioxide 27 (21-32) mEq/L Anion Gap 12.4 (5-15) BUN 19 H (7-18) mg/dL Creatinine 1.0 (0.7-1.3) mg/dL Est Cr Clr Drug Dosing 53.03 mL/min Estimated GFR (MDRD) > 60 (>60) mL/min BUN/Creatinine Ratio 19.0 H (14-18) Glucose 249 H (83-115) mg/dL Lactic Acid (0.4-2.0) mmol/L Calcium 8.2 L (8.5-10.1) mg/dL Magnesium (1.8-2.4) mg/dl Total Bilirubin 1.9 H (0.2-1.0) mg/dL AST 19 (15-37) U/L ALT 23 (16-63) U/L Alkaline Phosphatase 111 (46-116) U/L Total Protein 6.6 (6.4-8.2) g/dl Albumin 2.8 L (3.4-5.0) g/dl Globulin 3.8 gm/dL Albumin/Globulin Ratio 0.7 L (1-2) Urine Color Yellow (Yellow) Urine Appearance Clear (Clear) Urine pH 6.0 (5.0-8.0) Ur Specific [place] 1.025 (1.005-1.030) Urine Protein Negative (Negative) Urine Glucose (UA) Negative (Negative) Urine Ketones Negative (Negative) Urine Occult Blood Negative (Negative) Urine Nitrite Negative (Negative) Urine Bilirubin Negative (Negative) Urine Urobilinogen 1.0 (0.2-1.0) Ur Leukocyte Esterase Negative (Negative) Urine RBC 0-5 (0-5) /hpf Urine WBC 0-5 (0-5) /hpf Ur Squamous Epith Cells 0-5 (0-5) /hpf Urine Bacteria Few (FEW) /hpf Urine Mucus Moderate H (FEW) /hpf 11/13/19 11/14/19 11/14/19 Range/Units 22:15 08:36 08:36 WBC 10.10 H (4.23-9.07) K/mm3 RBC 3.39 L (4.63-6.08) M/mm3 Hgb 10.0 L (13.7-17.5) gm/dl Hct 31.2 L (40.1-51.0) % MCV 92.0 (79.0-92.2) fl MCH 29.5 (25.7-32.2) pg MCHC 32.1 L (32.2-35.5) g/dl RDW Std Deviation 43.0 (35.1-43.9) fL Plt Count 261 (163-337) K/mm3 MPV 11.8 (9.4-12.3) fl Neut % (Auto) 74.5 H (34.0-67.9) % Lymph % (Auto) 14.5 L (21.8-53.1) % [place] % (Auto) 9.3 (5.3-12.2) % Eos % (Auto) 1.1 (0.8-7.0) Baso % (Auto) 0.4 (0.1-1.2) % Neut # (Auto) 7.53 H (1.78-5.38) K/mm3 Lymph # (Auto) 1.46 (1.32-3.57) K/mm3 [place] # (Auto) 0.94 H (0.30-0.82) K/mm3 Eos # (Auto) 0.11 (0.04-0.54) K/mm3 Baso # (Auto) 0.04 (0.01-0.08) K/mm3 Manual Slide Review Sodium 143 (136-145) mEq/L Potassium 3.3 L (3.5-5.1) mEq/L Chloride 106 (98-107) mEq/L Carbon Dioxide 26 (21-32) mEq/L Anion Gap 14.3 (5-15) BUN 18 (7-18) mg/dL Creatinine 0.7 (0.7-1.3) mg/dL Est Cr Clr Drug Dosing 75.75 mL/min Estimated GFR (MDRD) > 60 (>60) mL/min BUN/Creatinine Ratio 25.7 H (14-18) Glucose 158 H (83-115) mg/dL Lactic Acid 0.7 (0.4-2.0) mmol/L Calcium 8.3 L (8.5-10.1) mg/dL Magnesium 1.9 (1.8-2.4) mg/dl Total Bilirubin 1.9 H (0.2-1.0) mg/dL AST 18 (15-37) U/L ALT 22 (16-63) U/L Alkaline Phosphatase 101 (46-116) U/L Total Protein 6.4 (6.4-8.2) g/dl Albumin 2.7 L (3.4-5.0) g/dl Globulin 3.7 gm/dL Albumin/Globulin Ratio 0.7 L (1-2) Urine Color (Yellow) Urine Appearance (Clear) Urine pH (5.0-8.0) Ur Specific [place] (1.005-1.030) Urine Protein (Negative) Urine Glucose (UA) (Negative) Urine Ketones (Negative) Urine Occult Blood (Negative) Urine Nitrite (Negative) Urine Bilirubin (Negative) Urine Urobilinogen (0.2-1.0) Ur Leukocyte Esterase (Negative) Urine RBC (0-5) /hpf Urine WBC (0-5) /hpf Ur Squamous Epith Cells (0-5) /hpf Urine Bacteria (FEW) /hpf Urine Mucus (FEW) /hpf BEAR Results - Last 24 hrs: Microbiology 11/13/19 17:50 Influenza Type A Antigen Screen - Final Nasopharyngeal Swab NEGATIVE INFLUENZA A VIRUS AG REFERENCE RANGE: NEGATIVE Influenza Type B Antigen Screen - Final NEGATIVE INFLUENZA B VIRUS AG REFERENCE RANGE: NEGATIVE Med Orders - Current: Current Medications Discontinued Medications Acetaminophen (Tylenol) 975 mg PO NOW ONE Stop: 11/13/19 20:23 Last Admin: 11/13/19 20:32 Dose: 975 mg Acetaminophen (Tylenol) 650 mg PO NOW ONE Stop: 11/14/19 11:32 Last Admin: 11/14/19 11:45 Dose: 650 mg Aspirin (Ecotrin) 81 mg PO BID [facility] Last Admin: 11/14/19 10:18 Dose: Not Given Aspirin (Halfprin) 81 mg PO BID [facility] Aspirin (Aspirin) 81 mg PO BEDTIME [facility] Finasteride (Proscar) 5 mg PO DAILY [facility] Last Admin: 11/14/19 10:28 Dose: Not Given Finasteride (Proscar) 5 mg PO DAILY [facility] Sodium Chloride (Normal Saline) 1,000 mls @ 999 mls/hr IV ONETIME [facility] Last Admin: 11/13/19 18:55 Dose: 999 mls/hr Metoprolol Tartrate (Lopressor) 25 mg PO BID [facility] Last Admin: 11/14/19 10:28 Dose: Not Given Metoprolol Tartrate (Lopressor) 25 mg PO BID [facility] Potassium Chloride (Klor-Con M20) 40 meq PO ONETIME ONE Stop: 11/14/19 11:23 Last Admin: 11/14/19 11:45 Dose: 40 meq Tamsulosin HCl (Flomax) 0.4 mg PO BID [facility] Last Admin: 11/14/19 10:19 Dose: Not Given Tamsulosin HCl (Flomax) 0.8 mg PO PCBREAKFAST [facility] Last Admin: 11/14/19 10:34 Dose: 0.8 mg Tamsulosin HCl (Flomax) 0.8 mg PO DAILY [facility] Timolol Maleate (Timoptic 0.5% Ophth Soln) ml EYEBOTH DAILY JEFF - Exam General: Reports: Alert, Oriented HEENT: Reports: Pupils Equal, EOMI, Mucous Membr. Moist/Jet Neck: Reports: Supple Lungs: Reports: Clear to Auscultation, Normal Respiratory Effort Cardiovascular: Reports: Regular Rate, Regular Rhythm GI/Abdominal Exam: Normal Bowel Sounds, Soft, Non-Tender, No Organomegaly, No Distention, No Abnormal Bruit, No Mass (Male) Exam: Other (Murphy catheter) Extremities: Normal Inspection, Normal Range of Motion, Non-Tender, No Pedal Edema, Normal Capillary Refill Wound/Incisions: Reports: Healing Well Psy/Mental Status: Reports: Alert, Normal Affect, Normal Mood
[2019-11-14] MEDS ORDERED: Aspirin 81 MG Tab.Chew PO SCH (21:00)
[2019-11-15] MEDS ORDERED: Tamsulosin 0.4 MG Cap.ER PO SCH (09:00)
--- NOTE | 2019-11-15 12:13 | PCM.SN ---
- Free Text/Narrative Note: Called by lab in regards to positive anaerobic blood culture results. At 30 hours gram negative rods grew out of both anaerobic blood cultures. I contacted the patient and spoke to his who stated he has had no fevers and is asymptomatic. I counseled the patient's that if he develops any illness or fevers he needs to come directly back to the emergency room. Otherwise, we will wait for further identification of the gram-negative rods.
--- NOTE | 2019-11-15 12:53 | PCM.SN ---
- Free Text/Narrative Note: I discussed the case with Dr. Johnson who is the orthopedic surgeon covering for Dr. Art. He is in agreement with starting him on an antibiotic because of his recent left partial hip replacement. Patient will start Bactrim double strength 1 tab twice daily for 14 days pending culture results. I discussed the case with his Lars and patient will get the antibiotics today.
--- NOTE | 2019-11-16 07:12 | CR ---
Chest: Portable view of the chest was obtained. Comparison: Prior chest x-ray of 10/29/19. Heart size and mediastinum are normal. Previous cervical spine surgery is noted. Lungs are clear with no acute parenchymal change. Bony structures are grossly intact. Surgical clips are noted from prior cholecystectomy. Pressure: 1. Nothing acute is seen on portable chest x-ray. Diagnostic code #2 This report was dictated in [place] Standard Time
== END 2019-11-14 12:19 | disposition home or self-care (01) ==
LOC: JD.ED 16:50 → UNDOADMIN 19:52 → JD.MS 19:52
PROVIDERS: ADMIT Family Medicine; ATTEND Family Medicine
DX: R50.9 Fever, unspecified (principal); E87.6 Hypokalemia; E78.00 Pure hypercholesterolemia, unspecified; I10 Essential (primary) hypertension; N40.0 Benign prostatic hyperplasia without lower urinary tract symptoms; M19.90 Unspecified osteoarthritis, unspecified site; Z88.0 Allergy status to penicillin; Z96.642 Presence of left artificial hip joint; Z79.899 Other long term (current) drug therapy
CPT/HCPCS: 36415; 51702; 51798; 71045; 80053; 81001; 83605; 83735; 85025; 87040; 87076; 87181; 87804; 99285; A9270; G0378; J7030; 99219; 99284